=== PATIENT | female | born 1950 | race Caucasian/White ===

== ENCOUNTER → 2016-07-07 | Outpatient (CLI) | payer OTHER ==
[~2016-07-07] MED LIST: CIPR-255 PO; CITA20TA9 PO; CLB/200 PO; LISI-725 PO; METH500T3 PO; MULTTAB58 PO; VITAMIN B12 PO
--- NOTE | 2016-07-07 16:29 | MAMMOGRAPHY REPORT ---
BILATERAL DIGITAL SCREENING MAMMOGRAM WITH CAD: 07/07/2016 CLINICAL HISTORY: Routine screening. Patient has no complaints. TECHNIQUE: Bilateral CC and MLO views were obtained. Current study was also evaluated with a Compu ter Aided Detection (CAD) system. COMPARISON: Comparison is made to exam dated: 07/24/2013 mammogram - [facility]. BREAST COMPOSITION: There are scattered areas of fibroglandular density in both breasts. FINDINGS: There is a benign coarse calcification within the right breast. No suspicious mass, archi tectural distortion or cluster of suspicious microcalcifications is seen. IMPRESSION: ACR BI-RADS CATEGORY 1: NEGATIVE There is no mammographic evidence of malignancy. A 1 year screening mammogram is recommended. The p atient will receive written notification of the results. Approximately 10% of breast cancers are not detected with mammography. A negative mammographic repor t should not delay biopsy if a clinically suggestive mass is present. Joanne Stevenson M.D. ay/:07/07/2016 16:18:48 Auto Dismantler: Ruby PLATA(Leander)(Shaista)(BD), [facility] letter sent: Normal 1/2 BI-RADS Code: ACR BI-RADS Category 1: Negative
== END | disposition home or self-care (01) ==
LOC: C.MAMM 15:58
PROVIDERS: ATTEND Nurse Practitioner
DX: Z12.31 Encounter for screening mammogram for malignant neoplasm of breast (principal)

== ENCOUNTER → 2016-11-10 | Outpatient (CLI) | payer OTHER ==
--- NOTE | 2016-11-10 13:22 | DIAGNOSTIC IMAGING REPORT ---
PA CHEST WITH RIGHT-SIDED RIB SERIES CLINICAL HISTORY: Fall with right chest wall pain. FINDINGS: A PA chest radiograph with 4 additional views may right-sided rib series is compared to study dated 12/26/2015. The patient is status post midline sternotomy. The heart is enlarged and there is atherosclerotic calcification of the thoracic aorta. The pulmonary vasculature is noncongested. Chronic interstitial thickening is similar to previous. Minimal bibasilar atelectasis is observed. No airspace consolidation, pleural effusion, or pneumothorax is seen. The skeletal structures are osteopenic. There is no radiographic evidence of acute/distracted right-sided rib fracture on the rib series as clinically queried. The remainder of the bony thorax is grossly intact. Degenerative changes noted throughout the thoracic spine. IMPRESSION: 1. Cardiomegaly with no active disease in the chest. 2. There is no radiographic evidence of right-sided rib fracture as clinically queried. Electronically signed by: Talha Storey M.D. 11/10/2016 1:21 PM Dictated Date/Time: 11/10/2016 1:19 PM
== END | disposition home or self-care (01) ==
LOC: C.RAD1850 12:59
PROVIDERS: ATTEND Nurse Practitioner
DX: R07.81 Pleurodynia (principal); W19.XXXA Unspecified fall, initial encounter

== ENCOUNTER 2016-12-03 13:19 | Emergency (ER) | payer OTHER ==
[~2016-12-03] VITALS: Ht 165.1 cm; Wt 78.8 kg
[2016-12-03 13:23] VITALS: TEMP 37; Ht 165.1 cm; Wt 78.8 kg
--- NOTE | 2016-12-03 13:56 | DIAGNOSTIC IMAGING REPORT ---
CHEST ONE VIEW PORTABLE CLINICAL HISTORY: dizziness pain. Dyspnea. COMPARISON STUDY: 11/10/2016 FINDINGS: Mild stable cardiomegaly. Prior median sternotomy. Lungs are clear. IMPRESSION: No acute process. Mild stable cardiomegaly. The above report was generated using voice recognition software. It may contain grammatical, syntax or spelling errors. Electronically signed by: Michael Powell M.D. 12/03/2016 1:55 PM Dictated Date/Time: 12/03/2016 1:55 PM
--- NOTE | 2016-12-03 14:02 | EMERGENCY ROOM VISIT NOTE ---
History First contact with patient: 13:28 Chief Complaint: HEAD INJURY (MINOR) Stated Complaint: FELL X 6 DAYS, CURRENTLY HAVING HEADACHES History of Present Illness The patient is a 66 year old female who presents to the Emergency Room with complaints of a fall which occurred 6 days ago. The patient states that she was walking to the grocery store when she became dizzy and fell backward, striking her head. There was no loss of consciousness. There was one episode of vomiting that day. Since the fall, she has had a headache which wraps around from the front to the back of her head. She rates that discomfort a 3/ 10. She states that she has had 3 falls in the past 2 weeks due to "dizziness. " She describes this as feeling lightheaded when she stands up and walks which is resolved when she sits down. The symptoms have been constant for approximately 2 weeks. The patient states that she has seen a neurologist in the past due to a tremor in her right hand and being forgetful. She had imaging done there and was told that she has had "several mini strokes" in the past. The patient does state that occasionally, she also develops palpitations and shortness of breath with the lightheadedness. She denies any chest pain. She had a heart surgery as a child, but denies any other cardiac issues since then. She denies any numbness or weakness of her extremities, blurred vision, slurred speech, or facial drooping. Review of Systems A complete 10 point review of systems was reviewed with the patient with pertinent positives and negatives as per history of present illness. All else were negative. Past Medical/Surgical History Medical Problems: (1) Hypertension Family History Heart disease Social History Smoking Status: Never Smoker Marital Status: Housing Status: lives with family Occupation Status: unemployed Current/Historical Medications Scheduled Celecoxib (CeleBREX), 200 MG PO DAILY Ciprofloxacin Hcl (Cipro), 500 MG PO BID Citalopram Hydrobromide (Celexa), 20 MG PO DAILY Lisinopril (Zestril), 20 MG PO DAILY Methylcellulose (Laxative) (Citrucel), 3 TABS PO DAILY Multiple Vitamin (Multivitamin), 1 TAB PO DAILY [Vitamin B12], 1 TAB PO DAILY Physical Exam Vital Signs Date Time Temp Pulse Resp B/P (MAP) Pulse Ox O2 Delivery O2 Flow Rate FiO2 12/03/16 15:43 53 16 131/96 96 Room Air 12/03/16 14:54 51 18 142/77 96 Room Air 56 124/77 60 111/67 12/03/16 14:09 53 12/03/16 13:23 37.0 49 18 156/81 95 Room Air Physical Exam VITALS: Vitals are noted on the nurse's note and reviewed by myself. Vital signs stable. GENERAL: This is a 66-year-old female, in no acute distress, nondiaphoretic, well-developed well-nourished. SKIN: The skin was without rashes, erythema, edema, or bruising. HEAD: Normocephalic atraumatic. EARS: External auditory canals clear, tympanic membranes pearly copeland without erythema or effusion bilaterally. EYES: Pupils equal round and reactive to light and accommodation. Extraocular movements intact. MOUTH: Mucous membranes moist. NECK: Supple without nuchal rigidity. No lymphadenopathy. No tenderness of the cervical spine. HEART: Regular rate and rhythm without murmurs gallops or rubs. LUNGS: Clear to auscultation bilaterally without wheezes, rales or rhonchi. MUSCULOSKELETAL: Full range of motion throughout. Strength 5/5 throughout. NEURO: Patient was alert and oriented to person place and time. Normal sensation to light and sharp touch. Deep tendon reflexes 2+ throughout. No focal neurological deficits. Normal finger to nose testing. Normal rapid alternating movements. Negative Romberg and pronator drift. Medical Decision & Procedures ER Provider Diagnostic Interpretation: CHEST ONE VIEW PORTABLE FINDINGS: Mild stable cardiomegaly. Prior median sternotomy. Lungs are clear. IMPRESSION: No acute process. Mild stable cardiomegaly. HEAD WITHOUT CONTRAST (CT) Findings: The paranasal sinuses and mastoid air cells are clear. The calvarium and skull base are intact. The ventricles and sulci are within normal limits. There is no mass, hematoma, midline shift, or acute infarct. Mild age-related atrophy and chronic small vessel change Impression: No acute intracranial abnormality. Laboratory Results 12/03/16 14:06 Red Blood Count 4.41, Mean Corpuscular Volume 93.0, Mean Corpuscular Hemoglobin 31.1, Mean Corpuscular Hemoglobin Concent 33.4, Mean Platelet Volume 10.1, Neutrophils (%) (Auto) 54.4, Lymphocytes (%) (Auto) 32.9, Monocytes (%) (Auto) 9.2, Eosinophils (%) (Auto) 2.5, Basophils (%) (Auto) 0.5, Neutrophils # (Auto) 4.48, Lymphocytes # (Auto) 2.71, Monocytes # (Auto) 0.76, Eosinophils # (Auto) 0.21, Basophils # (Auto) 0.04 12/03/16 14:06 Test 12/03/16 14:06 White Blood Count 8.24 K/uL (4.8-10.8) Red Blood Count 4.41 M/uL (4.2-5.4) Hemoglobin 13.7 g/dL (12.0-16.0) Hematocrit 41.0 % (37-47) Mean Corpuscular Volume 93.0 fL (80-100) Mean Corpuscular Hemoglobin 31.1 pg (25-34) Mean Corpuscular Hemoglobin Concent 33.4 g/dl (32-36) Platelet Count 259 K/uL (130-400) Mean Platelet Volume 10.1 fL (7.4-10.4) Neutrophils (%) (Auto) 54.4 % Lymphocytes (%) (Auto) 32.9 % Monocytes (%) (Auto) 9.2 % Eosinophils (%) (Auto) 2.5 % Basophils (%) (Auto) 0.5 % Neutrophils # (Auto) 4.48 K/uL (1.4-6.5) Lymphocytes # (Auto) 2.71 K/uL (1.2-3.4) Monocytes # (Auto) 0.76 K/uL (0.11-0.59) Eosinophils # (Auto) 0.21 K/uL (0-0.5) Basophils # (Auto) 0.04 K/uL (0-0.2) RDW Standard Deviation 44.0 fL (36.4-46.3) RDW Coefficient of Variation 12.9 % (11.5-14.5) Immature Granulocyte % (Auto) 0.5 % Immature Granulocyte # (Auto) 0.04 K/uL (0.00-0.02) Anion Gap 6.0 mmol/L (3-11) Est Creatinine Clear Calc Drug Dose 73.5 ml/min Estimated GFR () 93.4 Estimated GFR (Non- 80.6 BUN/Creatinine Ratio 11.1 (10-20) Calcium Level 9.6 mg/dl (8.5-10.1) Magnesium Level 2.0 mg/dl (1.8-2.4) Total Bilirubin 0.6 mg/dl (0.2-1) Aspartate Amino Transf (AST/SGOT) 21 U/L (15-37) Alanine Aminotransferase (ALT/SGPT) 27 U/L (12-78) Alkaline Phosphatase 107 U/L (45-117) Total Protein 7.6 gm/dl (6.4-8.2) Albumin 3.7 gm/dl (3.4-5.0) Globulin 3.9 gm/dl (2.5-4.0) Albumin/Globulin Ratio 0.9 (0.9-2) Thyroid Stimulating Hormone (TSH) 1.130 uIu/ml (0.300-4.500) ECG Indication: other (presyncope/lightheaded) Rate (beats per minute): 51 Rhythm: sinus bradycardia Findings: nonspecific-ST abn (Anterior), other (incomplete RBBB) Change: no significant change (HR decreased from 60 to 51) ED Course The patient was evaluated as above. Labs were drawn and IV access was obtained. Patient case was discussed with the patient's PCP, BARRY Rios with [facility]. She recommended holding the patient's lisinopril and having the patient follow up in one week. Patient was reevaluated and findings were discussed. Discharge instructions were reviewed with the patient. The patient verbalized understanding of my assessment and treatment plan and was discharged home in good condition. Medical Decision Differential diagnosis includes TIA, CVA, symptomatic bradycardia, Parkinson disorder, intracranial hemorrhage, among others. The patient is a 66-year-old female who presents today complaining of a fall which occurred approximately 6 days ago. More concerning, the patient reports she has had multiple episodes of feeling lightheaded and like she was going to pass out over the past few weeks. For this reason, further workup was obtained. CT of the head was unremarkable. Labs revealed no leukocytosis, anemia or concerning electrolyte abnormalities. Orthostatic vital signs were positive. EKG was performed and did show a slight bradycardia, with heart rates fluctuating between the high 40s and mid 50s. I did speak with the patient's primary care provider to ensure that this was a normal finding for the patient, as the last EKG here shows a heart rate of 60. The PCP did state that this is a normal finding for the patient. She recommended holding the patient's lisinopril and having her follow-up in one week. Patient was informed of all findings. She was also encouraged to drink plenty of fluids and stand up slowly to prevent orthostatic hypotension. The patient was agreeable to this treatment plan and will return for any worsening or new/ concerning symptoms. The patient was independently evaluated by Dr. Lake, ED attending physician , who agreed with my assessment and treatment plan. Based on the patient's presentation and work up, I feel the patient is stable for outpatient treatment. The patient was educated to return to the emergency department for any worsening of their current condition or new/concerning symptoms. She will follow up with her PCP in one week. Medication Reconcilliation Current Medication List: was personally reviewed by me Blood Pressure Screening Patient's blood pressure: Normal blood pressure Impression Primary Impression: Closed head injury Additional Impression: Orthostatic hypotension Departure Information Dispostion Home / Self-Care Condition GOOD Referrals Mary Drake, C.R.N.P. (PCP) Patient Instructions My [facility] Additional Instructions Stop taking the lisinopril (Zestril), as this may be making your blood pressure too low. Follow-up with your primary care provider in one week for a recheck. Call the office for an appointment. Make sure you were staying well-hydrated and drinking plenty of water. Take your time standing up so you do not become lightheaded and fall. Return to the emergency department with any chest pain, numbness, weakness, increased falls or any other new/concerning symptoms. Problem Qualifiers Primary Impression: Closed head injury Encounter type: initial encounter Qualified Codes: S09.90XA - Unspecified injury of head, initial encounter
[2016-12-03 14:22] LABS: BASO % 0.5 %; BASO ABS # 0.04 K/uL (0-0.2); COMPLETE YES; EOS % 2.5 %; IG% 0.5 %; LYMPH % 32.9 %; LYMPH ABS # 2.71 K/uL (1.2-3.4); MEAN CORPUSCULAR HEMOGLOBIN 31.1 pg (25-34); MEAN CORPUSCULAR HGB CONC 33.4 g/dl (32-36); MEAN PLATELET VOLUME 10.1 fL (7.4-10.4); MONO % 9.2 %; NEUT % 54.4 %; PLATELET COUNT 259 K/uL (130-400); RED BLOOD COUNT 4.41 M/uL (4.2-5.4); WHITE BLOOD COUNT 8.24 K/uL (4.8-10.8)
--- NOTE | 2016-12-03 14:24 | DIAGNOSTIC IMAGING REPORT ---
HEAD WITHOUT CONTRAST (CT) CT DOSE: 537.48 mGy.cm HISTORY: Trauma. Mental status change. fall, head injury, dizziness TECHNIQUE: Multiaxial CT images of the head were performed without the use of intravenous contrast. A dose lowering technique was utilized adhering to the principles of ALARA. Comparison: 09/01/2014 Findings: The paranasal sinuses and mastoid air cells are clear. The calvarium and skull base are intact. The ventricles and sulci are within normal limits. There is no mass, hematoma, midline shift, or acute infarct. Mild age-related atrophy and chronic small vessel change Impression: No acute intracranial abnormality. The above report was generated using voice recognition software. It may contain grammatical, syntax or spelling errors. Electronically signed by: Michael Powell M.D. 12/03/2016 2:23 PM Dictated Date/Time: 12/03/2016 2:22 PM
[2016-12-03 14:38] LABS: BUN/CREATININE RATIO 11.1 (10-20); CALCIUM 9.6 mg/dl (8.5-10.1); CREATININE 0.76 mg/dl (0.60-1.20)
[2016-12-03 14:49] LABS: ALB/GLOB RATIO 0.9 (0.9-2); THYROID STIMULATING HORMONE 1.13 uIu/ml (0.300-4.500)
--- NOTE | 2016-12-03 15:42 | EMERGENCY ROOM VISIT NOTE ---
ED Visit Note First contact with patient: 13:28 Pt seen at bedside. Discussed sx. The PA discussed with pt's PCP. All questions answered at bedside. VS stable, labs and imaging reassuring.
[2016-12-03 15:43] VITALS: BP 131/96; PULSE 53; O2SAT 96
== END 2016-12-03 15:47 | disposition home or self-care (01) ==
LOC: C.EDB 13:21 → C.EDC 15:47
DX: S09.90XA Unspecified injury of head, initial encounter (principal); I95.1 Orthostatic hypotension; W19.XXXA Unspecified fall, initial encounter; I10 Essential (primary) hypertension

== ENCOUNTER → 2017-03-11 | Outpatient (CLI) | payer OTHER ==
[2017-03-11 12:21] LABS: URINE APPEARANCE CLEAR (CLEAR); URINE BILIRUBIN NEG (NEG); URINE COLOR YELLOW; URINE NITRITE NEG (NEG); URINE PH 8.5 (4.5-7.5); URINE SPECIFIC GRAVITY 1.011 (1.000-1.030); UROBILINOGEN NEG (NEG); ZZUR CULT IF INDIC CLEAN CATCH NO
[2017-03-11 12:32] LABS: MANUAL MICROSCOPIC REQUIRED? NO; REVIEW REQ? NO
[2017-03-11 12:33] LABS: BLOOD UREA NITROGEN 8 mg/dl (7-18); BUN/CREATININE RATIO 9.9 (10-20); CALCIUM 9.5 mg/dl (8.5-10.1); CARBON DIOXIDE 22 mmol/L (21-32); CHLORIDE 108 mmol/L (98-107); CHOLESTEROL 287 mg/dl (0-200); CREATININE 0.82 mg/dl (0.60-1.20); GLUCOSE 122 mg/dl (70-99); POTASSIUM 3.9 mmol/L (3.5-5.1); SODIUM 139 mmol/L (136-145); TRIGLYCERIDES 53 mg/dl (0-150); VERY LOW DENSITY LIPOPROT CALC 11 mg/dl
[2017-03-11 12:37] LABS: CHOLESTEROL/HDL RATIO 4.4; HDL CHOLESTEROL 65 mg/dl; LDL CHOLESTEROL CALCULATED 211 mg/dl
== END | disposition home or self-care (01) ==
LOC: C.LABBFT 07:55
PROVIDERS: ATTEND Nurse Practitioner
DX: N39.0 Urinary tract infection, site not specified (principal); E78.5 Hyperlipidemia, unspecified; E55.9 Vitamin D deficiency, unspecified

== ENCOUNTER → 2017-07-15 | Outpatient (CLI) | payer OTHER ==
[2017-07-15 17:06] LABS: ALBUMIN 3.5 gm/dl (3.4-5.0); ALT/SGPT 21 U/L (12-78); AST/SGOT 16 U/L (15-37); BLOOD UREA NITROGEN 7 mg/dl (7-18); CALCIUM 9.1 mg/dl (8.5-10.1); CARBON DIOXIDE 28 mmol/L (21-32); CREATININE 0.85 mg/dl (0.60-1.20); GLUCOSE 93 mg/dl (70-99); POTASSIUM 3.8 mmol/L (3.5-5.1); SODIUM 144 mmol/L (136-145)
[2017-07-15 17:08] LABS: ALKALINE PHOSPHATASE 82 U/L (45-117); TOTAL PROTEIN 7.4 gm/dl (6.4-8.2)
[2017-07-16 06:57] LABS: HEMOGLOBIN A1C 5.3 % (4.5-5.6)
== END | disposition home or self-care (01) ==
LOC: C.LABBFT 14:23
PROVIDERS: ATTEND Nurse Practitioner
DX: E55.9 Vitamin D deficiency, unspecified (principal); I10 Essential (primary) hypertension

== ENCOUNTER 2020-10-18 21:17 | Inpatient (IN) ==
[2020-10-18 21:43] LABS: Basophils # (auto) 0.03 K/uL (0-0.2); Basophils % (auto) 0.3 %; Eosinophils # (auto) 0.12 K/uL (0-0.5); Eosinophils % (auto) 1.1 %; Hemoglobin 12.8 g/dL (12.0-16.0); Immature Granulocytes # (auto) 0.13 K/uL (0.00-0.02); Immature Granulocytes % (auto) 1.1 %; Lymphocytes # (auto) 1.72 K/uL (1.2-3.4); Lymphocytes % (auto) 15.2 %; Mean Corpuscular Hemoglobin 30.9 pg (25-34); Mean Corpuscular Hgb Conc 32.8 g/dL (32-36); Mean Corpuscular Volume 94.2 fL (80-100); Mean Platelet Volume 10.6 fL (7.4-10.4); Monocytes # (auto) 0.69 K/uL (0.11-0.59); Monocytes % (auto) 6.1 %; Neutrophils # (auto) 8.63 K/uL (1.4-6.5); Neutrophils % (auto) 76.2 %; Platelet Count 180 K/uL (130-400); RDW Coefficient of Variation 13.3 % (11.5-14.5); Red Blood Count 4.14 M/uL (4.2-5.4); White Blood Count 11.32 K/uL (4.8-10.8)
--- NOTE | 2020-10-18 21:48 | XRay Report ---
XR chest 1V portable HISTORY: 70 years-old Female Chest Pain acute atypical chest pain COMPARISON: Chest radiograph 12/03/2016 TECHNIQUE: Portable AP view of the chest FINDINGS: Cardiac silhouette is enlarged. Prior median sternotomy. Mild left greater than right bibasilar opaci ties. Mild chronic interstitial coarsening. No pneumothorax, large pleural effusion or overt pulmonar y edema. Bones appear grossly intact. IMPRESSION: 1. Cardiomegaly without overt pulmonary edema. 2. Mild left greater than right bibasilar opacities suggestive of atelectasis versus pneumonitis. ACT 112: Negative or not required by law. The above report was generated using voice recognition software. It may contain grammatical, syntax o r spelling errors. Electronically signed by: Patricio Belle M.D. 10/18/2020 9:46 PM
[2020-10-18 21:55] LABS: Partial Thromboplastin Ratio 0.9; Partial Thromboplastin Time 23.4 Seconds (21.0-31.0)
[2020-10-18 22:12] LABS: Albumin Level 3.2 gm/dl (3.4-5.0); BUN Creatinine Ratio 17.2 (10-20); Bilirubin,Total 0.3 mg/dl (0.2-1); Calcium 7.6 mg/dl (8.5-10.1); Creatinine Clr Calc Pharmacy 61.9 ml/min; Est GFR (African American) 81.7 ml/min; Est GFR (Non-African American) 70.4 ml/min; Globulin 3.2 gm/dl (2.5-4.0); Potassium 3.2 mmol/L (3.5-5.1); Total Protein 6.4 gm/dl (6.4-8.2); Troponin I 0.045 ng/ml (0-0.045)
[2020-10-18] MEDS ORDERED: OPTIRAY 320 125ml IV ONE (22:19)
[2020-10-18] MEDS ORDERED: POTASSIUM CHLORIDE CRTAB 20 MEQ TABCR PO STA (22:22)
--- NOTE | 2020-10-18 22:37 | CT Scan Report ---
CT angio chest PE protocol CT DOSE: 436.29 mGy.cm HISTORY: 70 years-old Female with PE. Acute shortness of breath with left-sided chest pain TECHNIQUE: Multiple CTA images of the chest were obtained after the intravenous administration of 120 ml Optiray. Coronal and sagittal MIPS were obtained from the axial data set and were submitted for review. All measurements were obtained according to NASCET criteria. A dose lowering technique was u tilized adhering to the principles of ALARA. COMPARISON: Chest radiograph of same day FINDINGS: CTA: The heart is upper limits of normal in size. Prior median sternotomy. Mild coronary artery calcificat ions. Moderate atherosclerosis of the thoracic aorta without aneurysm. No dissection. 1.5 cm saccular outpouching involves the left ventricular apex. The segmental and subsegmental branches of the pulmo nary arterial tree are suboptimally evaluated secondary to respiratory motion. No pulmonary emboli id entified. CT CHEST: Heterogeneity with mild nodularity of the thyroid. No adenopathy. No pneumothorax, pleural effusion o r overt pulmonary edema. Linear subsegmental dependent bibasilar consolidative opacities. Central air ways are patent. Mild nonspecific wall thickening of the distal esophagus. Unremarkable soft tissues. Angulated fractu res of the anterior left second and third ribs with mild sclerosis of the anterior left fourth and fi fth ribs. IMPRESSION: 1. No pulmonary emboli. 2. Mild bibasilar opacities suggestive of atelectasis. 3. 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 4. Angulated fractures of the anterior left third and fourth ribs with mild sclerosis of the anterior left fourth and fifth ribs. These fractures are favored to be subacute or chronic however should be correlated with point tenderness. 5. No pneumothorax. ACT 112: Negative or not required by law. The above report was generated using voice recognition software. It may contain grammatical, syntax o r spelling errors. Electronically signed by: Patricio Belle M.D. 10/18/2020 10:36 PM
[2020-10-18] MEDS ORDERED: Heparin IV Adult Wt-Based Low-Dose WITH Bolus Protocol STA (22:52)
--- NOTE | 2020-10-18 23:05 | XRay Report ---
XR ankle RT min 3V routine HISTORY: 70 years-old Female r ankle pain acute pain and swelling of the right ankle COMPARISON: None TECHNIQUE: 3 views of the right ankle FINDINGS: Moderate circumferential soft tissue swelling. There is an acute nondisplaced transverse fracture inv olving the lateral malleolus. Small joint effusion. Spurring of the calcaneus. Demineralized appearan ce the bones with mild multifocal osteoarthritis. IMPRESSION: Acute nondisplaced fracture of the lateral malleolus. ACT 112: Negative or not required by law. The above report was generated using voice recognition software. It may contain grammatical, syntax o r spelling errors. Electronically signed by: Patricio Belle M.D. 10/18/2020 11:04 PM
[2020-10-18] MEDS ORDERED: HEPARIN SOD (PORCINE) 1000 UNIT/ML IV ONE (23:07)
[2020-10-18] MEDS ORDERED: HEPARIN SODIUM/DEXTROSE 25,000 UNITS/500 ML BAG IV SCH (23:15)
[2020-10-19] MEDS ORDERED: Heparin IV Adult Wt-Based Low-Dose WITH Bolus Protocol STA (00:26)
--- NOTE | 2020-10-19 00:33 | Emergency Department Note ---
Impression & Plan Cardiac arrest, Abnormal EKG, Acute hypokalemia, Ankle fracture ED Provider Note NAME: CURT HARMON AGE: 70 SEX: F : 1950 ARRIVES VIA: Ambulance INFORMANT: Patient, EMS and ED PROVIDER(S): Andi Rios DO CHIEF COMPLAINT: Cardiac arrest HPI: Patient is a 68-year-old female with a past medical history of vascular dementia, asthma, aortic stenosis's, GERD, hypertension and CABG who presents the ER following a cardiac arrest. She was eating dinner became short of breath. She went into the bathroom where the found her to be unresp onsive pulseless and apneic. He called for EMS. There is some CPR performed at home per EMS. When EMS got there she was awake. There bring her out and she arrested again. She became apneic and pulseless. They performed CPR for about 2 minutes. She was not on the monitor at this time. She not receive any medications. Eventually regained ROSC and she woke back up. She was transported via ALS. There is no further incidents. She is awake alert and oriented. She is complaining of chest wall pain. ROS: See above HPI for pertinent positives & negatives. A total of 10 systems reviewed and were otherwise negative. PAST MEDICAL HISTORY:See Below PAST SURGICAL HISTORY:See Below FAMILY HISTORY:See Below SOCIAL HISTORY:See Below HOME MEDICATIONS:See Below ALLERGIES:See Below VITALS:See Below PHYSICAL EXAMINATION: GENERAL: Sitting up in bed, alert, well appearing, well nourished, no distress, non-toxic EYE EXAM: normal conjunctiva. PERRL and EOM's grossly intact. OROPHARYNX: no exudate, no erythema, lips, buccal mucosa, and tongue normal and mucous membranes are moist NECK: supple, no nuchal rigidity, no adenopathy, non-tender LUNGS: Clear to auscultation. Normal chest wall mechanics HEART: no murmurs, S1 normal and S2 normal ABDOMEN: abdomen soft, non-tender, normo-active bowel sounds, no masses, no rebound or guarding. UPPER EXTREMITIES: upper extremities are grossly normal. LOWER EXTREMITIES: Tenderness and swelling and bruising over the right lateral malleolus NEURO EXAM: Normal sensorium, cranial nerves II-XII intact, normal speech, no weakness of arms, no weakness of legs. No drift. Finger to nose intact. Gross sensation intact. MEDICAL DECISION MAKING: Patient is a 70-year-old female who presents the ER following a cardiac arrest which was witnessed by EMS/BLS. IV was established blood work was obtained. Labs showed a mild leukocytosis 11,000. No significant anemia. BMP with mild hypokalemia at 3.2. This was repleted. CO2 is slightly low which I do favor secondary to the arrest. LFTs bilirubin was unremarkable. Troponin was detectable at 0.045. Lipase was unremarkable. Covid was negative. CT Raina of the chest showed several rib fractures. No PEs. EKG following arrival showed worsening ST wave changes. Following obtaining the EKG and history discussed with cardiology Stevo Shaw who recommended discussed with the interventionalist. Discussed with Mil from interventional cardiology who is the attending physician. Reviewed the history and he recommended a CT angio and await further blood work. Following the results of both of these I called him back and discussed. He recommended placing the patient on heparin and admitting to the hospitalist. If situation changes patient will be cath tonight. If not the patient will be cath in the morning. I did send him a current EKG and previous EKGs. He did recommend placing the patient on heparin drip. This was held as the patient was found to have an abrasion on the head. CT head was negative. Patient had no other bleeding risk factors. Ordered heparin drip and bolus. Case was discussed with Dr. Jarquin admitted to the ICU. Patient did have a fracture of the right lateral malleolus and was placed in a boot. Triage Nursing notes reviewed. Limited review of prior medical records performed Vital Signs: reviewed and remarkable for hypotension Differential diagnosis: Differential diagnoses includes but is not limited to acute coronary syndrome, myocardial infarction, pericarditis, pulmonary embolus, aortic dissection, pneumonia, pneumothorax, musculoskeletal, shingles, esophageal. ER treatment provided: See below Diagnostics interpreted by me: ECG: Sinus rhythm rate of [address] depressions in the inferior leads anterior and lateral leads with T wave inversion slight ST segment elevation in V1 and V2 Prolonged QTC When compared to previous ST depressions are worse in the lateral leads Cardiac Monitoring: An order was placed for continuous cardiac monitoring. The monitor shows a rate of 90 with sinus rhythm. Laboratory studies: As stated above and show below. Imaging studies: CT head was negative CT Raina of the chest was negative X-ray of the right ankle shows distal fracture of the fibula Consultation(s): Discussed with Dr. Jaeger from interventional cardiology recommended heparin drip and monitor closely Discussed with Dr. Stevo Shaw who recommended discussing with interventional cardiology Discussed with Arash Torres for admission Discussed with Harpal from the vice president of procurement service Procedures: none Critical Care: I have personally spent 45 minutes of critical care time in the direct management of this patient. This includes bedside care, interpretation of diagnostic studies, and testing, discussion with consultants, patient, and family members, and other required patient management activities. This 45 minutes is in excess of all separately billable procedures. Past Med/Surg History Medical History Arrhythmia "skips a beat", old, nothing new Asymptomatic menopausal state Bronchitis Cataract Depression with anxiety Distal radius fracture Right Erosive gastropathy Esophageal abnormality tortuous esophagus Forgetfulness Hiatal hernia History of esophageal dilatation History of urinary urgency Hypertension Inflamed acrochordon Lumbar facet joint syndrome Orthostatic hypotension Osteoarthritis Stumbling gait BLE weakness Transient ischemic attack (TIA) >5 years ago, [facility] Urinary incontinence Urinary tract infection hx Surgical History H/O section X 2 History of cataract surgery History of esophagogastroduodenoscopy (EGD) 08/08/20 [place] History of heart surgery at 13 years old, open heart d/t ? 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 Feels Safe at Home: Yes Childhood Exposure to Second-Hand Smoke: Yes caffeine: Yes Dental Care, Regularly: No Physical Activity Frequency: 3-4 Times per Week Seatbelt Use: always Sunscreen Use: No Assistive Devices: Cane and Walker Allergies Allergies Allergy/AdvReac Type Severity Reaction Status Date / Time aspirin Allergy Mild makes her Verified 10/18/20 22:29 sick Sulfa (Sulfonamide Allergy Unknown Unknown rxn Verified 10/18/20 22:29 Antibiotics) metoprolol AdvReac Intermediate makes her Verified 10/18/20 22:29 sick Home Meds Home Medications Medication Instructions Recorded Confirmed celecoxib 200 mg capsule 200 mg PO QAM 08/07/20 10/18/20 cholecalciferol (vitamin D3) 50 50 mcg PO QPM 08/07/20 10/18/20 mcg (2,000 unit) capsule citalopram 40 mg tablet 40 mg PO QPM 08/07/20 10/18/20 cyanocobalamin (vitamin B-12) 1,000 mcg PO QPM 08/07/20 10/18/20 1,000 mcg tablet (Vitamin B-12) fluticasone furoate 100 1 puffs INH QAM PRN 08/07/20 10/18/20 mcg-vilanterol 25 mcg/dose inhalation powder (Breo Ellipta) multivitamin 1 tab PO QPM 08/07/20 10/18/20 topiramate 25 mg tablet 25 mg PO BID 10/18/20 10/18/20 Previous Rx's Medication Instructions Recorded alendronate 70 mg tablet 70 mg PO WEEKLY #12 tab 08/05/20 pantoprazole 40 mg tablet,delayed 40 mg PO DAILY #30 tab 08/21/20 release (Protonix) lisinopril 5 mg tablet 5 mg PO QAM #90 tab 09/04/20 oxybutynin chloride 15 mg 15 mg PO QAM #90 tab 10/15/20 tablet,extended release 24 hr Results & Data (ED) Vital Signs Vital Signs - 24 hr 10/18/20 21:30 10/18/20 21:35 10/18/20 21:41 Temperature 36.6 C Temperature Source Oral Pulse Rate 95 H 99 H Pulse Rate [Right Finger] Pulse Rate from SpO2 Sensor 96 H Pulse Rhythm [Right Finger] Pulse Strength [Right Finger] Respiratory Rate 22 18 Respiratory Effort / Characteristics Respiratory Depth Respiratory Pattern Blood Pressure 105/69 105/69 Blood Pressure [Right Arm] Blood Pressure Mean 81 81 Blood Pressure Mean [Right Arm] Blood Pressure Position Sitting Pulse Oximetry 95 94 96 Oxygen Delivery Method Nasal Cannula Nasal Cannula Oxygen Flow Rate 2 2 Sepsis Recent Fever Within 48 Hours No Sepsis New/Unexplained Change in Mental Status No Sepsis Action Taken by Nursing No Action Required 10/18/20 22:00 10/18/20 22:26 10/18/20 22:50 Temperature Temperature Source Pulse Rate 94 H 95 H 85 Pulse Rate [Right Finger] 96 H Pulse Rate from SpO2 Sensor 94 H 95 H 85 Pulse Rhythm [Right Finger] Regular Pulse Strength [Right Finger] Normal Respiratory Rate 21 21 22 Respiratory Effort / Characteristics Non-Labored Respiratory Depth Normal Respiratory Pattern Regular Blood Pressure 97/64 L Blood Pressure [Right Arm] 97/64 L Blood Pressure Mean 75 Blood Pressure Mean [Right Arm] 75 Blood Pressure Position Pulse Oximetry 96 93 94 Oxygen Delivery Method Nasal Cannula Oxygen Flow Rate 2 Sepsis Recent Fever Within 48 Hours Sepsis New/Unexplained Change in Mental Status Sepsis Action Taken by Nursing 10/18/20 23:00 10/18/20 23:10 10/18/20 23:30 Temperature Temperature Source Pulse Rate 85 82 75 Pulse Rate [Right Finger] Pulse Rate from SpO2 Sensor 85 83 75 Pulse Rhythm [Right Finger] Pulse Strength [Right Finger] Respiratory Rate 29 H 20 24 Respiratory Effort / Characteristics Respiratory Depth Respiratory Pattern Blood Pressure 119/76 Blood Pressure [Right Arm] Blood Pressure Mean 90 Blood Pressure Mean [Right Arm] Blood Pressure Position Pulse Oximetry 96 97 99 Oxygen Delivery Method Nasal Cannula Oxygen Flow Rate 2 Sepsis Recent Fever Within 48 Hours Sepsis New/Unexplained Change in Mental Status Sepsis Action Taken by Nursing Laboratory Data Result diagrams: 10/18/20 21:33 10/18/20 21:33 Lab Results 10/18/20 10/18/20 10/18/20 Range/Units 21:33 21:33 21:33 WBC 11.32 H (4.8-10.8) K/uL RBC 4.14 L (4.2-5.4) M/uL Hgb 12.8 (12.0-16.0) g/dL Hct 39.0 (37-47) % MCV 94.2 (80-100) fL MCH 30.9 (25-34) pg MCHC 32.8 (32-36) g/dL RDW Std Deviation 46.0 (36.4-46.3) fL RDW Coeff of [place] 13.3 (11.5-14.5) % Plt Count 180 (130-400) K/uL MPV 10.6 H (7.4-10.4) fL Immature Gran % (Auto) 1.1 % Neut % (Auto) 76.2 % Lymph % (Auto) 15.2 % [place] % (Auto) 6.1 % Eos % (Auto) 1.1 % Baso % (Auto) 0.3 % Neut # (Auto) 8.63 H (1.4-6.5) K/uL Lymph # (Auto) 1.72 (1.2-3.4) K/uL [place] # (Auto) 0.69 H (0.11-0.59) K/uL Eos # (Auto) 0.12 (0-0.5) K/uL Baso # (Auto) 0.03 (0-0.2) K/uL Immature Gran # (Auto) 0.13 H (0.00-0.02) K/uL APTT 23.4 (21.0-31.0) Seconds PTT Ratio 0.9 Sodium 143 (136-145) mmol/L Potassium 3.2 L (3.5-5.1) mmol/L Chloride 116 H (98-107) mmol/L Carbon Dioxide 20 L (21-32) mmol/L Anion Gap 7.0 (3-11) BUN 14 (7-18) mg/dl Creatinine 0.83 (0.6-1.2) mg/dl Est Cr Clr Drug Dosing 61.9 ml/min Est GFR ( Amer) 81.7 ml/min Est GFR (Non-Af Amer) 70.4 ml/min BUN/Creatinine Ratio 17.2 (10-20) Glucose 238 H (70-99) mg/dl Calcium 7.6 L (8.5-10.1) mg/dl Total Bilirubin 0.3 (0.2-1) mg/dl AST 34 (15-37) U/L ALT 29 (12-78) U/L Alkaline Phosphatase 57 (45-117) U/L Troponin I 0.045 (0-0.045) ng/ml Total Protein 6.4 (6.4-8.2) gm/dl Albumin 3.2 L (3.4-5.0) gm/dl Globulin 3.2 (2.5-4.0) gm/dl Albumin/Globulin Ratio 1.0 (0.9-2) Lipase 110 (73-393) U/L Specimen Hemolysis COVID-19 Eval Order SARS-CoV-2 (PCR) (Negative) 10/18/20 10/18/20 Range/Units 22:39 22:39 WBC (4.8-10.8) K/uL RBC (4.2-5.4) M/uL Hgb (12.0-16.0) g/dL Hct (37-47) % MCV (80-100) fL MCH (25-34) pg MCHC (32-36) g/dL RDW Std Deviation (36.4-46.3) fL RDW Coeff of [place] (11.5-14.5) % Plt Count (130-400) K/uL MPV (7.4-10.4) fL Immature Gran % (Auto) % Neut % (Auto) % Lymph % (Auto) % [place] % (Auto) % Eos % (Auto) % Baso % (Auto) % Neut # (Auto) (1.4-6.5) K/uL Lymph # (Auto) (1.2-3.4) K/uL [place] # (Auto) (0.11-0.59) K/uL Eos # (Auto) (0-0.5) K/uL Baso # (Auto) (0-0.2) K/uL Immature Gran # (Auto) (0.00-0.02) K/uL APTT (21.0-31.0) Seconds PTT Ratio Sodium (136-145) mmol/L Potassium (3.5-5.1) mmol/L Chloride (98-107) mmol/L Carbon Dioxide (21-32) mmol/L Anion Gap (3-11) BUN (7-18) mg/dl Creatinine (0.6-1.2) mg/dl Est Cr Clr Drug Dosing ml/min Est GFR ( Amer) ml/min Est GFR (Non-Af Amer) ml/min BUN/Creatinine Ratio (10-20) Glucose (70-99) mg/dl Calcium (8.5-10.1) mg/dl Total Bilirubin (0.2-1) mg/dl AST (15-37) U/L ALT (12-78) U/L Alkaline Phosphatase (45-117) U/L Troponin I (0-0.045) ng/ml Total Protein (6.4-8.2) gm/dl Albumin (3.4-5.0) gm/dl Globulin (2.5-4.0) gm/dl Albumin/Globulin Ratio (0.9-2) Lipase (73-393) U/L Specimen Hemolysis COVID-19 Eval Order Covid19 at [facility] SARS-CoV-2 (PCR) NEGATIVE (Negative) Administered Medications Discontinued Medications Ioversol (Optiray 320 125ml) 120 ml IV ONCE ONE Stop: 10/18/20 22:20 Last Admin: 10/18/20 22:19 Dose: 120 ml Documented by: [id number] Potassium Chloride (Potassium Chloride Crtab 20 Meq Tabcr) 40 meq PO NOW STA Stop: 10/18/20 22:23 Last Admin: 10/18/20 22:38 Dose: 40 meq Documented by: [id number] Imaging Data Radiologist's Impression: Chest X-Ray 10/18/20 21:17 XR chest 1V portable HISTORY: 70 years-old Female Chest Pain acute atypical chest pain COMPARISON: Chest radiograph 12/03/2016 TECHNIQUE: Portable AP view of the chest FINDINGS: Cardiac silhouette is enlarged. Prior median sternotomy. Mild left greater than right bibasilar opacities. Mild chronic interstitial coarsening. No pneumothorax, large pleural effusion or overt pulmonary edema. Bones appear g rossly intact. IMPRESSION: 1. Cardiomegaly without overt pulmonary edema. 2. Mild left greater than right bibasilar opacities suggestive of atelectasis versus pneumonitis. ACT 112: Negative or not required by law. The above report was generated using voice recognition software. It may contain grammatical, syntax or spelling errors. Electronically signed by: Patricio Belle M.D. 10/18/2020 9:46 PM Chest CTA 10/18/20 21:53 CT angio chest PE protocol CT DOSE: 436.29 mGy.cm HISTORY: 70 years-old Female with PE. Acute shortness of breath with left- sided chest pain TECHNIQUE: Multiple CTA images of the chest were obtained after the intravenous administration of 120 ml Optiray. Coronal and sagittal MIPS were obtained from the axial data set and were submitted for review. All measurements were obtained according to NASCET criteria. A dose lowering technique was utilized a dhering to the principles of ALARA. COMPARISON: Chest radiograph of same day FINDINGS: CTA: The heart is upper limits of normal in size. Prior median sternotomy. Mild coronary artery calcifications. Moderate atherosclerosis of the thoracic aorta without aneurysm. No dissection. 1.5 cm saccular outpouching involves the left ventricular apex. The segmental and subsegmental branches of the pulmonary arterial tree are suboptimally evaluated secondary to respiratory motion. No pulmonary emboli identified. CT CHEST: Heterogeneity with mild nodularity of the thyroid. No adenopathy. No pneumothorax, pleural effusion or overt pulmonary edema. Linear subsegmental dependent bibasilar consolidative opacities. Central airways are patent. Mild nonspecific wall thickening of the distal esophagus. Unremarkable soft tissues. Angulated fractures of the anterior left second and third ribs with mild sclerosis of the anterior left fourth and fifth ribs. IMPRESSION: 1. No pulmonary emboli. 2. Mild bibasilar opacities suggestive of atelectasis. 3. 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 4. Angulated fractures of the anterior left third and fourth ribs with mild sclerosis of the anterior left fourth and fifth ribs. These fractures are favored to be subacute or chronic however should be correlated with point ten derness. 5. No pneumothorax. ACT 112: Negative or not required by law. The above report was generated using voice recognition software. It may contain grammatical, syntax or spelling errors. Electronically signed by: Patricio Belle M.D. 10/18/2020 10:36 PM Ankle X-Ray 10/18/20 22:44 XR ankle RT min 3V routine HISTORY: 70 years-old Female r ankle pain acute pain and swelling of the right ankle COMPARISON: None TECHNIQUE: 3 views of the right ankle FINDINGS: Moderate circumferential soft tissue swelling. There is an acute nondisplaced transverse fracture involving the lateral malleolus. Small joint effusion. Spurring of the calcaneus. Demineralized appearance the bones with mild multifocal osteoarthritis. IMPRESSION: Acute nondisplaced fracture of the lateral malleolus. ACT 112: Negative or not required by law. The above report was generated using voice recognition software. It may contain grammatical, syntax or spelling errors. Electronically signed by: Patricio Belle M.D. 10/18/2020 11:04 PM Discharge Plan Visit Data Chief Complaint: Cardiac Assessment Stated Complaint: POST CARDIAC ARREST ED Provider: Andi Rios Discharge Problem: Cardiac arrest, Abnormal EKG, Acute hypokalemia, Ankle fracture Forms Stand Alone Forms: [facility] Prescriptions Prescriptions: No Action lisinopril 5 mg tablet 5 mg PO QAM Qty: 90 RF: 3 oxybutynin chloride 15 mg tablet extended release 24 hr 15 mg PO QAM Qty: 90 RF: 3 alendronate 70 mg tablet 70 mg PO WEEKLY Qty: 12 RF: 5 pantoprazole [Protonix] 40 mg tablet,delayed release (DR/EC) 40 mg PO DAILY Qty: 30 RF: 2 multivitamin Tablet 1 tab PO QPM RF: 0 cyanocobalamin (vitamin B-12) [Vitamin B-12] 1,000 mcg Tablet 1,000 mcg PO QPM RF: 0 celecoxib 200 mg capsule 200 mg PO QAM RF: 0 citalopram 40 mg tablet 40 mg PO QPM RF: 0 cholecalciferol (vitamin D3) 50 mcg (2,000 unit) capsule 50 mcg PO QPM RF: 0 Breo Ellipta 100-25 mcg/dose blister with device 1 puffs INH QAM PRN (Reason: Shortness Of Breath) RF: 0 topiramate 25 mg tablet 25 mg PO BID RF: 0 Referrals Referrals: Mary Drake CRNP [Primary Care Provider] - Discharge Problem: Ankle fracture Qualifiers: Encounter type: initial encounter Fracture type: closed Laterality: right Qualified Code(s): S82.891A - Other fracture of right lower leg, initial encounter for closed fracture
[2020-10-19 00:36] LABS: Magnesium 1.8 mg/dl (1.8-2.4)
[2020-10-19] MEDS ORDERED: HEPARIN SOD (PORCINE) 1000 UNIT/ML IV ONE (00:41)
--- NOTE | 2020-10-19 00:55 | History & Physical Report ---
Date of Service October 19, 2020 Assessment & Plan (1) Cardiac arrest: Plan: Cardiac arrest/left ventricular aneurysm 1.5 cm/mild aortic stenosis- Status post cardiac arrest x2 in the field Return to ROSC after CPR. Patient is alert and responsive in the emergency department, without memory of the events The patient will be admitted to ICUfor serial cardiac enzymes, serial EKG's, cardiac rhythm monitoring and a 2-D echocardiogram with Dopplers. Her case was written by interventional cardiology by ED physician with the following recommendations: Patient is remitted to the hospital on heparin IV, without amiodarone, and cardiac catheterization will be performed in the a.m. (2) Left ventricular aneurysm: Plan: See above (3) Rib fractures: Plan: Asymptomatic at this time, likely chronic (4) Ankle fracture: Plan: Closed right ankle fracture- Patient will be placed in a walking boot for now, will consult orthopedic surgery after cardiac issues addressed (5) Acute hypokalemia: Plan: Potassium 3.2 upon admission. Patient was given Klor-Con 40 mEq in the ED. Placed on NSS + KCl 20 mEq at 80 mils per hour Reviewed laboratories in a.m. Check a magnesium level (6) Vascular dementia without behavioral disturbance: Plan: Vascular dementia/depression with anxiety No acute issues at this time Continue citalopram and topiramate (7) Dyslipidemia: Plan: Start high-dose statin, atorvastatin 80 mg daily Check a fasting lipid panel and hemoglobin A1c (8) Asthma: Plan: Continue Breo Ellipta (9) Aortic stenosis, mild: Plan: See above (10) Depression with anxiety: Plan: See above (11) GERD (gastroesophageal reflux disease): Plan: Continue pantoprazole History of Present Illness Chief Complaint: The patient is brought to the emergency department by EMS following cardiac arrest x2 in the outpatient setting Primary Care Provider: BARRY Bahena The patient is a 70-year-old female with a past medical history including vascular dementia, vitamin D deficiency, urinary incontinence, osteoporosis, osteoarthritis, impaired fasting glucose, gait disturbance, dyslipidemia, chronic diarrhea, chronic cerebral ischemia, cerebral amyloid angiopathy, asthma, mild aortic stenosis, essential tremor, thoracic facet syndrome, myofascial pain, GERD, depression with anxiety, hypertension, lumbar facet joint syndrome and stumbling gait. Patient was D eating dinner this evening when she became acutely short of breath she then went into the bathroom, and her found her unresponsive, pulseless and apneic. He called for EMS, and while waiting did have some CPR performed by family. When EMS arrived, she was awake, but when she was being brought into the ambulance she arrested again. EMS performed CPR for about 2 minutes, did have ROSC, and did wake up again. In the emergency department patient was alert awake and responsive, and did not have any abnormal rhythms during her emergency department stay. Work-up included chest x-ray which showed bibasilar changes left greater than right. CT angiography of chest showed left ventricular 1.5 cm saccular aneurysm. Left third and fourth ribs fracture that were considered subacute/chronic. Right foot and ankle x-ray showed a right lateral malleolus fracture Laboratories: Potassium was 3.2 Allergies Allergy/AdvReac Type Severity Reaction Status Date / Time aspirin Allergy Mild makes her Verified 10/18/20 22:29 sick Sulfa (Sulfonamide Allergy Unknown Unknown rxn Verified 10/18/20 22:29 Antibiotics) metoprolol AdvReac Intermediate makes her Verified 10/18/20 22:29 sick Home Medications Medication Instructions Recorded Confirmed Type alendronate 70 mg tablet 70 mg PO WEEKLY #12 tab 08/05/20 10/18/20 Rx celecoxib 200 mg capsule 200 mg PO QAM 08/07/20 10/18/20 History cholecalciferol (vitamin D3) 50 50 mcg PO QPM 08/07/20 10/18/20 History mcg (2,000 unit) capsule citalopram 40 mg tablet 40 mg PO QPM 08/07/20 10/18/20 History cyanocobalamin (vitamin B-12) 1,000 mcg PO QPM 08/07/20 10/18/20 History 1,000 mcg tablet (Vitamin B-12) fluticasone furoate 100 1 puffs INH QAM PRN 08/07/20 10/18/20 History mcg-vilanterol 25 mcg/dose inhalation powder (Breo Ellipta) multivitamin 1 tab PO QPM 08/07/20 10/18/20 History pantoprazole 40 mg tablet,delayed 40 mg PO DAILY #30 tab 08/21/20 10/18/20 Rx release (Protonix) lisinopril 5 mg tablet 5 mg PO QAM #90 tab 09/04/20 10/18/20 Rx oxybutynin chloride 15 mg 15 mg PO QAM #90 tab 10/15/20 10/18/20 Rx tablet,extended release 24 hr topiramate 25 mg tablet 25 mg PO BID 10/18/20 10/18/20 History Past Med/Surg History Medical History Arrhythmia "skips a beat", old, nothing new Asymptomatic menopausal state Bronchitis Cataract Depression with anxiety Distal radius fracture Right Erosive gastropathy Esophageal abnormality tortuous esophagus Forgetfulness Hiatal hernia History of esophageal dilatation History of urinary urgency Hypertension Inflamed acrochordon Lumbar facet joint syndrome Orthostatic hypotension Osteoarthritis Stumbling gait BLE weakness Transient ischemic attack (TIA) >5 years ago, [facility] Urinary incontinence Urinary tract infection hx Surgical History H/O section X 2 History of cataract surgery History of esophagogastroduodenoscopy (EGD) 08/08/20 [place] History of heart surgery at 13 years old, open heart d/t ? 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 The patient denies chest pain, palpitations, shortness of breath, dyspnea on exertion, cough, lower extremity swelling, sore throat, fevers, chills, sweats, nausea, vomiting, diarrhea , constipation, abdominal pain, pelvic pain, blood in urine or stool, dysuria, urinary frequency or urgency, lightheadedness, dizziness, headache, rash, abnormal bruising or bleeding, imbalance, focal or generalized weakness, numbness or tingling in arms or legs, generalized arthralgias or myalgias, back or neck pain, or night sweats. The review of systems is otherwise negative other than for that already noted above, and at least 10 systems have been reviewed. Physical Exam Physical Exam: The patient is awake, alert and oriented 3, well developed and well nourished, normocephalic and atraumatic, lying in bed and in no acute distress. HEENT--PERRL, EOMI, mucous membranes and oropharynx normal. Neck--supple. No JVD. No bruits. Thyroid normal, trachea midline, no adenopathy. Heart--normal S1 and S2. No murmurs, rubs or gallops. Lungs--clear bilaterally, no respiratory distress, no accessory muscle use. Abdomen--normal bowel sounds and soft. Nontender. Nondistended, no hernias or masses, no organomegaly. Extremities--no cyanosis or clubbing. No edema. There are good distal pulses b/l. Dermatologic--normal skin turgor, normal color, no abnormal lymph nodes, no rash. Neurologic--cranial nerves II through XII grossly intact. Rheumatologic--normal range of motion. Psychiatric--normal affect. Results & Data Results & Data ([facility]) Vital Signs (Past 12 Hours) Vital Signs Temp Pulse Pulse Resp BP BP Pulse Ox 10/19/20 00:01 77 23 131/96 99 10/18/20 23:30 75 24 119/76 99 10/18/20 23:10 82 20 97 10/18/20 23:00 85 29 H 96 10/18/20 22:50 85 22 94 10/18/20 22:26 95 H 21 93 10/18/20 22:00 94 H 96 H 21 97/64 L 97/64 L 96 10/18/20 21:41 96 10/18/20 21:35 97.9 F 99 H 18 105/69 94 10/18/20 21:30 95 H 22 105/69 95 Laboratory Results Laboratory Results WBC 11.32 K/uL (4.8-10.8) H 10/18/20 21: RBC 4.14 M/uL (4.2-5.4) L 10/18/20 21:33 Hgb 12.8 g/dL (12.0-16.0) 10/18/20 21:33 Hct 39.0 % (37-47) 10/18/20 21: MCV 94.2 fL (80-100) 10/18/20 21: MCH 30.9 pg (25-34) 10/18/20 21: MCHC 32.8 g/dL (32-36) 10/18/20 21: RDW Std Deviation 46.0 fL (36.4-46.3) 10/18/20 21: RDW Coeff of [place] 13.3 % (11.5-14.5) 10/18/20 21: Plt Count 180 K/uL (130-400) 10/18/20 21: MPV 10.6 fL (7.4-10.4) H 10/18/20 21: Immature Gran % (Auto) 1.1 % 10/18/20 21: Neut % (Auto) 76.2 % 10/18/20 21: Lymph % (Auto) 15.2 % 10/18/20 21: Bennett % (Auto) 6.1 % 10/18/20 21: Eos % (Auto) 1.1 % 10/18/20 21: Baso % (Auto) 0.3 % 10/18/20 21: Neut # (Auto) 8.63 K/uL (1.4-6.5) H 10/18/20 21: Lymph # (Auto) 1.72 K/uL (1.2-3.4) 10/18/20 21: Bennett # (Auto) 0.69 K/uL (0.11-0.59) H 10/18/20 21: Eos # (Auto) 0.12 K/uL (0-0.5) 10/18/20 21:33 Baso # (Auto) 0.03 K/uL (0-0.2) 10/18/20 21: Immature Gran # (Auto) 0.13 K/uL (0.00-0.02) H 10/18/20 21:33 APTT 23.4 Seconds (21.0-31.0) 10/18/20 21:33 PTT Ratio 0.9 10/18/20 21:33 Sodium 143 mmol/L (136-145) 10/18/20 21:33 Potassium 3.2 mmol/L (3.5-5.1) L 10/18/20 21:33 Chloride 116 mmol/L (98-107) H 10/18/20 21:33 Carbon Dioxide 20 mmol/L (21-32) L 10/18/20 21:33 Anion Gap 7.0 (3-11) 10/18/20 21:33 BUN 14 mg/dl (7-18) 10/18/20 21: Creatinine 0.83 mg/dl (0.6-1.2) 10/18/20 21:33 Est Cr Clr Drug Dosing 61.9 ml/min 10/18/20 21:33 Est GFR ( Amer) 81.7 ml/min 10/18/20 21:33 Est GFR (Non-Af Amer) 70.4 ml/min 10/18/20 21:33 BUN/Creatinine Ratio 17.2 (10-20) 10/18/20 21: Glucose 238 mg/dl (70-99) H 10/18/20 21: Calcium 7.6 mg/dl (8.5-10.1) L 10/18/20 21: Magnesium 1.8 mg/dl (1.8-2.4) 10/18/20 21:33 Total Bilirubin 0.3 mg/dl (0.2-1) 10/18/20 21:33 AST 34 U/L (15-37) 10/18/20 21:33 ALT 29 U/L (12-78) 10/18/20 21:33 Alkaline Phosphatase 57 U/L (45-117) 10/18/20 21:33 Troponin I 0.045 ng/ml (0-0.045) 10/18/20 21:33 Total Protein 6.4 gm/dl (6.4-8.2) 10/18/20 21:33 Albumin 3.2 gm/dl (3.4-5.0) L 10/18/20 21:33 Globulin 3.2 gm/dl (2.5-4.0) 10/18/20 21:33 Albumin/Globulin Ratio 1.0 (0.9-2) 10/18/20 21:33 Lipase 110 U/L (73-393) 10/18/20 21:33 Specimen Hemolysis 10/18/20 21:33 COVID-19 Eval Order Covid19 at [facility] 10/18/20 22:39 SARS-CoV-2 (PCR) NEGATIVE (Negative) 10/18/20 22:39 Impressions Chest X-Ray 10/18/20 21:17 XR chest 1V portable HISTORY: 70 years-old Female Chest Pain acute atypical chest pain COMPARISON: Chest radiograph 12/03/2016 TECHNIQUE: Portable AP view of the chest FINDINGS: Cardiac silhouette is enlarged. Prior median sternotomy. Mild left greater than right bibasilar opacities. Mild chronic interstitial coarsening. No pneumothorax, large pleural effusion or overt pulmonary edema. Bones appear grossly intact. IMPRESSION: 1. Cardiomegaly without overt pulmonary edema. 2. Mild left greater than right bibasilar opacities suggestive of atelectasis versus pneumonitis. ACT 112: Negative or not required by law. The above report was generated using voice recognition software. It may contain grammatical, syntax or spelling errors. Electronically signed by: Patricio Belle M.D. 10/18/2020 9:46 PM Chest CTA 10/18/20 21:53 CT angio chest PE protocol CT DOSE: 436.29 mGy.cm HISTORY: 70 years-old Female with PE. Acute shortness of breath with left- sided chest pain TECHNIQUE: Multiple CTA images of the chest were obtained after the intravenous administration of 120 ml Optiray. Coronal and sagittal MIPS were obtained from the axial data set and were submitted for review. All measurements were obtained according to NASCET criteria. A dose lowering technique was utilized adhering to the principles of ALARA. COMPARISON: Chest radiograph of same day FINDINGS: CTA: The heart is upper limits of normal in size. Prior median sternotomy. Mild coronary artery calcifications. Moderate atherosclerosis of the thoracic aorta without aneurysm. No dissection. 1.5 cm saccular outpouching involves the left ventricular apex. The segmental and subsegmental branches of the pulmonary arterial tree are suboptimally evaluated secondary to respiratory motion. No pulmonary emboli identified. CT CHEST: Heterogeneity with mild nodularity of the thyroid. No adenopathy. No pneumothorax, pleural effusion or overt pulmonary edema. Linear subsegmental dependent bibasilar consolidative opacities. Central airways are patent. Mild nonspecific wall thickening of the distal esophagus. Unremarkable soft tissues. Angulated fractures of the anterior left second and third ribs with mild sclerosis of the anterior left fourth and fifth ribs. IMPRESSION: 1. No pulmonary emboli. 2. Mild bibasilar opacities suggestive of atelectasis. 3. 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 4. Angulated fractures of the anterior left third and fourth ribs with mild sclerosis of the anterior left fourth and fifth ribs. These fractures are favored to be subacute or chronic however should be correlated with point tenderness. 5. No pneumothorax. ACT 112: Negative or not required by law. The above report was generated using voice recognition software. It may contain grammatical, syntax or spelling errors. Electronically signed by: Patricio Belle M.D. 10/18/2020 10:36 PM Ankle X-Ray 10/18/20 22:44 XR ankle RT min 3V routine HISTORY: 70 years-old Female r ankle pain acute pain and swelling of the right ankle COMPARISON: None TECHNIQUE: 3 views of the right ankle FINDINGS: Moderate circumferential soft tissue swelling. There is an acute nondisplaced transverse fracture involving the lateral malleolus. Small joint effusion. Spurring of the calcaneus. Demineralized appearance the bones with mild multifo ara osteoarthritis. IMPRESSION: Acute nondisplaced fracture of the lateral malleolus. ACT 112: Negative or not required by law. The above report was generated using voice recognition software. It may contain grammatical, syntax or spelling errors. Electronically signed by: Patricio Belle M.D. 10/18/2020 11:04 PM ECG Additional Comments: CURT HARMON ID:[id number] 18-OCT-2020 21:20:21 [facility]- EDSTAT ROUTINE RETRIEVAL Sinus rhythm with occasional Premature ventricular complexes RSR' or QR pattern in V1 suggests right ventricular conduction delay Septal infarct , age undetermined ST & T wave abnormality, consider inferior ischemia ST & T wave abnormality, consider anterolateral ischemia Prolonged QT Abnormal ECG When compared with ECG of 03-DEC-2016 13:55, Significant changes have occurred 25mm/s 10mm/mV 150Hz 9.0.9 12SL 241 ANGLE: 13 Unconfirmed Vent. rate 97 BPM NE interval 182 ms QRS duration 114 ms QT/QTc 408/518 ms P-R-T axes 73 29 211 1950 (70 yr) Female 1in 1lb Room: Code Status & VTE Plan Code Status Full code VTE Prophylaxis Plan VTE Prophylaxis will be ordered: Yes PG Care Time/CCT Total # of Minutes Spent Total Time Spent with Patient: Total time spent is greater than 50% in coordination of care (as documented) at patient's floor/unit and/or counseling patient: Coding Level of Care Code 69002 Initial Inpt Care Lvl 3 Diagnoses Left ventricular aneurysm I25.3 Cardiac arrest I46.9 Rib fractures S22.49XA Ankle fracture S82.891A Encounter type: initial encounter Fracture type: closed Laterality: right Acute hypokalemia E87.6 Vascular dementia without behavioral disturbance F01.50 Dyslipidemia E78.5 Asthma J45.909 Aortic stenosis, mild I35.0 Depression with anxiety F41.8 GERD (gastroesophageal reflux disease) K21.9 (1) Ankle fracture Encounter type: initial encounter Fracture type: closed Laterality: right Qualified Code(s): S82.891A - Other fracture of right lower leg, initial encounter for closed fracture
[2020-10-19] MEDS: HEPARIN SODIUM/DEXTROSE 25,000 UNITS/500 ML BAG IV SCH (01:03)
--- NOTE | 2020-10-19 01:18 | Critical Care Consultation ---
Date of Consultation October 19, 2020 Assessment & Plan (1) Cardiac arrest: Impression: 70-year-old female presents to the ICU following in field cardiac arrest x2 which ROSC was achieved with CPR only. 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 slitter scorer consulted and plan for patient to undergo medical management with heparin drip overnight with plans for cardiac catheterization in the morning. If patient were to decompensate will go for emergent catheterization. Patient admitted to ICU for close monitoring and management. Neuro - [facility] ICU: Negative Vascular dementia without behavioral disturbancespatient appears to be at baseline mental status. No evidence of anoxic injury following cardiac arrest -CT head without acute intracranial finding -Migrainescontinue Topamax -Anxiety and depressioncontinue citalopram Cardiac - Cardiac arrestas described in HPI, patient underwent CPR for 2 cardiac arrest in which ROSC was achieved at approximately 2 minutes each time. Unknown underlying dysrhythmia. Patient did not receive epi or shock -CTA chest revealed 1.5 cm saccular aneurysms of the left ventricular apex -Interventional cardiology stat consulted. Recommended heparin drip with plan for cardiac cath this a.m. if patient remains hemodynamically stable. If patient were to decompensate will undergo emergent cardiac cath -Troponin 0 0.45. EKG with sinus rhythm, PVCs, ST depressions in inferior leads and lateral lead with T wave inversion. Slight ST segment elevation in V1 and V2. Prolonged QTC -ST depressions worse in the lateral leads compared to previous study. No active chest pain -Trend troponin -Continue heparin drip -Continuous monitor on telemetry -Follow-up cardiology recommendations HTNhold lisinopril following contrast HLDcontinue Lipitor Respiratory - Currently maintaining oxygen saturations on room air without respiratory distress. Lungs clear to auscultation and symmetrical chest wall movement -CTA chest without PE, mild bibasilar opacities. No pneumothorax. Angulated fractures anterior left third and fourth ribs with mild sclerosis of the anterior left fourth and fifth ribs -Continuous monitoring pulse ox -History of asthmacontinue Brio Ellipta, DuoNeb as needed GI - N.p.o. GERDfamotidine RENAL/LYTES - Creatinine within normal limits -Patient with hypokalemia and hypomagnesemia. Repleting -Monitor BMPs and replete electrolytes as indicated - Strict I's and O's ENDO - No history of diabetes or thyroid disease HEME - H&H stable, monitor routine CBCs ID - No indication for infectious process at this time LINES/IV ACCESS - Peripheral IVs DVT PROPHYLAXIS - SCDs, heparin drip Thank you for allowing us to participate in the care of this patient. Please refer to my attending physician's documentation for any further recommendations. (2) Left ventricular aneurysm: (3) Ankle fracture: (4) Abnormal EKG: (5) Acute hypokalemia: (6) Vascular dementia without behavioral disturbance: (7) Osteoporosis: (8) Gait disturbance: (9) Dyslipidemia: (10) Chronic cerebral ischemia: (11) Cerebral amyloid angiopathy: (12) Asthma: (13) GERD (gastroesophageal reflux disease): (14) Depression with anxiety: (15) Stumbling gait: (16) Lumbar facet joint syndrome: (17) Hypertension: (18) Dysphagia: (19) Essential tremor: (20) Aortic stenosis, mild: (21) Rib fractures: Supervising Physician Co-Signing Physician Notes I have personally evaluated and examined this patient. I agree with assessment and plan of Cathy REDDY. Plan to undergo cardiac catheterization Wednesday History of Present Illness History of Present Illness Ms. Jacobson is a 70-year-old female with past medical history including dyslipidemia, GERD, depression with anxiety, HTN, lumbar facet joint syndrome, gait disturbances and cerebral amyloid angiopathy who presented to the emergency department following cardiac arrest x2. Patient was eating dinner with her in her usual state of health earlier this evening and went to the bathroom. The patient's reportedly found her down and she was unresponsive and did not appear to be breathing. He called 911 and started CPR and the patient was resuscitated. Patient again became unresponsive and pulseless when EMS arrived and CPR was given for 2 minutes. Patient did not receive epinephrine or shocks during this event and she was resuscitated again with CPR. Patient was not on a monitor and storage bin tender at this time and underlying rhythm is unknown. On arrival to the ER the patient was oriented with mild confusion. She was otherwise hemodynamically stable and appropriate. She complained of pain in her right ankle and x-ray revealed acute nondisplaced transverse fracture involving the lateral malleolus. 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 slitter scorer was contacted and recommended starting the patient on heparin drip and plan for patient to undergo cardiac cath in the a.m. CT the head negative for acute intracranial findings she is started on heparin drip. On evaluation, the patient is alert and oriented and is able to recall events from earlier the night and discussions with providers. She is hemodynamically stable without vasopressors and appears comfortable on nasal cannula and is maintaining oxygen saturation without respiratory distress. She reports some sternal chest pain associated with deep breathing. She denies any other symptoms of chest pain or palpitations. She denies headache, dizziness, fevers or recent illness, cough, shortness of breath, abdominal pain, nausea vomiting or diarrhea. She does report pain and swelling to the right ankle which is new tonight, for which x-ray revealed transverse fracture. She otherwise reports feeling mostly in her normal state of health. Patient to be admitted to the ICU for further monitoring and medical management at this time with plans to undergo cardiac catheterization this morning. Allergies Allergy/AdvReac Type Severity Reaction Status Date / Time aspirin Allergy Mild makes her Verified 10/18/20 22:29 sick Sulfa (Sulfonamide Allergy Unknown Unknown rxn Verified 10/18/20 22:29 Antibiotics) metoprolol AdvReac Intermediate makes her Verified 10/18/20 22:29 sick Home Medications Medication Instructions Recorded Confirmed Type alendronate 70 mg tablet 70 mg PO WEEKLY #12 tab 08/05/20 10/18/20 Rx celecoxib 200 mg capsule 200 mg PO QAM 08/07/20 10/18/20 History cholecalciferol (vitamin D3) 50 50 mcg PO QPM 08/07/20 10/18/20 History mcg (2,000 unit) capsule citalopram 40 mg tablet 40 mg PO QPM 08/07/20 10/18/20 History cyanocobalamin (vitamin B-12) 1,000 mcg PO QPM 08/07/20 10/18/20 History 1,000 mcg tablet (Vitamin B-12) fluticasone furoate 100 1 puffs INH QAM PRN 08/07/20 10/18/20 History mcg-vilanterol 25 mcg/dose inhalation powder (Breo Ellipta) multivitamin 1 tab PO QPM 08/07/20 10/18/20 History pantoprazole 40 mg tablet,delayed 40 mg PO DAILY #30 tab 08/21/20 10/18/20 Rx release (Protonix) lisinopril 5 mg tablet 5 mg PO QAM #90 tab 09/04/20 10/18/20 Rx oxybutynin chloride 15 mg 15 mg PO QAM #90 tab 10/15/20 10/18/20 Rx tablet,extended release 24 hr topiramate 25 mg tablet 25 mg PO BID 10/18/20 10/18/20 History Patient History Medical History Arrhythmia "skips a beat", old, nothing new Asymptomatic menopausal state Bronchitis Cataract Depression with anxiety Distal radius fracture Right Erosive gastropathy Esophageal abnormality tortuous esophagus Forgetfulness Hiatal hernia History of esophageal dilatation History of urinary urgency Hypertension Inflamed acrochordon Lumbar facet joint syndrome Orthostatic hypotension Osteoarthritis Stumbling gait BLE weakness Transient ischemic attack (TIA) >5 years ago, [facility] Urinary incontinence Urinary tract infection hx Surgical History H/O section X 2 History of cataract surgery History of esophagogastroduodenoscopy (EGD) 08/08/20 [place] History of heart surgery at 13 years old, open heart d/t ? 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 Feels Safe at Home: Yes Safety Concerns: Feels Safe At This Time Childhood Exposure to Second-Hand Smoke: Yes caffeine: Yes Dental Care, Regularly: No Physical Activity Frequency: 3-4 Times per Week Seatbelt Use: always Sunscreen Use: No Assistive Devices: Brace/Splint/Immobilizer Review of Systems Review of Systems: All systems reviewed & are unremarkable except as noted in HPI & below Physical Exam Constitutional: WD/WN, vitals as above cooperative and comfortable Eyes: PERRL, conjunctivae normal, anicteric sclerae ENMT: external ear and nose normal, oropharynx normal Neck: trachea midline, no thyromegaly Respiratory: normal respiratory effort, lungs clear to auscultation Metrical chest wall movement Cardiovascular: RRR, no murmur, no edema Heart Sounds: normal S1 and normal S2 Extremities: normal capillary refill; no edema Gastrointestinal (Abdomen): normal bowel sounds, soft, nontender, no hepatosplenomegaly Musculoskeletal: Tenderness and swelling noted over the right lateral malleolus. Anterior chest wall is also tender to palpation. Neurologic: PERRL, EOMI, accommodation nl, no face palsy, no dysarthria Psychiatric: A+Ox3, euthymic affect Results & Data Results & Data ([facility]) Vital Signs (Past 12 Hours) Vital Signs Temp Pulse Pulse Resp BP BP Pulse Ox 10/19/20 01:00 72 21 133/82 96 10/19/20 00:30 72 15 135/76 97 10/19/20 00:01 77 23 131/96 99 10/18/20 23:30 75 24 119/76 99 10/18/20 23:10 82 20 97 10/18/20 23:00 85 29 H 96 10/18/20 22:50 85 22 94 10/18/20 22:26 95 H 21 93 10/18/20 22:00 94 H 96 H 21 97/64 L 97/64 L 96 10/18/20 21:41 96 10/18/20 21:35 36.6 C 99 H 18 105/69 94 10/18/20 21:30 95 H 22 105/69 95 Coding Level of Care Code 29103 Inpt Consult Level 3 Diagnoses Ankle fracture S82.891A Encounter type: initial encounter Fracture type: closed Laterality: right Cardiac arrest I46.9 Abnormal EKG R94.31 Acute hypokalemia E87.6 Vascular dementia without behavioral disturbance F01.50 Osteoporosis M81.0 Gait disturbance R26.9 Dyslipidemia E78.5 Chronic cerebral ischemia I67.82 Cerebral amyloid angiopathy E85.4; I68.0 Asthma J45.909 GERD (gastroesophageal reflux disease) K21.9 Depression with anxiety F41.8 Stumbling gait R26.0 Lumbar facet joint syndrome M47.816 Hypertension I10 Dysphagia R13.10 Essential tremor G25.0 Aortic stenosis, mild I35.0 Rib fractures S22.49XA Left ventricular aneurysm I25.3 (1) Ankle fracture Encounter type: initial encounter Fracture type: closed Laterality: right Qualified Code(s): S82.891A - Other fracture of right lower leg, initial encounter for closed fracture
[2020-10-19] MEDS ORDERED: ALBUT/IPRATROP 3MG/0.5MG NEB 3 ML VIAL INH PRN (02:22)
[2020-10-19] MEDS ORDERED: ICU PROTOCOL FOR HYPERGLYCEMIA PRN (02:22)
[2020-10-19] MEDS ORDERED: FLUTICASONE/VILANTEROL 100/25MCG 14 PUFFS/INHALER INH PRN (02:22)
[2020-10-19 03:02] LABS: Basophils # (auto) 0.01 K/uL (0-0.2); Basophils % (auto) 0.1 %; Eosinophils # (auto) 0.03 K/uL (0-0.5); Eosinophils % (auto) 0.3 %; Hematocrit (blood only) 37.5 % (37-47); Hemoglobin 12.4 g/dL (12.0-16.0); Immature Granulocytes # (auto) 0.05 K/uL (0.00-0.02); Immature Granulocytes % (auto) 0.4 %; Lymphocytes # (auto) 1.53 K/uL (1.2-3.4); Lymphocytes % (auto) 13.2 %; Mean Corpuscular Hemoglobin 31.2 pg (25-34); Mean Corpuscular Hgb Conc 33.1 g/dL (32-36); Mean Corpuscular Volume 94.5 fL (80-100); Mean Platelet Volume 10.2 fL (7.4-10.4); Monocytes # (auto) 0.63 K/uL (0.11-0.59); Monocytes % (auto) 5.4 %; Neutrophils # (auto) 9.37 K/uL (1.4-6.5); Neutrophils % (auto) 80.6 %; Platelet Count 208 K/uL (130-400); RDW Coefficient of Variation 13.3 % (11.5-14.5); Red Blood Count 3.97 M/uL (4.2-5.4); White Blood Count 11.62 K/uL (4.8-10.8)
[2020-10-19] MEDS: POTASSIUM CHLORIDE / WTR 10 MEQ/100 ML PLCT IV SCH ×2 (03:12→04:14)
[2020-10-19] MEDS: MAGNESIUM SULFATE / D5W 1 GM/100 ML BAG IV SCH ×2 (03:13→05:12)
[2020-10-19] MEDS: NSS + 20MEQ KCL 20 MEQ/1,000 ML BAG IV SCH ×2 (03:18→17:09)
[2020-10-19] MEDS: TOPIRAMATE 25 MG TAB PO SCH ×3 (03:18→20:02)
[2020-10-19 03:23] LABS: Prothrombin Time 10.3 Seconds (9.0-12.0)
[2020-10-19 03:25] LABS: Albumin Level 3.1 gm/dl (3.4-5.0); BUN Creatinine Ratio 17.7 (10-20); Calcium 8.1 mg/dl (8.5-10.1); Est GFR (African American) 80.5 ml/min; Est GFR (Non-African American) 69.4 ml/min; Potassium 4.4 mmol/L (3.5-5.1)
[2020-10-19 03:33] LABS: Albumin Globulin Ratio 0.9 (0.9-2); Bilirubin,Total 0.3 mg/dl (0.2-1); Globulin 3.4 gm/dl (2.5-4.0); Total Protein 6.5 gm/dl (6.4-8.2); Troponin I 0.6 ng/ml (0-0.045)
[2020-10-19] MEDS ORDERED: CALCIUM CHLORIDE 10% 1,000 MG in SODIUM CHLORIDE 0.9% 50 ML IV STA (05:59)
[2020-10-19 06:00] LABS: Magnesium 2.6 mg/dl (1.8-2.4); Phosphorus 1.9 mg/dl (2.5-4.9)
--- NOTE | 2020-10-19 07:04 | Hospitalist Progress Note ---
Date of Service October 19, 2020 Assessment & Plan (1) Cardiac arrest: Plan: This is a 70-year-old female with a notable past medical history of hypertension, hyperlipidemia, vascular dementia, anxiety, depression, asthma, migraines who presented to [facility] following cardiac arrest in the field with subsequent ROSC x2. Upon her arrival here, chest imaging demonstrated a large, left ventricular saccular aneurysm. She currently remains in the ICU for intensive hemodynamic monitoring. Cardiac Arrest, s/p ROSC | Left Ventricular Aneurysm (1.5cm) * s/p CPR x 2 in the field with achievement of ROSC (did not receive shock or epi, amio) -- Unknown underlying rhythm that prompted this. ?Malignant arrhythmia vs. profound bradycardia from vagal, HoTN --> PEA? * Has not required pressure or respiratory support * ECG demonstrating ST-depressions in the inferior leads with mildly elevated troponins - will trend * Interventional cardiology consulted upon arrival: anticipate catheterization Wednesday * Continue heparin gtt for now; patient will likely require chronic anticoagulation given risk for thrombus formation * Consider loop recorder prior to discharge * Already initiated on Toprol XL 25 daily * Hold on ACEI until s/p catheterization * Continue atorvastatin (new) * F/U Echocardiogram * Lipids, A1c as below. RIGHT Ankle Fracture * Closed right ankle fracture involving the RIGHT lateral malleolus * Ortho consulted, following: recommend WBAT with boot; elevate and ice - F/U in 7-10 days after discharge * Will check vitamin D level in morning * Consider DEXA as outpatient if not already done Rib Fractures * Appreciated on admission imaging * Suspect acute component s/p CPR, possibly chronic as well * No acute needs. Analgesia prn. Hypokalemia * Appreciated on admission, s/p repletion * Demonstrating normalcy this AM - continue ICU repletion protocol Vascular Dementia, Anxiety, Depression * No acute needs at this time * Continue home Celexa and TopoMax HLD * Continue atorvastatin 80 (new to this admission) * Lipid profile: TG 153, TC 178, LDL 112, HDL 35 HTN * Hold ACEI for now until catheterization Asthma * No acute needs. Stable respiratory status, no O2 requirement * Continue home Breo Mild * Noted. F/U echocardiogram results. GERD * Continue Protonix Code: FULL CODE Dispo: ICU Diet: HH, mIVF PPX: Hep gtt, Famotidine (2) Left ventricular aneurysm: (3) Ankle fracture: (4) Abnormal EKG: (5) Acute hypokalemia: (6) Vascular dementia without behavioral disturbance: (7) Osteoporosis: (8) Gait disturbance: (9) Dyslipidemia: (10) Chronic cerebral ischemia: (11) Cerebral amyloid angiopathy: (12) Asthma: (13) GERD (gastroesophageal reflux disease): (14) Depression with anxiety: (15) Stumbling gait: (16) Lumbar facet joint syndrome: (17) Hypertension: (18) Dysphagia: (19) Essential tremor: (20) Aortic stenosis, mild: (21) Rib fractures: Admission and Anticipated Discharge Date Admission Date: October 19, 2020 Supervising Physician Co-Signing Physician Notes Attending Attestation & progress note: Pt seen/examined, chart reviewed, care plan d/w resident Dr Andi Estes. I agree w/ the carcamo components of his documentation. since admission tele has remained stable. c/o left-sided rib pain worse with deep breaths. no substernal pain. she recalls that just prior to the cardiac arrest she had been trying to eat a hamburger and it "got stuck." (she points to the left anterior neck) she apparently was coughing and made her way to the bathroom. she thought she was going to vomit. once in the bathroom she had the syncope. swallowing difficulty present for several months. no recent chest pains or dyspnea. VSS although BPs are elevated, afebrile gen - NAD heart - RRR, s1 s2, 2/6 systolic murmur RUSB lungs - CTA b/l neck - nodular goiter b/l, nontender, no enlarged lymph nodes mouth - MMM, no lesions abd - soft NT ND BS+ chest - reproducible chest wall tenderness on left ext - no edema labs reviewed echo reviewed A/P: 1. cardiac arrest s/p CPR with ROSC -- etiology?? when AED was applied at her home no shockable rhythm identified [id number] will have left heart cath. if normal - dia recorder implantation to r/o dysrhythmia? could she have had an hypoxic event with vasovagal physiology in the setting of choking on a hamburger?? cont heparin in the event this was an ischemic event. 2. dysphagia for solids - soft tissue neck CT, r/o substernal goiter, r/o mass lesions, etc speech eval. 3. elevated troponin - mild ACS? or, was troponin leak simply from the cardiac arrest itself? appreciate cardiology consult. 4. LV aneurysm - oral anticoagulation at discharge?? 5. right ankle fracture - conservative Rx for now. Carroll Ocampo MD Subjective NAEO. Feels pretty good overall this morning. She does endorse significant chest pain along the left anterior rib cage - extremely TTP. Any touch prompts pain. When not moving, under control. Breathing feels fine. No SOB. No cough. No n/v/d. Eager for cath. On review of the events yesterday, she does remember much, but does say that she had chest pain all day. She said that it was primarily lateral to the sternum in the leftward direction; this was very unusual for her. She denied any shortness of breath. Interestingly, she did say that it was exquisitely tender to palpation at that time too. Review of Systems Review of Systems: As per HPI Physical Exam Physical Exam: General: Well appearing 70yoF is lying back in hospital bed, relaxed upon my arrival. She converses freely and is in no acute distress. HEENT: NCAT. Eyes - Sclera are white, anicteric, and without injection. Mouth - MMM with no tonsillar edema or exudates. Cardiac: Normal rate and regular rhythm; S1 and S2 present with 1 out of 6 systolic ejection murmur best heard over the right upper sternal border, otherwise no rubs or gallops. No significant JVD, no peripheral edema. Pulmonary: Good respiratory effort with symmetric expansion of the chest. No use of accessory muscles. Lungs were clear to auscultation bilaterally with no crackles or wheezes. Abdominal: Abdomen was soft, nondistended, and non-tender to palpation. Extremities: Upper and lower extremities are warm and well perfused. Right foot in boot. Tenderness to palpation observed along the lateral malleolus. Strength is 4-5 on right, 5 out of 5 on the left at the ankle. Sensation intact. Psych: Well-developed, well-nourished, appropriately dressed for occasion. Behavior is cooperative and appropriate. Affect is WNL. Insight is appropriate. Results & Data Results & Data ([facility]) Vital Signs (Past 12 Hours) Vital Signs Temp Pulse Pulse Resp BP BP Pulse Ox 10/19/20 06:00 67 17 161/95 H 96 10/19/20 05:00 67 17 151/90 H 95 10/19/20 04:00 69 17 166/90 H 95 10/19/20 03:54 166/98 H 10/19/20 03:39 69 18 154/102 H 96 10/19/20 02:25 69 10/19/20 01:56 37.3 C 72 18 144/79 H 96 10/19/20 01:30 76 17 151/87 H 94 10/19/20 01:29 37.2 C 20 95 10/19/20 01:00 72 21 133/82 96 10/19/20 00:30 72 15 135/76 97 10/19/20 00:01 77 23 131/96 99 10/18/20 23:30 75 24 119/76 99 10/18/20 23:10 82 20 97 10/18/20 23:00 85 29 H 96 10/18/20 22:50 85 22 94 10/18/20 22:26 95 H 21 93 10/18/20 22:00 94 H 96 H 21 97/64 L 97/64 L 96 10/18/20 21:41 96 10/18/20 21:35 36.6 C 99 H 18 105/69 94 10/18/20 21:30 95 H 22 105/69 95 Laboratory Results Laboratory Results - last 24 hr 10/18/20 10/18/20 10/18/20 21:33 21:33 21:33 WBC 11.32 H RBC 4.14 L Hgb 12.8 Hct 39.0 MCV 94.2 MCH 30.9 MCHC 32.8 RDW Std Deviation 46.0 RDW Coeff of [place] 13.3 Plt Count 180 MPV 10.6 H Immature Gran % (Auto) 1.1 Neut % (Auto) 76.2 Lymph % (Auto) 15.2 Centre % (Auto) 6.1 Eos % (Auto) 1.1 Baso % (Auto) 0.3 Neut # (Auto) 8.63 H Lymph # (Auto) 1.72 Centre # (Auto) 0.69 H Eos # (Auto) 0.12 Baso # (Auto) 0.03 Immature Gran # (Auto) 0.13 H PT INR APTT 23.4 PTT Ratio 0.9 Sodium 143 Potassium 3.2 L Chloride 116 H Carbon Dioxide 20 L Anion Gap 7.0 BUN 14 Creatinine 0.83 Est Cr Clr Drug Dosing 61.9 Est GFR ( Amer) 81.7 Est GFR (Non-Af Amer) 70.4 BUN/Creatinine Ratio 17.2 Glucose 238 H POC Glucose Estimat Average Glucose Hemoglobin A1c Calcium 7.6 L Ionized Calcium Phosphorus Magnesium 1.8 Total Bilirubin 0.3 AST 34 ALT 29 Alkaline Phosphatase 57 Troponin I 0.045 Total Protein 6.4 Albumin 3.2 L Globulin 3.2 Albumin/Globulin Ratio 1.0 Triglycerides Cholesterol LDL Cholesterol, Calc VLDL Cholesterol, Calc HDL Cholesterol Cholesterol/HDL Ratio Lipase 110 Specimen Hemolysis Nasal Screen MRSA (PCR) COVID-19 Eval Order SARS-CoV-2 (PCR) 10/18/20 10/18/20 10/19/20 22:39 22:39 02:22 WBC RBC Hgb Hct MCV MCH MCHC RDW Std Deviation RDW Coeff of [place] Plt Count MPV Immature Gran % (Auto) Neut % (Auto) Lymph % (Auto) Centre % (Auto) Eos % (Auto) Baso % (Auto) Neut # (Auto) Lymph # (Auto) Centre # (Auto) Eos # (Auto) Baso # (Auto) Immature Gran # (Auto) PT INR APTT PTT Ratio Sodium Potassium Chloride Carbon Dioxide Anion Gap BUN Creatinine Est Cr Clr Drug Dosing Est GFR ( Amer) Est GFR (Non-Af Amer) BUN/Creatinine Ratio Glucose POC Glucose Estimat Average Glucose Hemoglobin A1c Calcium Ionized Calcium Phosphorus Magnesium Total Bilirubin AST ALT Alkaline Phosphatase Troponin I Total Protein Albumin Globulin Albumin/Globulin Ratio Triglycerides Cholesterol LDL Cholesterol, Calc VLDL Cholesterol, Calc HDL Cholesterol Cholesterol/HDL Ratio Lipase Specimen Hemolysis Nasal Screen MRSA (PCR) Negative COVID-19 Eval Order Covid19 at [facility] SARS-CoV-2 (PCR) NEGATIVE 10/19/20 10/19/20 10/19/20 02:52 02:52 02:52 WBC 11.62 H RBC 3.97 L Hgb 12.4 Hct 37.5 MCV 94.5 MCH 31.2 MCHC 33.1 RDW Std Deviation 46.0 RDW Coeff of [place] 13.3 Plt Count 208 MPV 10.2 Immature Gran % (Auto) 0.4 Neut % (Auto) 80.6 Lymph % (Auto) 13.2 Centre % (Auto) 5.4 Eos % (Auto) 0.3 Baso % (Auto) 0.1 Neut # (Auto) 9.37 H Lymph # (Auto) 1.53 Centre # (Auto) 0.63 H Eos # (Auto) 0.03 Baso # (Auto) 0.01 Immature Gran # (Auto) 0.05 H PT 10.3 INR 1.0 APTT PTT Ratio Sodium 141 Potassium 4.4 D Chloride 114 H Carbon Dioxide 25 Anion Gap 2.0 L BUN 15 Creatinine 0.84 Est Cr Clr Drug Dosing 61.0 Est GFR ( Amer) 80.5 Est GFR (Non-Af Amer) 69.4 BUN/Creatinine Ratio 17.7 Glucose 153 H POC Glucose Estimat Average Glucose Hemoglobin A1c Calcium 8.1 L Ionized Calcium Phosphorus Magnesium Total Bilirubin 0.3 AST 29 ALT 28 Alkaline Phosphatase 54 Troponin I 0.600 H* Total Protein 6.5 Albumin 3.1 L Globulin 3.4 Albumin/Globulin Ratio 0.9 Triglycerides 153 H Cholesterol 178 LDL Cholesterol, Calc 112 VLDL Cholesterol, Calc 31 HDL Cholesterol 35 Cholesterol/HDL Ratio 5 Lipase Specimen Hemolysis Nasal Screen MRSA (PCR) COVID-19 Eval Order SARS-CoV-2 (PCR) 10/19/20 10/19/20 10/19/20 02:52 05:10 05:18 WBC RBC Hgb Hct MCV MCH MCHC RDW Std Deviation RDW Coeff of [place] Plt Count MPV Immature Gran % (Auto) Neut % (Auto) Lymph % (Auto) Centre % (Auto) Eos % (Auto) Baso % (Auto) Neut # (Auto) Lymph # (Auto) Centre # (Auto) Eos # (Auto) Baso # (Auto) Immature Gran # (Auto) PT INR APTT PTT Ratio Sodium Potassium Chloride Carbon Dioxide Anion Gap BUN Creatinine Est Cr Clr Drug Dosing Est GFR ( Amer) Est GFR (Non-Af Amer) BUN/Creatinine Ratio Glucose POC Glucose 136 H Estimat Average Glucose 114 Hemoglobin A1c 5.6 Calcium Ionized Calcium Phosphorus 1.9 L Magnesium 2.6 H Total Bilirubin AST ALT Alkaline Phosphatase Troponin I Total Protein Albumin Globulin Albumin/Globulin Ratio Triglycerides Cholesterol LDL Cholesterol, Calc VLDL Cholesterol, Calc HDL Cholesterol Cholesterol/HDL Ratio Lipase Specimen Hemolysis Nasal Screen MRSA (PCR) COVID-19 Eval Order SARS-CoV-2 (PCR) 07/10/19/20 10/19/20 05:25 05:25 06:59 WBC RBC Hgb Hct MCV MCH MCHC RDW Std Deviation RDW Coeff of [place] Plt Count MPV Immature Gran % (Auto) Neut % (Auto) Lymph % (Auto) Centre % (Auto) Eos % (Auto) Baso % (Auto) Neut # (Auto) Lymph # (Auto) Centre # (Auto) Eos # (Auto) Baso # (Auto) Immature Gran # (Auto) PT INR APTT 47.4 H* PTT Ratio 1.8 Sodium Potassium Chloride Carbon Dioxide Anion Gap BUN Creatinine Est Cr Clr Drug Dosing Est GFR ( Amer) Est GFR (Non-Af Amer) BUN/Creatinine Ratio Glucose POC Glucose Estimat Average Glucose Hemoglobin A1c Calcium Ionized Calcium 1.11 L Phosphorus Magnesium Cancelled Total Bilirubin AST ALT Alkaline Phosphatase Troponin I Total Protein Albumin Globulin Albumin/Globulin Ratio Triglycerides Cholesterol LDL Cholesterol, Calc VLDL Cholesterol, Calc HDL Cholesterol Cholesterol/HDL Ratio Lipase Specimen Hemolysis Nasal Screen MRSA (PCR) COVID-19 Eval Order SARS-CoV-2 (PCR) 10/19/20 10/19/20 10:17 18:41 WBC RBC Hgb Hct MCV MCH MCHC RDW Std Deviation RDW Coeff of [place] Plt Count MPV Immature Gran % (Auto) Neut % (Auto) Lymph % (Auto) Centre % (Auto) Eos % (Auto) Baso % (Auto) Neut # (Auto) Lymph # (Auto) Centre # (Auto) Eos # (Auto) Baso # (Auto) Immature Gran # (Auto) PT INR APTT PTT Ratio Sodium Potassium Chloride Carbon Dioxide Anion Gap BUN Creatinine Est Cr Clr Drug Dosing Est GFR ( Amer) Est GFR (Non-Af Amer) BUN/Creatinine Ratio Glucose POC Glucose Estimat Average Glucose Hemoglobin A1c Calcium Ionized Calcium Phosphorus Magnesium Total Bilirubin AST ALT Alkaline Phosphatase Troponin I 0.421 H* 0.251 H* Total Protein Albumin Globulin Albumin/Globulin Ratio Triglycerides Cholesterol LDL Cholesterol, Calc VLDL Cholesterol, Calc HDL Cholesterol Cholesterol/HDL Ratio Lipase Specimen Hemolysis Nasal Screen MRSA (PCR) COVID-19 Eval Order SARS-CoV-2 (PCR) Resident Activity Tracking Resident Involvement: Resident Care Provided Care Provided: Adult Hospital Medicine (1) Ankle fracture Encounter type: initial encounter Fracture type: closed Laterality: right Qualified Code(s): S82.891A - Other fracture of right lower leg, initial encounter for closed fracture
[2020-10-19 07:07] LABS: Estimated Average Glucose 114 mg/dl; Hemoglobin A1C 5.6 % (4.5-5.6)
[2020-10-19] MEDS: PANTOprazole 40 MG TAB PO SCH (07:29)
[2020-10-19] MEDS: ATORVASTATIN 40 MG TAB PO SCH (07:29)
[2020-10-19 07:30] LABS: Partial Thromboplastin Ratio 1.8
[2020-10-19] MEDS: lisinopril 5 MG TAB PO SCH (07:30)
[2020-10-19] MEDS: OXYBUTYNIN CHLORIDE XL 5 MG TABCR PO SCH (07:30)
[2020-10-19 07:31] LABS: Partial Thromboplastin Time 47.4 Seconds (21.0-31.0)
--- NOTE | 2020-10-19 07:45 | Electrocardiogram Report ---
Test Reason : Blood Pressure : / mmHG Vent. Rate : 097 BPM Atrial Rate : 097 BPM P-R Int : 182 ms QRS Dur : 114 ms QT Int : 408 ms P-R-T Axes : 073 029 211 degrees QTc Int : 518 ms Sinus rhythm with occasional Premature ventricular complexes Incomplete right bundle branch block Prolonged QT Abnormal ECG When compared with ECG of 03-DEC-2016 13:55, HR has increased by [address] depression in Anterior leads more pronounced Confirmed by Paco Shaw ([id number]) on 10/19/2020 7:44:59 AM Referred By: REFERRED SELF Confirmed By:Paco Shaw
--- NOTE | 2020-10-19 07:53 | Electrocardiogram Report ---
Test Reason : Blood Pressure : / mmHG Vent. Rate : 070 BPM Atrial Rate : 070 BPM P-R Int : 176 ms QRS Dur : 118 ms QT Int : 508 ms P-R-T Axes : 065 034 012 degrees QTc Int : 548 ms Poor data quality, interpretation may be adversely affected Normal sinus rhythm Incomplete right bundle branch block Prolonged QT Abnormal ECG When compared with ECG of 18-OCT-2020 21:20, HR has decreased by 27 bpm Premature ventricular complexes are no longer Present Confirmed by Paco Shaw ([id number]) on 10/19/2020 7:53:04 AM Referred By: REFERRED SELF Confirmed By:Paco Shaw
--- NOTE | 2020-10-19 08:53 | CT Scan Report ---
CT head/brain wo con CLINICAL HISTORY: 70 years-old Female with fall. Acute head trauma TECHNIQUE: Multiple axial CT images of the head were obtained without contrast. A dose lowering tech nique was utilized adhering to the principles of ALARA. CT DOSE: 537.48 mGy.cm COMPARISON: 12/03/2016 FINDINGS: No acute intracranial hemorrhage, midline shift, intracranial mass, hydrocephalus, territorial ischem ia or abnormal extra-axial collection. Age-related involutional changes. White matter hypodensities s uggestive of chronic microvascular ischemic disease. Evaluation for subtle hemorrhage is limited seco ndary to contrast from recent CTA of the chest obtained 1 hour earlier. The calvarium is intact. The paranasal sinuses, mastoid air cells, and middle ear cavities are clear . IMPRESSION: No acute intracranial abnormality. ACT 112: Negative or not required by law. The above report was generated using voice recognition software. It may contain grammatical, syntax o r spelling errors. Electronically signed by: Patricio Belle M.D. 10/19/2020 8:52 AM
--- NOTE | 2020-10-19 10:04 | Cardiology Consultation ---
Date of Consultation October 19, 2020 Assessment & Plan (1) Cardiac arrest: Etiology and exact nature of her cardiac arrest remains unclear, however Dr. Horn's note after interview with the patient's strongly suggests that she could've had a hypoxic arrest after a choking episode. See his full consultation, no need for ICD at this time. Continue low-dose metoprolol to reduce tendency to ventricular ectopy. No evidence for substantial CAD, making ischemic arrest unlikely. Would increase activity as tolerated, work-up of various anomalies listed below could continue as outpatient, if she does well she could potentially be discharged tomorrow (from my standpoint). 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 Would be reasonable for prognostic purposes to further characterize, recommend obtaining CT angiogram at [facility] to evaluate course of vessel. If this is high risk variant, would then have discussion as to risks/benefits of repair given the patient's age and comorbidities. (3) Left ventricular aneurysm: Left ventriculogram unable to be performed. In the absence of occlusive coronary disease or evidence of transmural myocardial infarction, still suspect that this is actually a defect remaining after her ventricular septal repair. This could also be better characterized at the time of her CT angiogram at [facility]. Would not anticoagulate given absence of evidence for diminished/disturbed flow in the left ventricle. Would continue aspirin. (4) Nonocclusive coronary atherosclerosis of [place] coronary artery: Aspirin and statin. Reasonable to continue low-dose beta-henrietta as noted. (5) Long QT interval: This may be a postarrest phenomenon exacerbated by fairly high-dose citalopram. QTc is improving off citalopram, if this normalizes over time no further work-up necessary. History of Present Illness Attending Physician: Carroll Ocampo Allergies Allergy/AdvReac Type Severity Reaction Status Date / Time aspirin Allergy Mild makes her Verified 10/18/20 22:29 sick Sulfa (Sulfonamide Allergy Unknown Unknown rxn Verified 10/18/20 22:29 Antibiotics) metoprolol AdvReac Intermediate makes her Verified 10/18/20 22:29 sick Home Medications Medication Instructions Recorded Confirmed Type alendronate 70 mg tablet 70 mg PO WEEKLY #12 tab 08/05/20 10/18/20 Rx celecoxib 200 mg capsule 200 mg PO QAM 08/07/20 10/18/20 History cholecalciferol (vitamin D3) 50 50 mcg PO QPM 08/07/20 10/18/20 History mcg (2,000 unit) capsule cyanocobalamin (vitamin B-12) 1,000 mcg PO QPM 08/07/20 10/18/20 History 1,000 mcg tablet (Vitamin B-12) fluticasone furoate 100 1 puffs INH QAM PRN 08/07/20 10/18/20 History mcg-vilanterol 25 mcg/dose inhalation powder (Breo Ellipta) multivitamin 1 tab PO QPM 08/07/20 10/18/20 History pantoprazole 40 mg tablet,delayed 40 mg PO DAILY #30 tab 08/21/20 10/18/20 Rx release (Protonix) lisinopril 5 mg tablet 5 mg PO QAM #90 tab 09/04/20 10/18/20 Rx oxybutynin chloride 15 mg 15 mg PO QAM #90 tab 10/15/20 10/18/20 Rx tablet,extended release 24 hr topiramate 25 mg tablet 25 mg PO BID 10/18/20 10/18/20 History aspirin 81 mg tablet,delayed 81 mg PO DAILY #30 tab 10/24/20 Rx release atorvastatin 80 mg tablet 80 mg PO DAILY #30 tab 10/24/20 Rx metoprolol succinate 25 mg 25 mg PO DAILY #30 tab 10/24/20 Rx tablet,extended release 24 hr Patient History Medical History Arrhythmia "skips a beat", old, nothing new Asymptomatic menopausal state Bronchitis Cataract Depression with anxiety Distal radius fracture Right Erosive gastropathy Esophageal abnormality tortuous esophagus Forgetfulness Hiatal hernia History of esophageal dilatation History of urinary urgency Hypertension Inflamed acrochordon Lumbar facet joint syndrome Orthostatic hypotension Osteoarthritis Stumbling gait BLE weakness Transient ischemic attack (TIA) >5 years ago, [facility] Urinary incontinence Urinary tract infection hx Surgical History H/O section X 2 History of cataract surgery History of esophagogastroduodenoscopy (EGD) 08/08/20 [place] History of heart surgery at 13 years old, open heart d/t ? 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 Feels Safe at Home: Yes Childhood Exposure to Second-Hand Smoke: Yes caffeine: Yes Dental Care, Regularly: No Physical Activity Frequency: 3-4 Times per Week Seatbelt Use: always Sunscreen Use: No Assistive Devices: Brace/Splint/Immobilizer, Denture - Upper and Walker Results & Data ([facility]) Vital Signs (Past 12 Hours) Vital Signs Temp Pulse Pulse Resp BP BP Pulse Ox 10/19/20 06:00 67 17 161/95 H 96 10/19/20 05:00 67 17 151/90 H 95 10/19/20 04:00 69 17 166/90 H 95 10/19/20 03:54 166/98 H 10/19/20 03:39 69 18 154/102 H 96 10/19/20 02:25 69 10/19/20 01:56 37.3 C 72 18 144/79 H 96 10/19/20 01:30 76 17 151/87 H 94 10/19/20 01:29 37.2 C 20 95 10/19/20 01:00 72 21 133/82 96 10/19/20 00:30 72 15 135/76 97 10/19/20 00:01 77 23 131/96 99 10/18/20 23:30 75 24 119/76 99 10/18/20 23:10 82 20 97 10/18/20 23:00 85 29 H 96 10/18/20 22:50 85 22 94 10/18/20 22:26 95 H 21 93
--- NOTE | 2020-10-19 10:06 | History & Physical Bridge Note ---
Date of Service October 19, 2020 History & Physical Bridge Note Patient is a pleasant 70-year-old female On the evening of October 18, 2020, it was reported that she tripped over some food felt nauseous headed to the bathroom with the intent to urinate but passed out It is reported that patient spouse performed a minute of CPR prior to EMS arrival When EMS arrived she went pulseless was being transferred to the ambulance 1 cycle of CPR was performed with religion of spontaneous circulation. There was no monitor attached at that time No shock was given On arrival in the ER, she is awake alert and oriented There is reported rib fractures from the CPR The ED doc got in touch with me and after reviewing EKG and satisfying myself that there was no role for an acute coronary intervention, patient was admitted to the ICU with heparin drip No overnight events Troponins remain indeterminate Physical examclear lung burrell, regular rate and rhythm, no pedal edema The plan will be for patient to undergo cardiac catheterization on Wednesday, October 21, 2020 In the interim continue heparin drip, aspirin 81 mg daily has been initiated Metoprolol XL 25 mg daily has been initiated Hold JANE inhibitor until post-cath Echocardiogram has been ordered for review
--- NOTE | 2020-10-19 10:08 | Progress Notes ---
DATE OF SERVICE: 10/19/2020 Gill is 70. She had cardiac arrest yesterday. She fell down and injured her right ankle. She of fers no other complaint. Her past medical history is noted and reviewed. She is afebrile. Her vital signs are stable. There is mild swelling and tenderness of the lateral m alleolus. She can wiggle her toes and flex and extend her ankle. Strength intact. Sensation intact. Dorsalis pedis is 1+. No ischemia. Hindfoot nontender. Questionable tenderness of the lateral mid foot area. Skin closed. She has a fracture boot. Three-view x-ray of right ankle demonstrates a nondisplaced Riley A type ankle fracture. Ankle morti se and syndesmosis intact. Report reviewed. Check x-rays of the foot. She has a fracture boot. She may weightbear as tolerated with assistive d evice when medically able. She can follow up in the office to see us upon her discharge within the n ext 7-10 days. Elevate and ice. Job ID: [id number]
--- NOTE | 2020-10-19 10:50 | XRay Report ---
RIGHT FOOT 3 VIEWS CLINICAL HISTORY: Right foot pain and swelling. FINDINGS: 3 views of the right foot are obtained. No prior studies are available for comparison at th e time of dictation. The skeletal structures are osteopenic. No fracture is identified. Moderate oste oarthritic change is seen at the first metatarsophalangeal joint. Mild degenerative change is noted i n the midfoot. There is a plantar calcaneal enthesophyte. Soft tissue edema is seen around the ankle. IMPRESSION: Osteopenia and degenerative change as above with no acute bony abnormality identified. Electronically signed by: Talha Storey M.D. 10/19/2020 10:49 AM
--- NOTE | 2020-10-19 11:22 | XCELERA ---
[id number]
[2020-10-19] MEDS: FAMOTIDINE 20 MG in SYRINGE 3 ML IV SCH ×2 (11:55→20:04)
[2020-10-19] MEDS: ASPIRIN 81 MG CHEW PO SCH (11:55)
[2020-10-19] MEDS: METOPROLOL SUCC 25MG EXT REL TAB PO SCH (11:55)
--- NOTE | 2020-10-19 13:35 | Cardiology Consultation ---
Date of Consultation October 19, 2020 Assessment & Plan (1) Cardiac arrest: Etiology and exact nature of her cardiac arrest remains unclear. The fact that she had prior surgery, possibly ventricular (? VSD repair) suggests that she would have the substrate for dysrhythmia. She did have hypokalemia and borderline low magnesium, which could have contributed to myocardial electrical instability. Although her ECG shows extensive ST-T wave abnormalities, these could well be as a result of arrest related myocardial damage rather than ongoing myocardial ischemia. Her ECG does appear to be improving and she has no anginal type chest pain currently. Echocardiogram shows no apparent wall motion abnormalities, LV systolic function is low normal (50-55%, quite favorable given her postarrest status). CT of the chest suggests a small saccular left ventricular apical aneurysm, this could not be readily confirmed on echocardiogram and given normal-appearing endocardial motion this may be an artifact rather than true aneurysm. If in fact there is a small defect this would create the unstable electrical substrate, which in the context of hypokalemia/borderline hypomagnesemia could have led to a dysrhythmic arrest. Unclear if this finding is related to her apparent history of VSD repair. I did re-review her echocardiogram after the history of VSD became apparent, there is mildly increased echogenicity in the membranous ventricular septum but no definitive evidence of VSD repair. Given the possibility of underlying CAD/myocardial ischemia, agree with Dr. Brownlee's recommendations for heparin infusion, aspirin, metoprolol followed by cardiac catheterization on Wednesday. Depending upon the findings, she may be a candidate for ICD placement post episode of sudden cardiac . Will follow along over the weekend. (2) Aortic stenosis, mild: Not felt to be hemodynamically significant. (3) Left ventricular aneurysm: As noted above, unable to confirm on echo. Could be evaluated on left ventriculogram at the time of cath. (4) Vascular dementia without behavioral disturbance: Her interactions with me were appropriate, she seems to have fairly good insight. (5) Rib fractures: Status post CPR. History of Present Illness Reason for Consultation: Cardiac arrest Requesting Physician: Carroll Ocampo Attending Physician: Carroll Ocampo History of Present Illness 70-year-old woman with multiple medical problems including remote cardiac surgery (at age 13, possibly for a VSD) who was admitted after cardiac arrest yesterday. She has no recollection of the events. She apparently had left the dinner table, possibly after becoming dyspneic, her found her slumped over the commode in the bathroom and with assistance brought her to another room where CPR was initiated. She was awake when EMS arrived, but upon transfer into the ambulance she became unresponsive again. After 2 minutes of CPR she awakened. No documentation of dysrhythmia since she was not on a monitor during the arrest episodes. She has chest wall pain at the site of her left third and fourth rib fractures (presumably from CPR, however CT suggest that they could be subacute). She does not have a deeper or visceral pain to suggest ongoing angina. She denies any dyspnea, palpitations, nausea or lightheadedness. Aside from her chest wall pain, she had no significant somatic complaints. Allergies Allergy/AdvReac Type Severity Reaction Status Date / Time aspirin Allergy Mild makes her Verified 10/18/20 22:29 sick Sulfa (Sulfonamide Allergy Unknown Unknown rxn Verified 10/18/20 22:29 Antibiotics) metoprolol AdvReac Intermediate makes her Verified 10/18/20 22:29 sick Home Medications Medication Instructions Recorded Confirmed Type alendronate 70 mg tablet 70 mg PO WEEKLY #12 tab 08/05/20 10/18/20 Rx celecoxib 200 mg capsule 200 mg PO QAM 08/07/20 10/18/20 History cholecalciferol (vitamin D3) 50 50 mcg PO QPM 08/07/20 10/18/20 History mcg (2,000 unit) capsule citalopram 40 mg tablet 40 mg PO QPM 08/07/20 10/18/20 History cyanocobalamin (vitamin B-12) 1,000 mcg PO QPM 08/07/20 10/18/20 History 1,000 mcg tablet (Vitamin B-12) fluticasone furoate 100 1 puffs INH QAM PRN 08/07/20 10/18/20 History mcg-vilanterol 25 mcg/dose inhalation powder (Breo Ellipta) multivitamin 1 tab PO QPM 08/07/20 10/18/20 History pantoprazole 40 mg tablet,delayed 40 mg PO DAILY #30 tab 08/21/20 10/18/20 Rx release (Protonix) lisinopril 5 mg tablet 5 mg PO QAM #90 tab 06/16/21 07/30/21 Rx oxybutynin chloride 15 mg 15 mg PO QAM #90 tab 10/15/20 10/18/20 Rx tablet,extended release 24 hr topiramate 25 mg tablet 25 mg PO BID 10/18/20 10/18/20 History Patient History Medical History Arrhythmia "skips a beat", old, nothing new Asymptomatic menopausal state Bronchitis Cataract Depression with anxiety Distal radius fracture Right Erosive gastropathy Esophageal abnormality tortuous esophagus Forgetfulness Hiatal hernia History of esophageal dilatation History of urinary urgency Hypertension Inflamed acrochordon Lumbar facet joint syndrome Orthostatic hypotension Osteoarthritis Stumbling gait BLE weakness Transient ischemic attack (TIA) >5 years ago, [facility] Urinary incontinence Urinary tract infection hx Surgical History H/O section X 2 History of cataract surgery History of esophagogastroduodenoscopy (EGD) 08/08/20 [place] History of heart surgery at 13 years old, open heart d/t ? 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 Afebrile. Mildly hypertensive. Pulse 60 bpm and regular with occasional ectopy. Skin: no ecchymoses or generalized lesions. HEENT: unremarkable. Neck: no JVD or carotid bruits. Chest wall: Marked tenderness left sternal border (rib fractures on CT) lungs: clear bilaterally. Cardiac: regular rhythm with readily audible aortic closure sound, 2/6 basal stock ejection murmur rating to the carotids, no diastolic murmur. Abdomen: benign. Extremities: Right foot in orthopedic boot (ankle fracture) mild right ankle edema, good capillary refill both feet. Neurologic: normal affect, answers questions appropriately, grossly nonfocal. Results & Data ([facility]) Laboratory Results WBC 11.62, normal hemoglobin and platelet count. Initial potassium 3.2, 4.4 today. BUN 15, creatinine 0.84. Troponin with peak and decay curve (0.045, 0.600, 0.421). Statistically and clinically insignificant Diagnostic Findings -ECG on admission showed sinus rhythm with occasional PVCs, incomplete right bundle branch block, diffuse significant ST depression across the precordium and to a lesser degree inferior leads, global T wave inversions. QTC was prolonged. -ECG today showed sinus rhythm, incomplete right bundle branch block, mild to moderate ST depression across the precordium with T wave inversions, ST-T wave abnormalities were less pronounced than yesterday. QTC was prolonged. -Echocardiogram today showed low normal LV systolic function (EF 50 to 55%) with normal left ventricular wall motion, mild aortic stenosis, normal right ventricular systolic pressure. All visualized areas of the apical endocardium appear to contract normally. There was a small like a lucency in the epicardial region of the apex which could not be well characterized. Thus, small left ventricular aneurysm suggested on CT could neither be confirmed or excluded. -Chest x-ray showed cardiomegaly without pulmonary edema. Bibasilar opacities noted. -Chest CT with no pulmonary emboli, bibasilar atelectasis, "1.5 cm saccular aneurysm of the left -ventricular apex", fractured left third and fourth ribs without pneumothorax. PG Care Time/CCT Total # of Minutes Spent Total Time Spent with Patient: Total time spent is greater than 50% in coordination of care (as documented) at patient's floor/unit and/or counseling patient: Coding Level of Care Code 56708 Initial Inpt Care Lvl 3 Diagnoses Cardiac arrest I46.9 Aortic stenosis, mild I35.0 Vascular dementia without behavioral disturbance F01.50 Rib fractures S22.49XA Left ventricular aneurysm I25.3
--- NOTE | 2020-10-19 14:34 | Communication Note ---
Date of Service: October 19, 2020 Addendum from progress note before: On repeat visit this afternoon, patient did report that around the time she had syncopated yesterday, she did report choking on a hamburger. She says this has happened multiple times and has gotten worse over the last few months. A&P: Solid food dysphagia, progressive. Unclear how this may have related to event, or prompted arrhythmia vs. transient respiratory difficulty/failure, or if just incidental. * Discussed with Dr. Anthony, curriculum and assessment coordinator, overseeing care in ICU * Consulted COFFEE ROASTER * CT-Soft Tissue Neck w/ contrast ordered
[2020-10-19] MEDS ORDERED: OPTIRAY 320 100ml IV ONE (16:20)
--- NOTE | 2020-10-19 16:34 | CT Scan Report ---
CT SCAN OF THE NECK WITH IV CONTRAST CLINICAL HISTORY: Dysphagia COMPARISON STUDY: Chest CT dated 10/18/2020. TECHNIQUE: Following the IV administration of 94 cc of Optiray 320, CT scan of the soft tissues of th e neck was performed from the skull base to the upper chest. Images are reviewed in the axial, sagitt al, and coronal planes. IV contrast was administered without complication. A dose lowering techniqu e was utilized adhering to the principles of ALARA. The examination is degraded by motion artifact. CT DOSE: 451.22 mGy.cm FINDINGS: Pharynx: The pharyngeal soft tissues are normal as visualized. The pharyngeal airway is widely patent . There is no evidence of mass lesion. The vocal cords are symmetric. The parapharyngeal fat is well maintained. The epiglottis is normal. The prevertebral/retropharyngeal soft tissues are within normal limits. The patient is edentulous. Imaged portions of the esophagus appears circumferentially thick walled. Lymphadenopathy: No cervical lymphadenopathy is seen Thyroid: Normal in size and heterogeneous in attenuation. Salivary glands: The parotid and submandibular glands are within normal limits. Brain parenchyma: The visualized brain parenchyma at the skull base is normal in appearance. Vascular structures: There is atherosclerotic calcification of the thoracic aorta. There is mild aneu rysmal dilatation of the ascending thoracic aorta. Imaged portions measure up to 4 cm diameter. The a ortic arch demonstrates bovine variant anatomy. The carotid arteries and jugular veins are patent. At herosclerotic calcification is noted in the carotid bulbs. Skeletal structures: The skeletal structures are osteopenic. Imaged portions of the calvarium at the skull base are within normal limits. The cervical spine appears maintained noting mild multilevel spo ndylosis. No lytic or blastic lesion is seen. Sinuses and mastoids: There is trace mucosal thickening within the maxillary antra. The remaining vis ualized paranasal sinuses are clear. The mastoid air cells are well pneumatized. Orbits: The bony orbits are intact. Orbital contents are normal as visualized noting bilateral ocular lens implants. Upper chest: Visualized upper lobe lung parenchyma is clear. IMPRESSION: 1. The pharyngeal soft tissues are normal as visualized. 2. Imaged portions of the esophagus appears circumferentially thick walled. Correlate clinically for evidence of esophagitis. 3. Mild aneurysmal dilatation of the ascending thoracic aorta measures up to 4.0 cm. This was better assessed on yesterday's chest CT. 4. Additional findings as above. ACT 112: Negative or not required by law. Electronically signed by: Talha Storey M.D. 10/19/2020 4:33 PM
[2020-10-19] MEDS: CYANOCOBALAMIN 500 MCG TABLET (VITAMIN B-12) PO SCH (20:01)
[2020-10-19] MEDS: CHOLECALCIFEROL 1,000 UNITS 25 MCG TAB PO SCH (20:01)
[2020-10-19] MEDS: MULTIVITAMIN TAB PO SCH (20:02)
[2020-10-19] MEDS ORDERED: CITALOPRAM 40 MG TAB PO SCH (21:00)
--- NOTE | 2020-10-19 21:40 | Billing Data ---
Date of Service October 19, 2020 Coding Level of Care Code 38696 Subseq Hosp Care Lvl 3
[2020-10-20] MEDS ORDERED: ACETAMINOPHEN 1,000 MG/100 ML VIAL IV STA (02:30)
[2020-10-20] MEDS: HEPARIN SODIUM/DEXTROSE 25,000 UNITS/500 ML BAG IV SCH (02:48)
[2020-10-20] MEDS ORDERED: MoRPHine SULFATE 2 MG/ML CARP IV STA (03:36)
[2020-10-20 04:50] LABS: Basophils # (auto) 0.06 K/uL (0-0.2); Basophils % (auto) 0.7 %; Eosinophils # (auto) 0.09 K/uL (0-0.5); Hematocrit (blood only) 36.3 % (37-47); Immature Granulocytes # (auto) 0.02 K/uL (0.00-0.02); Immature Granulocytes % (auto) 0.2 %; Lymphocytes % (auto) 22.5 %; Mean Corpuscular Hemoglobin 31.2 pg (25-34); Mean Corpuscular Hgb Conc 33.1 g/dL (32-36); Mean Corpuscular Volume 94.3 fL (80-100); Mean Platelet Volume 10.4 fL (7.4-10.4); Monocytes # (auto) 0.79 K/uL (0.11-0.59); Monocytes % (auto) 8.9 %; Neutrophils # (auto) 5.93 K/uL (1.4-6.5); Neutrophils % (auto) 66.7 %; Platelet Count 212 K/uL (130-400); RDW Coefficient of Variation 13.6 % (11.5-14.5); Red Blood Count 3.85 M/uL (4.2-5.4); White Blood Count 8.89 K/uL (4.8-10.8)
[2020-10-20 05:00] LABS: Partial Thromboplastin Ratio 1.5; Partial Thromboplastin Time 39.6 Seconds (21.0-31.0); Prothrombin Time 10.3 Seconds (9.0-12.0)
[2020-10-20 05:35] LABS: Albumin Level 3.2 gm/dl (3.4-5.0); BUN Creatinine Ratio 11.6 (10-20); Calcium 8.2 mg/dl (8.5-10.1); Creatinine Clr Calc Pharmacy 86.8 ml/min; Est GFR (African American) 106.1 ml/min; Est GFR (Non-African American) 91.6 ml/min; Globulin 3.3 gm/dl (2.5-4.0); Magnesium 1.9 mg/dl (1.8-2.4); Phosphorus 2.5 mg/dl (2.5-4.9); Potassium 3.7 mmol/L (3.5-5.1); Total Protein 6.5 gm/dl (6.4-8.2)
[2020-10-20] MEDS ORDERED: MAGNESIUM SULFATE / D5W 1 GM/100 ML BAG IV ONE (05:51)
[2020-10-20] MEDS: NSS + 20MEQ KCL 20 MEQ/1,000 ML BAG IV SCH ×2 (05:56→21:04)
[2020-10-20] MEDS: POTASSIUM CHLORIDE / WTR 10 MEQ/100 ML PLCT IV SCH ×3 (06:03→08:22)
[2020-10-20] MEDS: ASPIRIN 81 MG CHEW PO SCH (07:29)
[2020-10-20] MEDS: OXYBUTYNIN CHLORIDE XL 5 MG TABCR PO SCH (07:29)
[2020-10-20] MEDS: METOPROLOL SUCC 25MG EXT REL TAB PO SCH (07:30)
[2020-10-20] MEDS: TOPIRAMATE 25 MG TAB PO SCH ×2 (07:30→21:06)
[2020-10-20] MEDS: ATORVASTATIN 40 MG TAB PO SCH (07:30)
[2020-10-20] MEDS: FAMOTIDINE 20 MG in SYRINGE 3 ML IV SCH ×2 (07:32→21:08)
--- NOTE | 2020-10-20 08:09 | Electrocardiogram Report ---
Test Reason : Blood Pressure : / mmHG Vent. Rate : 055 BPM Atrial Rate : 055 BPM P-R Int : 142 ms QRS Dur : 104 ms QT Int : 568 ms P-R-T Axes : 045 026 029 degrees QTc Int : 543 ms Poor data quality, interpretation may be adversely affected Sinus bradycardia Prolonged QT Abnormal ECG When compared with ECG of 19-OCT-2020 05:02, No significant change Confirmed by Paco Shaw ([id number]) on 10/20/2020 8:09:42 AM Referred By: REFERRED SELF Confirmed By:Paco Shaw
--- NOTE | 2020-10-20 08:14 | Electrocardiogram Report ---
Test Reason : Blood Pressure : / mmHG Vent. Rate : 067 BPM Atrial Rate : 067 BPM P-R Int : 166 ms QRS Dur : 108 ms QT Int : 528 ms P-R-T Axes : 067 029 029 degrees QTc Int : 557 ms Normal sinus rhythm Incomplete right bundle branch block Prolonged QT Abnormal ECG When compared with ECG of 19-OCT-2020 22:04, No significant change Confirmed by Paco Shaw ([id number]) on 10/20/2020 8:13:50 AM Referred By: REFERRED SELF Confirmed By:Paco Shaw
--- NOTE | 2020-10-20 08:33 | Critical Care Progress Note ---
Date of Service October 20, 2020 Assessment & Plan (1) Cardiac arrest: Plan: Impression: 70-year-old female presents to the ICU following in field cardiac arrest x2 which ROSC was achieved with CPR only. 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 operating room registered nurse consulted and plan for patient to undergo medical management with heparin drip overnight with plans for cardiac catheterization in the morning. If patient were to decompensate will go for emergent catheterization. Patient admitted to ICU for close monitoring and management. Neuro - [facility] ICU: Negative Vascular dementia without behavioral disturbancespatient appears to be at baseline mental status. No evidence of anoxic injury following cardiac arrest -CT head without acute intracranial finding -Migrainescontinue Topamax -Anxiety and depressioncontinue citalopram Cardiac - Cardiac arrestas described in HPI, patient underwent CPR for 2 cardiac arrest in which ROSC was achieved at approximately 2 minutes each time. Unknown underlying dysrhythmia. Patient did not receive epi or shock -CTA chest revealed 1.5 cm saccular aneurysms of the left ventricular apex -Interventional cardiology stat consulted. Recommended heparin drip with plan for cardiac cath this a.m. if patient remains hemodynamically stable. If patient were to decompensate will undergo emergent cardiac cath -Continue heparin drip HTN -Restart lisinopril HLDcontinue Lipitor Respiratory - Currently maintaining oxygen saturations on room air without respiratory distress. Lungs clear to auscultation and symmetrical chest wall movement -CTA chest without PE, mild bibasilar opacities. No pneumothorax. Angulated fractures anterior left third and fourth ribs with mild sclerosis of the anterior left fourth and fifth ribs -Continuous monitoring pulse ox -History of asthmacontinue Brio Ellipta, DuoNeb as needed GI - N.p.o. after midnight GERDfamotidine RENAL/LYTES - Creatinine within normal limits -Patient with hypokalemia and hypomagnesemia. Repleting -Monitor BMPs and replete electrolytes as indicated - Strict I's and O's ENDO - No history of diabetes or thyroid disease HEME - H&H stable, monitor routine CBCs ID - No indication for infectious process at this time LINES/IV ACCESS - Peripheral IVs DVT PROPHYLAXIS - SCDs, heparin drip Disposition: -Remains ICU until [facility] tomorrow (2) Left ventricular aneurysm: (3) Ankle fracture: (4) Abnormal EKG: (5) Acute hypokalemia: (6) Vascular dementia without behavioral disturbance: (7) Osteoporosis: (8) Gait disturbance: (9) Dyslipidemia: (10) Chronic cerebral ischemia: (11) Cerebral amyloid angiopathy: (12) Asthma: (13) GERD (gastroesophageal reflux disease): (14) Depression with anxiety: (15) Stumbling gait: (16) Lumbar facet joint syndrome: (17) Hypertension: (18) Dysphagia: (19) Essential tremor: (20) Aortic stenosis, mild: (21) Rib fractures: Admission and Anticipated Discharge Date Admission Date: October 19, 2020 Subjective Overnight became somewhat disoriented, near baseline today agreeable, no chest p ain no shortness of breath understands she will be going to the [facility] tomorrow Physical Exam Physical Exam: General: Alert. nontoxic. Skin: Warm, dry, Head: Atraumatic Ears, nose, mouth and throat: airway patent Cardiovascular: Normal peripheral perfusion Respiratory: no respiratory distress Gastrointestinal: Non distended Musculoskeletal: No deformity Results & Data Results & Data ([facility]) Vital Signs (Past 12 Hours) Vital Signs Temp Pulse Resp BP Pulse Ox 10/20/20 07:00 37 C 56 L 19 149/84 H 95 10/20/20 05:29 53 L 16 151/74 H 94 10/20/20 04:29 36.7 C 56 L 22 131/79 92 10/20/20 03:30 71 22 156/90 H 94 10/20/20 02:29 36.7 C 69 22 154/120 H 96 10/20/20 02:22 77 10/20/20 01:30 56 L 22 136/103 H 96 10/20/20 00:30 66 19 155/85 H 96 10/19/20 23:29 65 22 168/95 H 95 10/19/20 22:30 65 14 160/84 H 99 10/19/20 22:10 66 21 159/79 H 97 10/19/20 22:04 63 19 183/80 H 97 10/19/20 21:30 36.7 C 57 L 18 168/100 H 97 Laboratory Results 10/20/20 10/20/20 10/20/20 Range/Units 04:05 04:05 04:05 WBC 8.89 (4.8-10.8) K/uL RBC 3.85 L (4.2-5.4) M/uL Hgb 12.0 (12.0-16.0) g/dL Hct 36.3 L (37-47) % MCV 94.3 (80-100) fL MCH 31.2 (25-34) pg MCHC 33.1 (32-36) g/dL RDW Std Deviation 47.0 H (36.4-46.3) fL RDW Coeff of [place] 13.6 (11.5-14.5) % Plt Count 212 (130-400) K/uL MPV 10.4 (7.4-10.4) fL Immature Gran % (Auto) 0.2 % Neut % (Auto) 66.7 % Lymph % (Auto) 22.5 % [place] % (Auto) 8.9 % Eos % (Auto) 1.0 % Baso % (Auto) 0.7 % Neut # (Auto) 5.93 (1.4-6.5) K/uL Lymph # (Auto) 2.00 (1.2-3.4) K/uL [place] # (Auto) 0.79 H (0.11-0.59) K/uL Eos # (Auto) 0.09 (0-0.5) K/uL Baso # (Auto) 0.06 (0-0.2) K/uL Immature Gran # (Auto) 0.02 (0.00-0.02) K/uL PT 10.3 (9.0-12.0) Seconds INR 1.0 (0.9-1.1) APTT 39.6 H (21.0-31.0) Seconds PTT Ratio 1.5 Sodium 140 (136-145) mmol/L Potassium 3.7 D (3.5-5.1) mmol/L Chloride 112 H (98-107) mmol/L Carbon Dioxide 23 (21-32) mmol/L Anion Gap 5.0 (3-11) BUN 7 D (7-18) mg/dl Creatinine 0.59 L (0.6-1.2) mg/dl Est Cr Clr Drug Dosing 86.8 ml/min Est GFR ( Amer) 106.1 ml/min Est GFR (Non-Af Amer) 91.6 ml/min BUN/Creatinine Ratio 11.6 (10-20) Glucose 119 H (70-99) mg/dl Calcium 8.2 L (8.5-10.1) mg/dl Phosphorus 2.5 (2.5-4.9) mg/dl Magnesium 1.9 (1.8-2.4) mg/dl Total Bilirubin 1.0 D (0.2-1) mg/dl AST 29 (15-37) U/L ALT 25 (12-78) U/L Alkaline Phosphatase 55 (45-117) U/L Troponin I (0-0.045) ng/ml Total Protein 6.5 (6.4-8.2) gm/dl Albumin 3.2 L (3.4-5.0) gm/dl Globulin 3.3 (2.5-4.0) gm/dl Albumin/Globulin Ratio 1.0 (0.9-2) 25-OH Vitamin D Total 10/20/20 10/19/20 10/19/20 Range/Units 04:05 18:41 10:17 WBC (4.8-10.8) K/uL RBC (4.2-5.4) M/uL Hgb (12.0-16.0) g/dL Hct (37-47) % MCV (80-100) fL MCH (25-34) pg MCHC (32-36) g/dL RDW Std Deviation (36.4-46.3) fL RDW Coeff of [place] (11.5-14.5) % Plt Count (130-400) K/uL MPV (7.4-10.4) fL Immature Gran % (Auto) % Neut % (Auto) % Lymph % (Auto) % [place] % (Auto) % Eos % (Auto) % Baso % (Auto) % Neut # (Auto) (1.4-6.5) K/uL Lymph # (Auto) (1.2-3.4) K/uL [place] # (Auto) (0.11-0.59) K/uL Eos # (Auto) (0-0.5) K/uL Baso # (Auto) (0-0.2) K/uL Immature Gran # (Auto) (0.00-0.02) K/uL PT (9.0-12.0) Seconds INR (0.9-1.1) APTT (21.0-31.0) Seconds PTT Ratio Sodium (136-145) mmol/L Potassium (3.5-5.1) mmol/L Chloride (98-107) mmol/L Carbon Dioxide (21-32) mmol/L Anion Gap (3-11) BUN (7-18) mg/dl Creatinine (0.6-1.2) mg/dl Est Cr Clr Drug Dosing ml/min Est GFR ( Amer) ml/min Est GFR (Non-Af Amer) ml/min BUN/Creatinine Ratio (10-20) Glucose (70-99) mg/dl Calcium (8.5-10.1) mg/dl Phosphorus (2.5-4.9) mg/dl Magnesium (1.8-2.4) mg/dl Total Bilirubin (0.2-1) mg/dl AST (15-37) U/L ALT (12-78) U/L Alkaline Phosphatase (45-117) U/L Troponin I 0.251 H* 0.421 H* (0-0.045) ng/ml Total Protein (6.4-8.2) gm/dl Albumin (3.4-5.0) gm/dl Globulin (2.5-4.0) gm/dl Albumin/Globulin Ratio (0.9-2) 25-OH Vitamin D Total Pending Coding Level of Care Code 16505 Subseq Hosp Care Lvl 3 Diagnoses Cardiac arrest I46.9 Left ventricular aneurysm I25.3 Ankle fracture S82.891A Encounter type: initial encounter Fracture type: closed Laterality: right Abnormal EKG R94.31 Acute hypokalemia E87.6 Vascular dementia without behavioral disturbance F01.50 Osteoporosis M81.0 Gait disturbance R26.9 Dyslipidemia E78.5 Chronic cerebral ischemia I67.82 Cerebral amyloid angiopathy E85.4; I68.0 Asthma J45.909 GERD (gastroesophageal reflux disease) K21.9 Depression with anxiety F41.8 Stumbling gait R26.0 Lumbar facet joint syndrome M47.816 Hypertension I10 Dysphagia R13.10 Essential tremor G25.0 Aortic stenosis, mild I35.0 Rib fractures S22.49XA (1) Ankle fracture Encounter type: initial encounter Fracture type: closed Laterality: right Qualified Code(s): S82.891A - Other fracture of right lower leg, initial encounter for closed fracture
--- NOTE | 2020-10-20 09:06 | Hospitalist Progress Note ---
Date of Service October 20, 2020 Assessment & Plan (1) Cardiac arrest: Plan: Gill Hall is a 70yo female with PMHx significant for hypertension, hyperlipidemia, vascular dementia, anxiety, depression, asthma, migraines who presented to [facility] following cardiac arrest in the field with subsequent ROSC x2. Upon her arrival here, chest imaging demonstrated a large, left ventricular saccular aneurysm. She currently remains in the ICU for intensive hemodynamic monitoring, pending cardiac cath tomorrow. Cardiac Arrest, s/p ROSC | Left Ventricular Aneurysm (1.5cm) S/p CPR x 2 in the field with achievement of ROSC (did not receive shock or epi, amio) -- Unknown underlying rhythm that prompted this. ?Malignant arrhythmia vs. profound bradycardia from vaso-vagal response, may have been triggered by choking episode * Has not required pressure or respiratory support * ECG demonstrating ST-depressions in the inferior leads with mildly elevated Troponin that peaked at 0.6 * TTE with low-normal LVSF (EF 50-55%), small LV aneurysm cannot be excluded * Interventional cardiology consulted upon arrival: anticipate catheterization Wednesday * Continue heparin gtt for now; patient may require chronic anticoagulation given risk for thrombus formation * Consider loop recorder prior to discharge * Already initiated on Toprol XL 25 daily * Hold on ACEI until s/p catheterization * Continue atorvastatin (new) Dysphagia Symptoms occurred following choking episode on hamburger, patient symptoms has dysphagia with solid foods. * CT neck with signs of esophagitis but no significant pathology * MOTION STUDY ENGINEER consult pending Elevated Troponin As stated above peaked at 0.6, with ST-depressions in inferior leads. Suspect NSTEMI vs Type II MD. * Cardiac cath tomorrow as stated above RIGHT Ankle Fracture * Closed right ankle fracture involving the RIGHT lateral malleolus * Ortho consulted, following: recommend WBAT with boot; elevate and ice - F/U in 7-10 days after discharge * Will check vitamin D level in morning * Consider DEXA as outpatient if not already done Rib Fractures * Appreciated on admission imaging * Suspect acute component s/p CPR, possibly chronic as well * No acute needs. Analgesia PRN Hypokalemia * Appreciated on admission, s/p repletion * Demonstrating normalcy this AM - continue ICU repletion protocol Vascular Dementia, Anxiety, Depression * No acute needs at this time * held Citalopram due to concern for prolonged QTc * Continue Topamax HLD * Continue atorvastatin 80 (new to this admission) * Lipid profile: TG 153, TC 178, LDL 112, HDL 35 HTN * Hold JANE-I for now until catheterization Asthma * No acute needs. Stable respiratory status, no O2 requirement * Continue home Breo Mild * Noted. F/U echocardiogram results. GERD * Continue Protonix Code: FULL CODE Dispo: ICU Diet: heart-healthy/qgml-wx-wyxo, NSS +20mEq K @80cc/hr PPX: Hep gtt, Famotidine (2) Left ventricular aneurysm: (3) Ankle fracture: (4) Abnormal EKG: (5) Acute hypokalemia: (6) Vascular dementia without behavioral disturbance: (7) Osteoporosis: (8) Gait disturbance: (9) Dyslipidemia: (10) Chronic cerebral ischemia: (11) Cerebral amyloid angiopathy: (12) Asthma: (13) GERD (gastroesophageal reflux disease): (14) Depression with anxiety: (15) Stumbling gait: (16) Lumbar facet joint syndrome: (17) Hypertension: (18) Dysphagia: (19) Essential tremor: (20) Aortic stenosis, mild: (21) Rib fractures: Admission and Anticipated Discharge Date Admission Date: October 19, 2020 Supervising Physician Co-Signing Physician Notes Attending Attestation & progress note: Pt seen/examined, chart reviewed, care plan d/w resident Dr Gilmer Delgado. I agree w/ the carcamo components of his documentation. at bedside during my visit. Tele wnl overnight. No complaints during my visit. states that the cardiac arrest event occurred shortly after the patient had finished eating. She was apparently clutching her left upper chest and was having dyspnea. He said "she was as blue in the face as can be" when this event occurred. He does state she has difficulty with swallowing solids. VSS although BPs cont to be elevated, afebrile gen - NAD heart - RRR, s1 s2, 2/6 systolic murmur RUSB lungs - CTA b/l mouth - MMM, no lesions abd - soft NT ND BS+ chest - no reproducible chest wall tenderness today ext - no edema on left, mild edema right foot/ankle 2nd fracture; pulses 2+ b/l labs reviewed A/P: 1. cardiac arrest s/p CPR with ROSC -- etiology?? when AED was applied at her home no shockable rhythm identified. No dysrhythmia since admission. [id number] will have left heart cath tomorrow AM. if normal - dia recorder implantation to r/o dysrhythmia, especially in light of prolonged QTc? could she have had an hypoxic event with vasovagal physiology in the setting of choking on food? cont heparin in the event this was an ischemic event. 2. dysphagia for solids - soft tissue neck CT wnl. H/o tortuous esophagus s/p dilatation 07/[address] Bolden this admission - need for repeat EGD? 3. elevated troponin - mild ACS? or, was troponin leak simply from the cardiac arrest itself? favor latter. appreciate cardiology consult. 4. LV aneurysm - discussed with Dr Shaw - oral anticoagulation will likely not be needed given lack of wall motion abnormalities. LV aneurysm 2nd to prior VSD repair at age 13?? 5. right ankle fracture - conservative Rx for now. 25-OH vit D pending. 6. prolonged QTc - agree with holding SSRI. 7. HTN - increase lisinopril to 5mg BID. Carroll Ocampo MD Subjective No acute events overnight. HR remains in NSR per telemetry monitoring. Patient feels well overall. Denies chest pain, palpitations, syncope/near-syncope, diaphoresis, SOB, N/V. Review of Systems Review of Systems: All systems reviewed & are unremarkable except as noted in Subjective Physical Exam Physical Exam: General: A&Ox3. NAD. Cooperative. HEENT: Atraumatic, normocephalic. Pulm: CTAB A&P. -wheezes, -rales, -rhonchi. Symmetrical chest rise. No increase work of breathing. No respiratory distress. Cardiac: RRR, -mrg. Radial pulses intact and symmetrical. No LE edema. Abdominal: soft, non-tender, non-distended, BS x 4 Skin: warm, dry, no rash Results & Data Results & Data ([facility]) Vital Signs (Past 12 Hours) Vital Signs Temp Pulse Resp BP Pulse Ox 10/20/20 07:00 37 C 56 L 19 149/84 H 95 10/20/20 05:29 53 L 16 151/74 H 94 10/20/20 04:29 36.7 C 56 L 22 131/79 92 10/20/20 03:30 71 22 156/90 H 94 10/20/20 02:29 36.7 C 69 22 154/120 H 96 10/20/20 02:22 77 10/20/20 01:30 56 L 22 136/103 H 96 10/20/20 00:30 66 19 155/85 H 96 10/19/20 23:29 65 22 168/95 H 95 10/19/20 22:30 65 14 160/84 H 99 10/19/20 22:10 66 21 159/79 H 97 10/19/20 22:04 63 19 183/80 H 97 10/19/20 21:30 36.7 C 57 L 18 168/100 H 97 Resident Activity Tracking Resident Involvement: Resident Care Provided Care Provided: Adult Hospital Medicine (1) Ankle fracture Encounter type: initial encounter Fracture type: closed Laterality: right Qualified Code(s): S82.891A - Other fracture of right lower leg, initial encounter for closed fracture
[2020-10-20] MEDS: lisinopril 5 MG TAB PO SCH ×2 (11:16→21:04)
--- NOTE | 2020-10-20 13:21 | Cardiology Progress Note ---
Date of Service October 20, 2020 Assessment & Plan (1) Cardiac arrest: Plan: Etiology and exact nature of her cardiac arrest remains unclear. Additional history suggest a choking episode and the possibility of vasovagal or hypoxic induced etiology for unresponsiveness. The fact that she had prior cardiac (apparent VSD repair as a teenager) would also suggest a substrate for dysrhythmia. She has had PVCs/bigeminy on monitor but no dysrhythmias. She does have persistent prolongation of her QT interval (QTc=0.56), this could be result of subendocardial ischemia (from cardiac arrest) or secondary to citalopram (oxybutynin and topiramate are not associated with long QT). In the absence of a prior ECG confirming that her QT is not prolonged by citalopram, would discontinue this medication. She did have hypokalemia and borderline low magnesium, which could have further contributed to myocardial electrical instability. She has a history of chronic diarrhea, so potassium and magnesium supplements may be appropriate upon discharge. Agree with proceeding to cardiac catheterization to evaluate coronary anatomy. Suspect that her troponin elevation was demand ischemia secondary to dysrhythmic or hypoxic cardiac arrest, but it will be useful to exclude occlusive coronary disease and evaluate her LV "saccular aneurysm". (2) Left ventricular aneurysm: Plan: Her history of apparent VSD repair as a teenager may explain the chest CT findings of a "saccular aneurysm" near the apex of the left ventricle, since there are no associated wall motion abnormalities to suggest associated myocardial damage (which would be the usual reason for a left ventricular aneurysm). This can be further evaluated with a left ventriculogram at the time of cardiac catheterization. (3) Aortic stenosis, mild: Plan: Not felt to be hemodynamically significant. (4) Vascular dementia without behavioral disturbance: Plan: She seems to lack insight today, but apparently this is not new. (5) Rib fractures: Plan: Status post CPR. Admission and Anticipated Discharge Date Admission Date: October 19, 2020 Subjective Patient denies complaint, does admit to chest wall pain when asked but denies any other chest discomfort. No dyspnea, lightheadedness, or subjective palpitations. Telemetry showed sinus rhythm with sporadic PVCs (including periods of bigeminy), no ventricular tachycardia or other dysrhythmias. Physical Exam Physical Exam: Appears comfortable. BP mildly hypertensive. Pulse 60 bpm and regular. Skin: no ecchymoses or generalized lesions. HEENT: unremarkable. Neck: no JVD or carotid bruits. Chest wall: Marked tenderness left sternal border (rib fractures on CT) lungs: clear bilaterally. Cardiac: regular rhythm with readily audible aortic closure sound, 2/6 basal stock ejection murmur rating to the carotids, no diastolic murmur. Abdomen: benign. Extremities: Right foot in orthopedic boot (ankle fracture) mild right ankle edema, good capillary refill both feet. Neurologic: Answers simple questions appropriately but poor insight, grossly nonfocal. Results & Data ([facility]) Vital Signs (Past 12 Hours) Vital Signs Temp Pulse Resp BP Pulse Ox 10/20/20 07:00 98.6 F 56 L 19 149/84 H 95 10/20/20 05:29 53 L 16 151/74 H 94 10/20/20 04:29 98.1 F 56 L 22 131/79 92 10/20/20 03:30 71 22 156/90 H 94 10/20/20 02:29 98.1 F 69 22 154/120 H 96 10/20/20 02:22 77 10/20/20 01:30 56 L 22 136/103 H 96 Laboratory Results Declining troponin curve (0.6, 0.4, 0.2). Normal electrolytes, creatinine 0.59. Diagnostic Findings ECG today shows sinus rhythm with incomplete right bundle branch block and persistent anterior T wave inversions with prolonged QT. PG Care Time/CCT Total # of Minutes Spent Total Time Spent with Patient: Total time spent is greater than 50% in coordination of care (as documented) at patient's floor/unit and/or counseling patient: Coding Level of Care Code 72965 Subseq Hosp Care Lvl 3 Diagnoses Cardiac arrest I46.9 Aortic stenosis, mild I35.0 Left ventricular aneurysm I25.3 Vascular dementia without behavioral disturbance F01.50 Rib fractures S22.49XA
[2020-10-20 13:27] LABS: Partial Thromboplastin Ratio 1.5; Partial Thromboplastin Time 40.7 Seconds (21.0-31.0)
--- NOTE | 2020-10-20 20:36 | Billing Data ---
Date of Service October 20, 2020 Coding Level of Care Code 62638 Subseq Hosp Care Lvl 3
[2020-10-20 20:39] LABS: Partial Thromboplastin Ratio 1.6
[2020-10-20] MEDS: CYANOCOBALAMIN 500 MCG TABLET (VITAMIN B-12) PO SCH (21:05)
[2020-10-20] MEDS: CHOLECALCIFEROL 1,000 UNITS 25 MCG TAB PO SCH (21:05)
[2020-10-20] MEDS: MULTIVITAMIN TAB PO SCH (21:06)
[2020-10-21] MEDS: HEPARIN SODIUM/DEXTROSE 25,000 UNITS/500 ML BAG IV SCH (01:33)
[2020-10-21 03:59] LABS: BUN Creatinine Ratio 7.3 (10-20); Calcium 8.5 mg/dl (8.5-10.1); Creatinine Clr Calc Pharmacy 71.2 ml/min; Est GFR (Non-African American) 83.7 ml/min
[2020-10-21 04:35] LABS: Basophils # (auto) 0.04 K/uL (0-0.2); Basophils % (auto) 0.4 %; Eosinophils # (auto) 0.16 K/uL (0-0.5); Eosinophils % (auto) 1.6 %; Hematocrit (blood only) 38.8 % (37-47); Hemoglobin 12.8 g/dL (12.0-16.0); Immature Granulocytes # (auto) 0.02 K/uL (0.00-0.02); Immature Granulocytes % (auto) 0.2 %; Lymphocytes # (auto) 2.17 K/uL (1.2-3.4); Mean Corpuscular Hemoglobin 31.5 pg (25-34); Mean Corpuscular Volume 95.6 fL (80-100); Mean Platelet Volume 11.1 fL (7.4-10.4); Monocytes # (auto) 0.91 K/uL (0.11-0.59); Monocytes % (auto) 9.2 %; Neutrophils # (auto) 6.57 K/uL (1.4-6.5); Neutrophils % (auto) 66.6 %; Platelet Count 248 K/uL (130-400); RDW Coefficient of Variation 13.5 % (11.5-14.5); RDW Standard Deviation 47.2 fL (36.4-46.3); Red Blood Count 4.06 M/uL (4.2-5.4); White Blood Count 9.87 K/uL (4.8-10.8)
[2020-10-21 04:36] LABS: Potassium 3.9 mmol/L (3.5-5.1)
[2020-10-21 04:44] LABS: Partial Thromboplastin Ratio 1.8; Prothrombin Time 10.3 Seconds (9.0-12.0)
[2020-10-21 04:47] LABS: Partial Thromboplastin Time 47.6 Seconds (21.0-31.0)
[2020-10-21] MEDS ORDERED: POTASSIUM CHLORIDE / WTR 10 MEQ/100 ML PLCT IV ONE (06:03)
--- NOTE | 2020-10-21 06:53 | Hospitalist Progress Note ---
"Date of Service October 21, 2020 Assessment & Plan (1) Cardiac arrest: Plan: Gill Hall is a 70yo female with PMHx significant for hypertension, hyperlipidemia, vascular dementia, anxiety, depression, asthma, migraines who presented to [facility] following cardiac arrest in the field with subsequent ROSC x2. Upon her arrival here, chest imaging demonstrated a left ventricular saccular aneurysm. She currently remains in the ICU for intensive hemodynamic monitoring pending cardiac cath. Cardiac Arrest, s/p ROSC | Left Ventricular Aneurysm (1.5cm) S/p CPR x 2 in the field with achievement of ROSC (did not receive shock or epi, amio) -- Unknown underlying rhythm that prompted this. ?Malignant arrhythmia vs. profound bradycardia from vaso-vagal response, may have been triggered by choking episode * Has not required pressure or respiratory support * ECG demonstrating ST-depressions in the inferior leads with mildly elevated Troponin that peaked at 0.6 * TTE with low-normal LVSF (EF 50-55%), small LV aneurysm cannot be excluded * Interventional cardiology consulted upon arrival: cardiac cath today * Continue heparin gtt for now; patient may require chronic anticoagulation given risk for thrombus formation * Consider loop recorder prior to discharge * Already initiated on Toprol XL 25 daily * Hold on ACEI until s/p catheterization * Continue atorvastatin (new) Dysphagia/Odynophagia Symptoms occurred following choking episode on hamburger, patient symptoms has dysphagia with solid foods and was seen by Dr. Bolden - underwent EGD with dilation in 07/2020 and was started on Protonix, with improvement in symptoms at that time. * CT neck with signs of esophagitis but no significant pathology * COSMETIC SURGEON consult - recommended moist diet * GI consulted for further w/u - appreciate recs * recommend Protonix 40mg BID * will likely need motility evaluation after cath with esophageal manometry, but can consider barium swallow in the interim Elevated Troponin As stated above peaked at 0.6, with ST-depressions in inferior leads. Suspect NSTEMI vs Type II AR. * Cardiac cath today as stated above RIGHT Ankle Fracture * Closed right ankle fracture involving the RIGHT lateral malleolus * Ortho consulted, following: recommend WBAT with boot; elevate and ice - F/U in 7-10 days after discharge * Will check vitamin D level in morning * Consider DEXA as outpatient if not already done Rib Fractures * Appreciated on admission imaging * Suspect acute component s/p CPR, possibly chronic as well * No acute needs. Analgesia PRN Hypokalemia * Appreciated on admission, s/p repletion * Demonstrating normalcy this AM - continue ICU repletion protocol Vascular Dementia, Anxiety, Depression * No acute needs at this time * held Citalopram due to concern for prolonged QTc * Continue Topamax HLD * Continue atorvastatin 80 (new to this admission) * Lipid profile: TG 153, TC 178, LDL 112, HDL 35 HTN * Hold JANE-I for now until catheterization Asthma * No acute needs. Stable respiratory status, no O2 requirement * Continue home Breo Mild * Noted on physical exam and per TTE GERD * Continue Pepcid Code: FULL CODE Dispo: ICU Diet: heart-healthy/bjtw-ib-lwcw, NSS +20mEq K @80cc/hr DVT ppx: Heparin gtt (2) Left ventricular aneurysm: (3) Ankle fracture: (4) Abnormal EKG: (5) Acute hypokalemia: (6) Vascular dementia without behavioral disturbance: (7) Osteoporosis: (8) Gait disturbance: (9) Dyslipidemia: (10) Chronic cerebral ischemia: (11) Cerebral amyloid angiopathy: (12) Asthma: (13) GERD (gastroesophageal reflux disease): (14) Depression with anxiety: (15) Stumbling gait: (16) Lumbar facet joint syndrome: (17) Hypertension: (18) Dysphagia: (19) Essential tremor: (20) Aortic stenosis, mild: (21) Rib fractures: Admission and Anticipated Discharge Date Admission Date: October 19, 2020 Supervising Physician Co-Signing Physician Notes I personally examined the patient and verified all carcamo points of history and exam, discussed case, and agree with decision making with Dr Delgado upset about guero, otherwise no complaints noted. vitrals noted nad heent nc at mmm breathing unlabored no accessory muscles good effort skin no rashes no pallor or icterus cardiac arrest - likely choking --> hypoxia --> arrest. doing better now. GI for manometry in the near future. otherwise as above, stable for transfer out of ICU Subjective No acute events overnight. Does report several seconds of palpitations yesterday but tele monitoring only shows occasional PACs/PVCs. Denies fever/chills, chest pain, palpitations, SOB, cough, N/V, abdominal pain, rash. Review of Systems Review of Systems: All systems reviewed & are unremarkable except as noted in Subjective Physical Exam Physical Exam: General: A&Ox3. NAD. Cooperative. HEENT: Atraumatic, normocephalic. Pulm: CTAB A&P. -wheezes, -rales, -rhonchi. Symmetrical chest rise. No increase work of breathing. No respiratory distress. Cardiac: RRR, -mrg. Radial pulses intact and symmetrical. No LE edema. Abdominal: soft, non-tender, non-distended, BS x 4 Skin: warm, dry, no rash Results & Data Results & Data ([facility]) Vital Signs (Past 12 Hours) Vital Signs Temp Pulse Resp BP Pulse Ox 10/21/20 06:03 37.1 C 71 23 173/107 H 96 10/21/20 05:07 37.1 C 69 20 164/99 H 93 10/21/20 03:54 73 18 174/134 H 96 10/21/20 02:55 37.1 C 65 16 159/94 H 94 10/21/20 02:00 60 10/21/20 01:56 58 L 17 146/82 H 95 10/21/20 00:53 62 21 184/96 H 96 10/21/20 00:40 37.4 C 69 23 185/94 H 97 10/20/20 22:40 56 L 25 H 165/87 H 96 10/20/20 21:40 37.4 C 64 19 153/101 H 97 10/20/20 20:14 67 17 159/104 H 97 10/20/20 19:18 37.4 C 55 L 20 165/95 H 97 Resident Activity Tracking Resident Involvement: Resident Care Provided Care Provided: Adult [place] [facility] (1) Ankle fracture Encounter type: initial encounter Fracture type: closed Laterality: right Qualified Code(s): S82.891A - Other fracture of right lower leg, initial encounter for closed fracture"
--- NOTE | 2020-10-21 08:03 | Critical Care Progress Note ---
Date of Service October 21, 2020 Assessment & Plan (1) Cardiac arrest: Plan: Reason critically ill: 70-year-old female presents to the ICU following in field cardiac arrest x2 which ROSC was achieved with CPR only. Etiology unknown, but history of event suggestive of choking. Patient admitted to ICU for close monitoring and management. Neuro - [facility] ICU: Negative at time of assessment (positive inattention, negative for disorganized thinking). Possibly some delirium overnight per nursing. Vascular dementia without behavioral disturbancesappears to be at baseline fall -CT head without acute intracranial finding -rib fracture. no acute intervention -R ankle fracture. wear boot -orthopedics following, follow up as outpatient 7-10 days after hosp discharge migrainescontinue Topamax anxiety and depressionhold citalopram for prolonged qtc Cardiac - cardiac arrestas described in HPI, patient underwent CPR for 2 cardiac arrest in which ROSC was achieved at approximately 2 minutes each time. Unknown underlying dysrhythmia. Patient did not receive epi or shock -HPI suggestive of cardiac arrest 2/2 choking, either vasovagal vs respiratory arrest -cardiology and interventional cardiology consulted at admission. heparin drip. nonemergent cardiac cath left ventricular aneurysm -CTA chest revealed 1.5 cm saccular aneurysms of the left ventricular apex - cardiology consulted and will evaluate, possible ventriculogram HTN - elevated BPs ~170s/100 - continue lisinopril, defer short acting IV antihypertensives in absence of symptoms HLDcontinue Lipitor Respiratory - - satting well on room air and normal respiratory effort - follow clinically -CTA chest without PE, mild bibasilar opacities. No pneumothorax. Angulated fractures anterior left third and fourth ribs with mild sclerosis of the anterior left fourth and fifth ribs -Continuous monitoring pulse ox -Asthmacontinue Brio Ellipta, DuoNeb as needed GI - NPO since midnight while awaiting cardiac cath dysphagia - followed by [facility] GI as outpatient. consulted while inpatient for continued symptoms GERDfamotidine RENAL/LYTES - -Continue NSS w/ 20meq KCl at 80 ml/hr -Monitor BMPs and replete electrolytes as indicated - Strict I's and O's ENDO - No history of diabetes or thyroid disease HEME - H&H stable, monitor routine CBCs ID - No indication for infectious process at this time LINES/IV ACCESS - Peripheral IVs DVT PROPHYLAXIS - SCDs, heparin drip Disposition: -ICU awaiting cardiac cath, pending cath, may be possible downgrade today (2) Left ventricular aneurysm: (3) Rib fractures: (4) Abnormal EKG: (5) Acute hypokalemia: (6) Ankle fracture: (7) Vascular dementia without behavioral disturbance: (8) Dyslipidemia: (9) Asthma: (10) Dysphagia: (11) GERD (gastroesophageal reflux disease): (12) Depression with anxiety: (13) Hypertension: (14) Stumbling gait: Admission and Anticipated Discharge Date Admission Date: October 19, 2020 Supervising Physician Co-Signing Physician Notes Dr Juan was the resident-physician during care of patient. I separately evaluated patient for carcamo portions of the history and the exam. I was present during the critical portion of medical decision making, and I discussed the case with the resident. I generally agree with the findings and plan except for any additio ns/exceptions noted. Patient seen and examined at bedside. No acute distress, no adverse events ov ernight. Patient has bouts of confusion and that is why she has sitter at bedside. At the time of examination denied any chest pain, no shortness of breath, no headache, no nausea, no vomiting. She is n.p.o. as she is poor cardiac cath today. Constitutional: No acute distress HEENT: EOMI, PERRLA, arcus senilis bilaterally Respiratory system: Decreased air entry bilaterally, no wheeze, rhonchi, p ositive crackles bilateral lower lobes CVS: S1-S2 positive Abdomen: Soft, nontender, nondistended, positive bowel sounds x4 Extremities: +2 pulses bilaterally radialis/ dorsalis pedis, no cyanosis, +2 pitting edema right ankle, positive bruising at the right malleolus Neuro: Awake alert oriented to self Psych: Normal mood and affect G/U: No Sarabia --Prophylaxis VTE: Heparin drip GI: Pepcid Lines: Peripheral Diet: N.p.o. Plan: In/out: -662 urine output 2550 Patient is +774 since admission For cardiac cath today. Based on the cardiac cath finding will decide whether the patient can be downgraded to a telemetry floor Continue one-to-one for underlying delirium likely ICU/hospitalization Patient does have prolonged QTC Avoid QTC prolonging medications Keep mentation greater than 2, phosphorus greater than 3, potassium greater than 4 I have personally spent 35 minutes of critical care time in the direct management of this patient. This is a life/limb threatening event. This includes time spent evaluating patient, direct bedside care, chart review, placing orders, interpretation of diagnostic studies, discussion with consultants, patient, and/or family members regarding treatment decisions, as well as other required patient management activities. This time is exclusive of all separately billable procedures, and teaching time and separate from and in addition to any other critical care service time. Subjective Per nursing, some confusion overnight. Patient denies acute complaints. No chest pain, SOB, or pain. Review of Systems Review of Systems: Constitutional: Denies fever, chills Cardiovascular: Denies Chest pain, chest pressure Respiratory: Denies shortness of breath, cough, sputum production, difficulty breathing Gastrointestinal: Denies abdominal pain, nausea, vomiting, constipation, diarrhea Genitourinary: Denies urinary symptoms including dysuria Musculoskeletal: + R foot/ankle pain Neurological: Denies headache, focal weakness Physical Exam Physical Exam: General: A&Ox1 to person only. NAD. Cooperative. HEENT: Atraumatic, normocephalic. Neck auscultation is noisy. Pulm: Good air movement on auscultation anteriorly. Transmitted upper airway sounds. -wheezes, -rales, -rhonchi. Symmetrical chest rise. No respiratory distress. Cardiac: RRR, -mrg. No pitting LE edema, mild puffy appearance of ankles. Abdominal: Nontender, nondistended, soft. Msk: R foot/ankle swelling. TTP at L anterior ribs. Integumentary: L PIV site nonerythematous. Ecchymosis of R ankle. No rib ecchymosis noted. Results & Data Results & Data ([facility]) Vital Signs (Past 12 Hours) Vital Signs Temp Pulse Resp BP Pulse Ox 10/21/20 06:03 37.1 C 71 23 173/107 H 96 10/21/20 05:07 37.1 C 69 20 164/99 H 93 10/21/20 03:54 73 18 174/134 H 96 10/21/20 02:55 37.1 C 65 16 159/94 H 94 10/21/20 02:00 60 10/21/20 01:56 58 L 17 146/82 H 95 10/21/20 00:53 62 21 184/96 H 96 10/21/20 00:40 37.4 C 69 23 185/94 H 97 10/20/20 22:40 56 L 25 H 165/87 H 96 10/20/20 21:40 37.4 C 64 19 153/101 H 97 10/20/20 20:14 67 17 159/104 H 97 10/20/20 19:18 37.4 C 55 L 20 165/95 H 97 10/21/20 03:31 10/21/20 04:10 Resident Activity Tracking Resident Involvement: Resident Care Provided Care Provided: Adult Hospital Medicine (1) Ankle fracture Encounter type: initial encounter Fracture type: closed Laterality: right Qualified Code(s): S82.891A - Other fracture of right lower leg, initial encounter for closed fracture
[2020-10-21] MEDS: ASPIRIN 81 MG CHEW PO SCH (08:04)
[2020-10-21] MEDS: NSS + 20MEQ KCL 20 MEQ/1,000 ML BAG IV SCH (08:04)
[2020-10-21] MEDS: ATORVASTATIN 40 MG TAB PO SCH (08:05)
[2020-10-21] MEDS: TOPIRAMATE 25 MG TAB PO SCH ×2 (08:05→21:26)
[2020-10-21] MEDS: lisinopril 5 MG TAB PO SCH ×2 (08:05→21:26)
[2020-10-21] MEDS: OXYBUTYNIN CHLORIDE XL 5 MG TABCR PO SCH (08:05)
[2020-10-21] MEDS: METOPROLOL SUCC 25MG EXT REL TAB PO SCH (08:05)
[2020-10-21] MEDS: FAMOTIDINE 20 MG in SYRINGE 3 ML IV SCH ×2 (08:06→21:21)
--- NOTE | 2020-10-21 08:27 | Electrocardiogram Report ---
Test Reason : Blood Pressure : / mmHG Vent. Rate : 079 BPM Atrial Rate : 079 BPM P-R Int : 162 ms QRS Dur : 108 ms QT Int : 462 ms P-R-T Axes : 066 033 013 degrees QTc Int : 529 ms Sinus rhythm with occasional Premature ventricular complexes Incomplete right bundle branch block Prolonged QT Abnormal ECG When compared with ECG of 20-OCT-2020 06:45, Premature ventricular complexes are now Present Otherwise no significant change Confirmed by Paco Shaw ([id number]) on 10/21/2020 8:27:03 AM Referred By: REFERRED SELF Confirmed By:Paco Shaw
--- NOTE | 2020-10-21 09:50 | Cardiology Progress Note ---
Date of Service October 21, 2020 Assessment & Plan (1) Cardiac arrest: Plan: Etiology and exact nature of her cardiac arrest remains unclear. Cardiac catheterization today to exclude occlusive CAD and evaluate her LV "saccular aneurysm". Will consult electrophysiology to assess persistent long QT and potential role of ICD (if she in fact is felt to have had a cardiac arrest, which remains uncertain) Remain off citalopram while she has prolonged QT. Borderline bradycardic heart rate, continue beta-henrietta but titrate lisinopril upward for BP management. Could add amlodipine if elevated BPs persist. (2) Left ventricular aneurysm: Plan: Her history of apparent VSD repair as a teenager may explain the chest CT findings of a "saccular aneurysm" near the apex of the left ventricle, since there are no associated wall motion abnormalities to suggest associated myocardial damage (which would be the usual reason for a left ventricular aneurysm). This can be further evaluated with a left ventriculogram at the time of cardiac catheterization. (3) Hypertension: Plan: As above, titrate medications. (4) Aortic stenosis, mild: Plan: Not felt to be hemodynamically significant. (5) Vascular dementia without behavioral disturbance: Plan: (6) Rib fractures: Plan: Makes chest pain assessment difficult. Admission and Anticipated Discharge Date Admission Date: October 19, 2020 Subjective No new complaints, notes chest wall pain worse with deep inspiration (status post rib fractures). No other chest pain. No dyspnea or lightheadedness. Apparently had brief palpitations yesterday, none reported today. Telemetry showed sinus rhythm in the 80 bpm range, PVCs noted the past few days are less frequent. No dysrhythmias. Physical Exam Physical Exam: Appears comfortable. BP moderately hypertensive. Pulse 60 bpm and regular. Skin: no ecchymoses or generalized lesions. HEENT: unremarkable. Neck: no JVD or carotid bruits. Chest wall: Marked tenderness left sternal border (rib fractures on CT) lungs: clear bilaterally. Cardiac: regular rhythm with readily audible aortic closure sound, 2/6 basal stock ejection murmur rating to the carotids, no diastolic murmur. Abdomen: benign. Extremities: Mild right ankle edema, good capillary refill both feet. Neurologic: Answers simple questions appropriately but poor insight, grossly nonfocal. Results & Data ([facility]) Laboratory Results Normal electrolytes, creatinine 0.72. Diagnostic Findings ECG today showed sinus rhythm with occasional PVC, incomplete right bundle branch block, persistent anterior T wave inversions with prolonged QT interval. Compared with yesterday, PVCs are new, otherwise no change. PG Care Time/CCT Total # of Minutes Spent Total Time Spent with Patient: Total time spent is greater than 50% in coordination of care (as documented) at patient's floor/unit and/or counseling patient: Coding Level of Care Code 84098 Subseq Hosp Care Lvl 3 Diagnoses Cardiac arrest I46.9 Left ventricular aneurysm I25.3 Aortic stenosis, mild I35.0 Vascular dementia without behavioral disturbance F01.50 Rib fractures S22.49XA Hypertension I10
--- NOTE | 2020-10-21 11:37 | Gastrointestinal Consultation ---
Date of Consultation October 21, 2020 Assessment & Plan (1) Abnormal CT scan, esophagus: (2) Dysphagia: -Defer acute GI work-up at this time as patient is currently undergoing cardiac work-up and just had an EGD on 08/08/20. -Would treat with Protonix 40 mg BID. -Patient likely will require a motility evaluation with an esophageal manometry, however in the interim can obtain a barium swallow once all cardiac testing is complete. Supervising Physician Co-Signing Physician Notes I personally evaluated the patient and agree with the findings as documented by Kalyn Flynn, PAC Exam: abd: soft, nt, nd History of Present Illness Attending Physician: Andi Paniagua DO History of Present Illness Patient is a 70 yo female who initially presented to [facility] after experiencing cardiac arrest with ROSC x 2 at home. She has a PMH of vascular dementia, vitamin D deficiency, urinary incontinence, osteoporosis, impaired fasting glucose, HLD, chronic cerebral ischemia, cerebral amyloid angiopathy, asthma, aortic stenosis, essential thermor, thoracic facet syndrome, myofascial pain, GERD, depression with anxiety, HTN, & lumbar facet syndrome. Patient reportedly had been eating a hamburger and became acutely short of breath. She excused herself to the bathroom where her found her unresponsive. A CTA of the chest showed a left ventricular 1.5 cm saccular aneurysm. GI has been asked to see the patient given possible choking episode that could have prompted the cardiac arrest. She had an EGD on 08/08/2020 that indicated at tortuous esophagus. This was dilated. Patient followed up with Dr. Bolden in the office and her dysphagia had resolved. She continued Protonix. A CT scan in the hospital shows a thick-walled esophagus. Patient is off the floor presently as she is having a cardiac catheterization for further evaluation. Electrophysiology has also been asked to evaluate patient. Allergies Allergy/AdvReac Type Severity Reaction Status Date / Time aspirin Allergy Mild makes her Verified 10/18/20 22:29 sick Sulfa (Sulfonamide Allergy Unknown Unknown rxn Verified 10/18/20 22:29 Antibiotics) metoprolol AdvReac Intermediate makes her Verified 10/18/20 22:29 sick Home Medications Medication Instructions Recorded Confirmed Type alendronate 70 mg tablet 70 mg PO WEEKLY #12 tab 08/05/20 10/18/20 Rx celecoxib 200 mg capsule 200 mg PO QAM 08/07/20 10/18/20 History cholecalciferol (vitamin D3) 50 50 mcg PO QPM 08/07/20 10/18/20 History mcg (2,000 unit) capsule citalopram 40 mg tablet 40 mg PO QPM 08/07/20 10/18/20 History cyanocobalamin (vitamin B-12) 1,000 mcg PO QPM 08/07/20 10/18/20 History 1,000 mcg tablet (Vitamin B-12) fluticasone furoate 100 1 puffs INH QAM PRN 08/07/20 10/18/20 History mcg-vilanterol 25 mcg/dose inhalation powder (Breo Ellipta) multivitamin 1 tab PO QPM 08/07/20 10/18/20 History pantoprazole 40 mg tablet,delayed 40 mg PO DAILY #30 tab 08/21/20 10/18/20 Rx release (Protonix) lisinopril 5 mg tablet 5 mg PO QAM #90 tab 09/04/20 10/18/20 Rx oxybutynin chloride 15 mg 15 mg PO QAM #90 tab 10/15/20 10/18/20 Rx tablet,extended release 24 hr topiramate 25 mg tablet 25 mg PO BID 10/18/20 10/18/20 History Patient History Medical History Arrhythmia "skips a beat", old, nothing new Asymptomatic menopausal state Bronchitis Cataract Depression with anxiety Distal radius fracture Right Erosive gastropathy Esophageal abnormality tortuous esophagus Forgetfulness Hiatal hernia History of esophageal dilatation History of urinary urgency Hypertension Inflamed acrochordon Lumbar facet joint syndrome Orthostatic hypotension Osteoarthritis Stumbling gait BLE weakness Transient ischemic attack (TIA) >5 years ago, [facility] neuro Urinary incontinence Urinary tract infection hx Surgical History H/O section X 2 History of cataract surgery History of esophagogastroduodenoscopy (EGD) 08/08/20 [place] History of heart surgery at 13 years old, open heart d/t ? 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 Feels Safe at Home: Yes Safety Concerns: Feels Safe At This Time Childhood Exposure to Second-Hand Smoke: Yes caffeine: Yes Dental Care, Regularly: No Physical Activity Frequency: 3-4 Times per Week Seatbelt Use: always Sunscreen Use: No Assistive Devices: Special Shoe Review of Systems Review of Systems: Unable to evaluate at the time of Kalyn Flynn PA-C's visit as patient is having a cardiac catheterization Physical Exam Physical Exam: Unable to evaluate at the time of Kalyn Flynn PA-C's visit as patient is having a cardiac catheterization Results & Data ([facility]) Vital Signs (Past 12 Hours) Vital Signs Temp Pulse Resp BP Pulse Ox 10/21/20 08:00 60 20 97 10/21/20 07:30 59 L 19 94 10/21/20 07:00 60 20 94 10/21/20 06:03 37.1 C 71 23 173/107 H 96 10/21/20 05:07 37.1 C 69 20 164/99 H 93 10/21/20 03:54 73 18 174/134 H 96 10/21/20 02:55 37.1 C 65 16 159/94 H 94 10/21/20 02:00 60 10/21/20 01:56 58 L 17 146/82 H 95 10/21/20 00:53 62 21 184/96 H 96 10/21/20 00:40 37.4 C 69 23 185/94 H 97 PG Care Time/CCT Total # of Minutes Spent Total Time Spent with Patient: Total time spent is greater than 50% in coordination of care (as documented) at patient's floor/unit and/or counseling patient: Coding Level of Care Code 05635 Initial Inpt Care Lvl [address] scan, esophagus R93.3 Dysphagia R13.10
[2020-10-21] MEDS ORDERED: MIDAZOLAM HCL 1 MG/ML 2ML VIAL ONE (11:59)
[2020-10-21] MEDS ORDERED: fentaNYL citrate 100 MCG/2 ML VIAL ONE (11:59)
[2020-10-21] MEDS ORDERED: HEPARIN (PORCINE) 1000 UNIT/ML 10 ML (CATH LAB USE ONLY) ONE (11:59)
[2020-10-21] MEDS ORDERED: NITROGLYCERIN/D5W 100MCG/ML 20ML SYR ONE (12:00)
--- NOTE | 2020-10-21 13:20 | Cardiac Catheterization ---
[facility] Data: Filler Machine Operator Cardiac Status Clinical evaluation leading to the procedure CAD Presenation: Non STEMI Diagnostic Physicians Name: Mil Brownlee MD Closure Device Recommendations: Medical Therapy and/or Counseling Cardiac Cath Procedure Full Procedure Date October 21, 2020 Pre-Procedure Diagnosis Pre-Procedure Diagnosis: Non STEMI AUC Score AUC Score: 7 Post-Procedure Diagnosis Post-Procedure Diagnosis: Mild CAD Procedure(s) Performed Procedure(s) Performed: Coronary Angiography Stitch Cleaner Mil Brownlee MD Estimated Blood Loss Estimated Blood Loss: 5cc Summary of Findings Cardiac catheterization Indication: PEA arrest; elevated troponin Principal thread grinder tool: Mil Brownlee MD, [facility], [facility] Referring physician: Dr. Shaw Patient was brought to the cardiac Filler Machine Operator in the fasting state and connected to real-time hemodynamic electrical and respiratory monitoring 6 Salvadorean sheath was secured into the right common femoral artery after unsuccessful attempt at cannulating the right radial artery 6 Salvadorean JR4 was used for right coronary angiography An AL-1 catheter was used for left coronary angiography Hemodynamics Aortic pressure 157/84 Multiple attempts at prolapsing a pigtail catheter across aortic valve was unsuccessful and for that reason left ventricle pressures were not obtained Coronary angiography Right coronary angiography The right coronary artery and the left circumflex, of the same ostium and the right coronary sinus The right coronary artery is a small nondominant vessel with mild luminal irregularities The left circumflex is a large-caliber vessel The proximal to mid the distal circumflex have mild luminal irregularities There are 3 obtuse marginal branches and the PDA have mild luminal irregularities Left Coronary angiography The left main is of normal caliber without stenosis it gives off a large LAD and the ramus intermedius artery The proximal LAD is free of disease It gives off a large diagonal branch that is without disease The mid and distal LAD are free of disease The ramus intermedius is a moderate-sized vessel without stenosis. 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 Respectfully Mil Brownlee MD, [facility], [facility] Hemodynamics Rest Ao:: 157/84 Final Ao: 157/84 LV: N/A Recommendations Recommendations: Medical Therapy and/or Counseling Radiation Exposure (mGy) 98.58 Contrast (mls) 100 Procedural Complication(s) None I attest to the content of the Intraoperative Record and any orders documented therein. Any exceptions are noted below. PG Care Time/CCT Total # of Minutes Spent Total Time Spent with Patient: Total time spent is greater than 50% in coordination of care (as documented) at patient's floor/unit and/or counseling patient:
[2020-10-21] MEDS ORDERED: HALOPERIDOL LACTATE 5 MG/ML 1 ML VIAL ONE (14:22)
[2020-10-21] MEDS ORDERED: HALOPERIDOL LACTATE 5 MG/ML 1 ML VIAL IV STA (14:34)
[2020-10-21] MEDS: SODIUM CHLORIDE 0.9% 1000ML 1,000 ML IV SCH (14:36)
[2020-10-21] MEDS ORDERED: MAGNESIUM SULFATE / D5W 1 GM/100 ML BAG IV ONE (15:00)
[2020-10-21] MEDS: POTASSIUM CHLORIDE / WTR 10 MEQ/100 ML PLCT IV SCH ×2 (15:38→17:00)
[2020-10-21] MEDS ORDERED: ACETAMINOPHEN 325 MG TAB ONE (16:17)
--- NOTE | 2020-10-21 17:06 | Billing Data ---
Date of Service October 21, 2020 Coding Level of Care Code 30317 Subseq Hosp Care Lvl 3 Time Spent (min) 35
--- NOTE | 2020-10-21 17:17 | Cardiology Consultation ---
Date of Consultation October 21, 2020 Assessment & Plan (1) Cardiac arrest: 1. Cardiac arrest: I suspect that the mechanism of the patient's cardiac arrest was not an arrhythmia. It seems likely that she became progressively more hypoxic due to airway obstruction and suffered a PEA arrest. A malignant ventricular arrhythmias likely would have produced syncope prior to cyanosis as described by her . Additionally, there was no evidence of arrhythmia and despite the application of an AED, no shock was advised. She does appear to have some substrate for malignant ventricular arrhythmias however. She does have a prolonged QT interval. There do not appear to be old EKGs upon which to compare. Citalopram was discontinued ( and she was on a relatively high dose). she is also known to have had cardiac surgery and a prior VSD repair could be focus for reentrant or focal arrhythmias. However, she did not have symptoms of malignant ventricular arrhythmias leading up to this event. And, as noted above, the event itself seems almost certainly precipitated by progressive hypoxia due to airway obstruction. At this point I would not recommend an ICD. With discontinuation of citalopram I am hopeful that her QT will improve. If she continues to have QT prolongation at the time of discharge ambulatory outpatient monitoring can be considered. I would recommend a 30 day event monitor with follow-up in our clinic. If her QT interval normalized is no additional follow-up is necessary. History of Present Illness Reason for Consultation: Cardiac arrest Requesting Physician: Paco Shaw Attending Physician: Andi Paniagua DO History of Present Illness the patient is a 70-year-old woman with a remote history of a ventricular septal defect and repair at age 13. two days ago the patient was witnessed to have a choking episode while eating a hamburger. It seems that she does have a history of dysphagia and recently underwent an esophageal dilation. Her was present for the event and notice that she was speaking while eating a hamburger and again have some difficulty breathing. She attempted to use his COPD inhaler, but could not inhale enough to use the device. She continued to have some difficulty with breathing and reportedly wanted to go to the bathroom to urinate. Her accompanied her and noticed that she was becoming progressively cyanotic. He attempted to contact EMS, but his phone malfunction. He left the bathroom briefly in order to get help in when he returned the patient was unconscious. he was able to perform CPR and rescue breathing briefly before the battery container tester arrived. Condition improved at that point but according to the patient her level of consciousness was not normal. When she was placed into the ambulance to seem that she again lost consciousness and CPR was resumed EN route to the hospital. Patient did not receive epinephrine or any defibrillation. The patient provided some history, but does not have full recollection of these events. Her main complaint this morning with simply chest pain at the site of chest compressions. According to her she is generally active and does not complain of significant dizziness or lightheadedness. He cannot recall any other episodes of syncope. Allergies Allergy/AdvReac Type Severity Reaction Status Date / Time aspirin Allergy Mild makes her Verified 10/18/20 22:29 sick Sulfa (Sulfonamide Allergy Unknown Unknown rxn Verified 10/18/20 22:29 Antibiotics) metoprolol AdvReac Intermediate makes her Verified 10/18/20 22:29 sick Home Medications Medication Instructions Recorded Confirmed Type alendronate 70 mg tablet 70 mg PO WEEKLY #12 tab 08/05/20 10/18/20 Rx celecoxib 200 mg capsule 200 mg PO QAM 08/07/20 10/18/20 History cholecalciferol (vitamin D3) 50 50 mcg PO QPM 08/07/20 10/18/20 History mcg (2,000 unit) capsule citalopram 40 mg tablet 40 mg PO QPM 08/07/20 10/18/20 History cyanocobalamin (vitamin B-12) 1,000 mcg PO QPM 08/07/20 10/18/20 History 1,000 mcg tablet (Vitamin B-12) fluticasone furoate 100 1 puffs INH QAM PRN 08/07/20 10/18/20 History mcg-vilanterol 25 mcg/dose inhalation powder (Breo Ellipta) multivitamin 1 tab PO QPM 08/07/20 10/18/20 History pantoprazole 40 mg tablet,delayed 40 mg PO DAILY #30 tab 08/21/20 10/18/20 Rx release (Protonix) lisinopril 5 mg tablet 5 mg PO QAM #90 tab 09/04/20 10/18/20 Rx oxybutynin chloride 15 mg 15 mg PO QAM #90 tab 10/15/20 10/18/20 Rx tablet,extended release 24 hr topiramate 25 mg tablet 25 mg PO BID 10/18/20 10/18/20 History Patient History Medical History Arrhythmia "skips a beat", old, nothing new Asymptomatic menopausal state Bronchitis Cataract Depression with anxiety Distal radius fracture Right Erosive gastropathy Esophageal abnormality tortuous esophagus Forgetfulness Hiatal hernia History of esophageal dilatation History of urinary urgency Hypertension Inflamed acrochordon Lumbar facet joint syndrome Orthostatic hypotension Osteoarthritis Stumbling gait BLE weakness Transient ischemic attack (TIA) >5 years ago, [facility] Urinary incontinence Urinary tract infection hx Surgical History H/O section X 2 History of cataract surgery History of esophagogastroduodenoscopy (EGD) 08/08/20 [place] History of heart surgery at 13 years old, open heart d/t ? 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 Mood affect appear normal. She answered all questions , But was confused at times. HEENT: Sclerae are anicteric. Pupils are equal and reactive to light and accommodation. Extraocular movements were intact. Neuro: Cranial nerves intact Lungs: Respiratory effort was normal. Cardiac: The rhythm was regular. S1 and S2 were normal. There are no murmurs on examination. The PMI was not markedly displaced on palpation. Extremities: Patient has bilateral radial pulses that are equal in intensity. There is no evidence cyanosis or clubbing. Small ecchymosis at the right radial access site without significant hematoma. Good right hand perfusion. No hematoma, ecchymosis or bleeding at the right femoral access site.There was no evidence of significant peripheral edema bilaterally. Skin: There are no rashes noted on examination today. Results & Data ([facility]) Vital Signs (Past 12 Hours) Vital Signs Temp Pulse Pulse Resp BP BP Pulse Ox 10/21/20 15:30 62 14 97 10/21/20 15:00 68 19 173/99 H 97 10/21/20 14:45 70 16 97 10/21/20 14:32 71 17 97 10/21/20 14:15 88 27 H 152/110 H 97 10/21/20 14:00 52 L 14 146/115 H 96 10/21/20 13:45 54 L 13 146/87 H 96 10/21/20 13:30 59 L 18 149/81 H 97 10/21/20 13:15 56 L 16 157/80 H 96 10/21/20 13:00 54 L 16 151/79 H 95 10/21/20 12:54 37.2 C 58 L 16 167/117 H 96 10/21/20 12:45 61 20 167/117 H 100 10/21/20 12:42 64 23 10/21/20 12:03 37.2 C 10/21/20 09:54 59 L 16 156/83 H 95 10/21/20 08:54 56 L 14 151/84 H 97 10/21/20 08:00 60 20 97 10/21/20 07:30 59 L 19 94 10/21/20 07:00 60 20 94 10/21/20 06:03 37.1 C 71 23 173/107 H 96 10/21/20 05:07 37.1 C 69 20 164/99 H 93 Laboratory Results Abnormal Lab Results 10/20/20 10/20/20 10/21/20 04:05 20:04 03:26 WBC RBC Hgb Hct MCV MCH MCHC RDW Std Deviation RDW Coeff of [place] Plt Count MPV Immature Gran % (Auto) Neut % (Auto) Lymph % (Auto) [place] % (Auto) Eos % (Auto) Baso % (Auto) Neut # (Auto) Lymph # (Auto) [place] # (Auto) Eos # (Auto) Baso # (Auto) Immature Gran # (Auto) PT INR APTT 43.0 H PTT Ratio 1.6 Sodium 142 Potassium Chloride 112 H Carbon Dioxide 26 Anion Gap 4.0 BUN 5 L Creatinine 0.72 Est Cr Clr Drug Dosing 71.2 Est GFR ( Amer) 97.0 Est GFR (Non-Af Amer) 83.7 BUN/Creatinine Ratio 7.3 L Glucose 118 H Calcium 8.5 Phosphorus 3.0 Magnesium 25-OH Vitamin D Total 46.0 10/21/20 10/21/20 10/21/20 03:26 03:31 04:10 WBC 9.87 RBC 4.06 L Hgb 12.8 Hct 38.8 MCV 95.6 MCH 31.5 MCHC 33.0 RDW Std Deviation 47.2 H RDW Coeff of [place] 13.5 Plt Count 248 MPV 11.1 H Immature Gran % (Auto) 0.2 Neut % (Auto) 66.6 Lymph % (Auto) 22.0 [place] % (Auto) 9.2 Eos % (Auto) 1.6 Baso % (Auto) 0.4 Neut # (Auto) 6.57 H Lymph # (Auto) 2.17 [place] # (Auto) 0.91 H Eos # (Auto) 0.16 Baso # (Auto) 0.04 Immature Gran # (Auto) 0.02 PT Cancelled INR Cancelled APTT Cancelled PTT Ratio Cancelled Sodium Potassium 3.9 Chloride Carbon Dioxide Anion Gap BUN Creatinine Est Cr Clr Drug Dosing Est GFR ( Amer) Est GFR (Non-Af Amer) BUN/Creatinine Ratio Glucose Calcium Phosphorus Magnesium 2.0 25-OH Vitamin D Total 10/21/20 04:10 WBC RBC Hgb Hct MCV MCH MCHC RDW Std Deviation RDW Coeff of [place] Plt Count MPV Immature Gran % (Auto) Neut % (Auto) Lymph % (Auto) [place] % (Auto) Eos % (Auto) Baso % (Auto) Neut # (Auto) Lymph # (Auto) [place] # (Auto) Eos # (Auto) Baso # (Auto) Immature Gran # (Auto) PT 10.3 INR 1.0 APTT 47.6 H* PTT Ratio 1.8 Sodium Potassium Chloride Carbon Dioxide Anion Gap BUN Creatinine Est Cr Clr Drug Dosing Est GFR ( Amer) Est GFR (Non-Af Amer) BUN/Creatinine Ratio Glucose Calcium Phosphorus Magnesium 25-OH Vitamin D Total Diagnostic Findings Echocardiogram performed on 10/19/2020 revealed preserved LV systolic function wall motion. No evidence of aneurysm. Mild aortic stenosis. Cardiac catheterization performed today did not reveal any obstructive coronary disease or evidence of acute coronary syndrome. Left ventriculography could not be performed. PG Care Time/CCT Total # of Minutes Spent Total Time Spent with Patient: Total time spent is greater than 50% in coordination of care (as documented) at patient's floor/unit and/or counseling patient: Coding Level of Care Code 16035 Initial Inpt Care Lvl 3 Diagnoses Cardiac arrest I46.9
--- NOTE | 2020-10-21 17:52 | Billing Data ---
Date of Service October 21, 2020 Coding Level of Care Code 54848 Subseq Hosp Care Lvl 2
[2020-10-21] MEDS ORDERED: MoRPHine SULFATE 2 MG/ML CARP IV STA (18:04)
[2020-10-21] MEDS ORDERED: MoRPHine SULFATE 2 MG/ML CARP ONE (18:06)
[2020-10-21] MEDS: ENOXAPARIN INJ 40 MG/0.4 ML SYR SQ SCH (18:13)
[2020-10-21] MEDS ORDERED: LORazepam 2 MG/4 ML VIAL IV STA (18:52)
[2020-10-21] MEDS ORDERED: LORazepam 2 MG/4 ML VIAL ONE (18:53)
[2020-10-21] MEDS ORDERED: STAT IV Infusion **Titration per Protocol STA (18:59)
[2020-10-21] MEDS: CHOLECALCIFEROL 1,000 UNITS 25 MCG TAB PO SCH (21:16)
[2020-10-21] MEDS: MULTIVITAMIN TAB PO SCH (21:17)
[2020-10-21] MEDS: CYANOCOBALAMIN 500 MCG TABLET (VITAMIN B-12) PO SCH (21:17)
[2020-10-22] MEDS ORDERED: LORazepam 2 MG/4 ML VIAL IV STA (03:41)
[2020-10-22] MEDS: SODIUM CHLORIDE 0.9% 1000ML 1,000 ML IV SCH (03:44)
[2020-10-22 05:06] LABS: Partial Thromboplastin Ratio 0.9; Partial Thromboplastin Time 22.5 Seconds (21.0-31.0)
[2020-10-22 05:40] LABS: Basophils # (auto) 0.02 K/uL (0-0.2); Basophils % (auto) 0.2 %; Eosinophils # (auto) 0.06 K/uL (0-0.5); Eosinophils % (auto) 0.6 %; Hematocrit (blood only) 37.1 % (37-47); Hemoglobin 12.2 g/dL (12.0-16.0); Immature Granulocytes # (auto) 0.03 K/uL (0.00-0.02); Immature Granulocytes % (auto) 0.3 %; Lymphocytes # (auto) 1.25 K/uL (1.2-3.4); Lymphocytes % (auto) 12.8 %; Mean Corpuscular Hgb Conc 32.9 g/dL (32-36); Mean Corpuscular Volume 94.4 fL (80-100); Mean Platelet Volume 11.1 fL (7.4-10.4); Monocytes # (auto) 0.97 K/uL (0.11-0.59); Monocytes % (auto) 9.9 %; Neutrophils # (auto) 7.42 K/uL (1.4-6.5); Neutrophils % (auto) 76.2 %; Platelet Count 214 K/uL (130-400); Platelet Estimate Normal (Normal); RDW Coefficient of Variation 13.3 % (11.5-14.5); RDW Standard Deviation 46.6 fL (36.4-46.3); Red Blood Count 3.93 M/uL (4.2-5.4); White Blood Count 9.75 K/uL (4.8-10.8)
[2020-10-22 05:42] LABS: BUN Creatinine Ratio 11.7 (10-20); Calcium 8.2 mg/dl (8.5-10.1); Creatinine Clr Calc Pharmacy 83.6 ml/min; Est GFR (Non-African American) 90.6 ml/min; Magnesium 2.2 mg/dl (1.8-2.4); Potassium 3.6 mmol/L (3.5-5.1)
[2020-10-22 05:46] LABS: Phosphorus 2.6 mg/dl (2.5-4.9)
[2020-10-22] MEDS: DEXMEDETOMIDINE HCL 200 MCG in SODIUM CHLORIDE 0.9% 48 ML IV SCH ×2 (06:26→09:09)
[2020-10-22] MEDS: POTASSIUM CHLORIDE / WTR 10 MEQ/100 ML PLCT IV SCH ×3 (06:31→09:23)
[2020-10-22] MEDS: FAMOTIDINE 20 MG in SYRINGE 3 ML IV SCH (07:48)
--- NOTE | 2020-10-22 07:56 | Critical Care Progress Note ---
Date of Service October 22, 2020 Assessment & Plan (1) Cardiac arrest: Plan: Reason critically ill: 70-year-old female presents to the ICU following in field cardiac arrest x2 which ROSC was achieved with CPR only. Etiology unknown, but history of event suggestive of choking. Patient was admitted to ICU for close monitoring and management, complicated by delirium. Neuro - delirium on dementia (vascular) - exacerbated after cardiac cath procedure yesterday likely from analgesics - received 2 mg IV Ativan at 7pm and 4am - appears quite sedated this AM - future one-time doses of Ativan will be lowered to 0.5mg q8hprn - no further brain imaging at this time, but will reconsider if develops focal neuro deficits fall -CT head without acute intracranial finding -rib fracture. no acute intervention -R ankle fracture. wear boot -orthopedics following, follow up as outpatient 7-10 days after hosp discharge migrainescontinue Topamax anxiety and depressionhold citalopram for prolonged qtc. cardiology recommends continuing to hold Cardiac - cardiac arrestas described in HPI, patient underwent CPR for 2 cardiac arrest in which ROSC was achieved at approximately 2 minutes each time. Unknown underlying dysrhythmia. Patient did not receive epi or shock -HPI suggestive of cardiac arrest 2/2 choking, either vasovagal vs respiratory arrest -cardiology and interventional cardiology consulted at admission. heparin drip. nonemergent cardiac cath. result: mild CAD left ventricular aneurysm -CTA chest revealed possible 1.5 cm saccular aneurysm of the left ventricular apex - unable to perform ventriculogram during cardiac cath due to technical difficulties - may also be leftover from distant VSD repair HTN - elevated BPs mostly 150s-160s/80s-90s, asymptomatic - continue lisinopril when tolerated, defer short acting IV antihypertensives in absence of symptoms HLDcontinue Lipitor Respiratory - - satting well on room air and normal respiratory effort; follow clinically. Continuous monitoring pulse ox. - CTA chest without PE, mild bibasilar opacities. No pneumothorax. Angulated fractures anterior left third and fourth ribs with mild sclerosis of the anterior left fourth and fifth ribs -Asthmacontinue Brio Ellipta, DuoNeb as needed GI - diet restarted, tolerating minimally because of delirium dysphagia - followed by [facility] as outpatient. consulted while inpatient for continued symptoms GERDfamotidine. discontinued protonix RENAL/LYTES - -IV fluids discontinued -K 3.6, phos 2.6, Mg 2.2. - repleted w/ 30meq of KCl rider - also repleting w/ 15mmol KPhos -Monitor BMPs and electrolytes - 24 hour 3.1L in 2L out. continue monitoring ENDO - No history of diabetes or thyroid disease HEME - H&H stable, monitor routine CBCs ID - - 37.6C low grade temp noted, will follow - will check UA and cxr - UA w/ 2+ ketones, 3+ blood, 1+ leuk esterase, 10-30 wbc, >30 rbc, 5-10 hyaline casts, 20-30 epithelial cells. Negative for bacteria. - in context of waxing and waning mentation course, more likely hospital delirium than AMS from UTI. jack sample; consider contamination - cxr unchanged from prior, has persistent L basilar opacity LINES/IV ACCESS - Peripheral IVs DVT PROPHYLAXIS - SCDs, Lovenox Disposition: - stable for downgrade from ICU (2) Left ventricular aneurysm: (3) Rib fractures: (4) Abnormal EKG: (5) Acute hypokalemia: (6) Ankle fracture: (7) Vascular dementia without behavioral disturbance: (8) Dyslipidemia: (9) Asthma: (10) Dysphagia: (11) GERD (gastroesophageal reflux disease): (12) Depression with anxiety: (13) Hypertension: (14) Stumbling gait: Plan: Dr Juan was the resident-physician during care of patient. I separately evaluated patient for [place] portions of the history and the exam. I was present during the critical portion of medical decision making, and I discussed the case with the resident. I generally agree with the findings and plan except for any additions/exceptions noted. Patient seen and examined at bedside. Patient had gotten total of 4 mg of Ativan in the in the last 12 hours. Last dose being 3:47 AM. Patient was very somnolent at the time of examination. Vitals were within normal limit. Has been afebrile. Saturating well on room air. Constitutional: No acute distress HEENT: EOMI, PERRLA, arcus senilis bilaterally Respiratory system: Decreased air entry bilaterally, no wheeze, rhonchi, positive crackles bilateral lower lobes CVS: S1-S2 positive Abdomen: Soft, nontender, nondistended, positive bowel sounds x4 Extremities: +2 pulses bilaterally radialis/ dorsalis pedis, no cyanosis, +2 pitting edema right ankle, positive bruising at the right malleolus Neuro: Somnolent likely from Ativan Psych: Unable to assess G/U: Positive Jack --Acute delirium Likely from being in the hospital Continue with 1 is to 1 sitter Frequent reorientation will be beneficial --Prophylaxis VTE: Heparin drip GI: Pepcid Lines: Peripheral Diet: Cardiac Plan: In/out: +157, urine output 1300 For delirium I would like to avoid any benzodiazepines but unfortunately patient's QTC is very prolonged and I cannot give her haloperidol or any other antipsychotics Aripiprazole can be thought if need be Later during the day patient did get better. She ate well. Avoid QTC prolonging medications Keep mentation greater than 2, phosphorus greater than 3, potassium greater than 4 Patient hemodynamically stable to be downgraded to a medical floor. Please note the above document was generated using voice recognition software. It may contain grammatical, syntax or spelling errors.Any formal questions or concerns about the content, text or information contained within the body of this dictation should be directly addressed to the provider for clarification. Admission and Anticipated Discharge Date Admission Date: October 19, 2020 Subjective Overnight, patient received 2 doses of 2mg IV Ativan for delirium at 7pm and 4am. These worked well. This morning patient is sleepy/drowsy. History limited. 10:30AM recheck: patient denies any pain or other complaints. No chest pain, SOB, headache, numbness/tingling, abdominal pain. Denies other complaints. Review of Systems Review of Systems: All systems reviewed & are unremarkable except as noted in HPI & below (Patient denies other complaints. However, ROS limited because of delirium.) Physical Exam Physical Exam: General: 8:00AM: somnolent. 10:30AM: A&Ox1. NAD. Sleepy but arousable. 3PM: Patient is awake. She know her name and who her and children are. HEENT: Atraumatic, normocephalic. Pulm: CTAB anteriorly. Decreased air movement diffusely. Bibasilar inspiratory crackles. Cardiac: RRR, -mrg. 1+ BLE. Abdominal: Nondistended, soft. Nontender. Musculoskeletal: Nontender w/ palpation of L anterior ribs. Integumentary: Bruising at R lateral ankle, unchanged from yesterday's exam. Results & Data Results & Data ([facility]) Vital Signs (Past 12 Hours) Vital Signs Temp Pulse Resp BP Pulse Ox 10/22/20 06:34 36.9 C 10/22/20 05:55 67 21 150/74 H 97 10/22/20 04:55 59 L 20 151/81 H 97 10/22/20 04:01 59 L 10/22/20 03:55 37.6 C H 61 22 161/92 H 94 10/22/20 00:55 58 L 17 142/108 H 96 10/21/20 23:55 37.3 C 57 L 15 139/66 96 10/21/20 23:20 59 L 10/21/20 22:55 37.3 C 60 17 147/96 H 96 10/21/20 21:55 59 L 16 169/74 H 97 10/21/20 20:55 59 L 16 154/90 H 98 10/21/20 20:25 59 L 17 169/87 H 96 10/21/20 19:55 60 16 172/82 H 97 10/22/20 04:23 10/22/20 04:23 Resident Activity Tracking Resident Involvement: Resident Care Provided Care Provided: Adult Hospital Medicine (1) Ankle fracture Encounter type: initial encounter Fracture type: closed Laterality: right Qualified Code(s): S82.891A - Other fracture of right lower leg, initial encounter for closed fracture
--- NOTE | 2020-10-22 08:09 | Cardiology Progress Note ---
Date of Service October 22, 2020 Assessment & Plan (1) Cardiac arrest: Plan: Etiology and exact nature of her cardiac arrest remains unclear, however Dr. Horn's note after interview with the patient's strongly suggests that she could've had a hypoxic arrest after a choking episode. See his full consultation, no need for ICD at this time. Continue low-dose metoprolol to reduce tendency to ventricular ectopy. No evidence for substantial CAD, making ischemic arrest unlikely. Would increase activity as tolerated, work-up of various anomalies listed below could continue as outpatient, if she does well she could potentially be discharged tomorrow (from my standpoint). 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 Would be reasonable for prognostic purposes to further characterize, recommend obtaining CT angiogram at [facility] to evaluate course of vessel. If this is high risk variant, would then have discussion as to risks/benefits of repair given the patient's age and comorbidities. (3) Left ventricular aneurysm: Plan: Left ventriculogram unable to be performed. In the absence of occlusive coronary disease or evidence of transmural myocardial infarction, still suspect that this is actually a defect remaining after her ventricular septal repair. This could also be better characterized at the time of her CT angiogram at [facility]. Would not anticoagulate given absence of evidence for diminished/disturbed flow in the left ventricle. Would continue aspirin. (4) Nonocclusive coronary atherosclerosis of [place] coronary artery: Plan: Aspirin and statin. Reasonable to continue low-dose beta-henrietta as noted. (5) Long QT interval: Plan: This may be a postarrest phenomenon exacerbated by fairly high-dose citalopram. QTc is improving off citalopram, if this normalizes over time no further work-up necessary. Admission and Anticipated Discharge Date Admission Date: October 19, 2020 Subjective Patient sleeping at the time of my evaluation, appears comfortable. She had some confusion and received lorazepam several times in the past 24 hours for agitation. Nursing notes that she had not complained of any chest pain, dyspnea, or other complaints. Cardiac catheterization showed anomalous left circumflex coming off the right coronary sinus. Mild coronary artery disease of this anomalous vessel, otherwise no significant disease. Left ventriculogram not performed due to technical challenges. Physical Exam Physical Exam: Appears comfortable. BP moderately hypertensive. Pulse 68 bpm and regular. Skin: no ecchymoses or generalized lesions. HEENT: unremarkable. Neck: no JVD or carotid bruits. Chest wall: Previously noted tenderness left sternal border (rib fractures on CT) lungs: clear bilaterally. Cardiac: regular rhythm with readily audible aortic closure sound, 2/6 basal stock ejection murmur rating to the carotids, no diastolic murmur. Abdomen: benign. Extremities: Mild right ankle edema, good capillary refill both feet. Right wrist cath site benign. Intact radial pulse with good right hand capillary refill. Neurologic: grossly nonfocal. Results & Data ([facility]) Laboratory Results Normal electrolytes, BUN 7, creatinine 0.6. Diagnostic Findings ECG today showed sinus rhythm at 67 bpm, persistent anterior T wave inversions, and prolonged QTC. Compared with yesterday, PVCs no longer present. 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
[2020-10-22] MEDS ORDERED: POTASSIUM PHOS 3 MMOL/1 ML INFUSION IV STA (08:20)
[2020-10-22] MEDS ORDERED: POTASSIUM PHOSPHATE 15 MMOL in SODIUM CHLORIDE 0.9% 250 ML IV ONE (08:30)
--- NOTE | 2020-10-22 09:26 | Hospitalist Progress Note ---
Date of Service October 22, 2020 Assessment & Plan (1) Cardiac arrest: Plan: Gill Hall is a 70yo female with PMHx significant for hypertension, hyperlipidemia, vascular dementia, anxiety, depression, asthma, migraines who presented to [facility] following cardiac arrest in the field with subsequent ROSC x2. Upon her arrival here, chest imaging demonstrated a left ventricular saccular aneurysm. She currently remains in the ICU for close monitoring of delirium and prolonged QTc after cardiac catheterization on 10/21. Cardiac Arrest, s/p ROSC; Left Ventricular Aneurysm; mild CAD S/p CPR x 2 in the field with achievement of ROSC (did not receive shock or epi, amio) -- Unknown underlying rhythm that prompted this. ?Malignant arrhythmia vs. profound bradycardia from vaso-vagal response, may have been triggered by choking episode * Has not required pressure or respiratory support * ECG demonstrating ST-depressions in the inferior leads with mildly elevated Troponin that peaked at 0.6 * TTE with low-normal LVSF (EF 50-55%), small LV aneurysm cannot be excluded * Interventional cardiology consulted upon arrival: cardiac cath on 10/21 with mild CAD * Cardiology on board - appreciate recs * plan for further work-up as outpatient * continue Aspirin/Atorvastatin/Lisinopril/Metoprolol at current doses for now Delirium Likely hospital-induced delirium on chronic vascular dementia. * QTc improved today at 507 * avoid Haldol and other QTc-prolonging medications for delirium * Morphine/Ativan PRN for agitation * care per ICU Dysphagia/Odynophagia Symptoms occurred following choking episode on hamburger, patient symptoms has dysphagia with solid foods and was seen by Dr. Bolden - underwent EGD with dilation in 07/2020 and was started on Protonix, with improvement in symptoms at that time. * CT neck with signs of esophagitis but no significant pathology * PRODUCTION TECHNOLOGIST consult - recommended moist diet * GI consulted for further w/u - appreciate recs * recommend Protonix 40mg BID * will likely need motility evaluation after cath with esophageal manometry, but can consider barium swallow in the interim Elevated Troponin As stated above peaked at 0.6, with ST-depressions in inferior leads. Cardiac cath on 10/21 with mild CAD. No chest pain. Likely Type II MD (demand ischemia). * no further monitoring necessary RIGHT Ankle Fracture * Closed right ankle fracture involving the RIGHT lateral malleolus * Ortho consulted, following: recommend WBAT with boot; elevate and ice * F/U in 7-10 days after discharge * Consider DEXA as outpatient if not already done Rib Fractures * Appreciated on admission imaging * Suspect acute component s/p CPR, possibly chronic as well * No acute needs. Analgesia PRN Vascular Dementia, Anxiety, Depression * No acute needs at this time * held Citalopram due to concern for prolonged QTc * Continue Topamax HLD * Continue atorvastatin 80 (new to this admission) * Lipid profile: TG 153, TC 178, LDL 112, HDL 35 HTN * Continue JANE-I/BB Asthma * No acute needs. Stable respiratory status, no O2 requirement * Continue home Breo Mild * Noted on physical exam and per TTE GERD * Continue Pepcid Code: FULL CODE Dispo: ICU Diet: heart-healthy/dqvo-dq-cthq, NSS @75cc/hr DVT ppx: Lovenox 40mg SQ Q24H (2) Left ventricular aneurysm: (3) Ankle fracture: (4) Abnormal EKG: (5) Acute hypokalemia: (6) Vascular dementia without behavioral disturbance: (7) Osteoporosis: (8) Gait disturbance: (9) Dyslipidemia: (10) Chronic cerebral ischemia: (11) Cerebral amyloid angiopathy: (12) Asthma: (13) GERD (gastroesophageal reflux disease): (14) Depression with anxiety: (15) Stumbling gait: (16) Lumbar facet joint syndrome: (17) Hypertension: (18) Dysphagia: (19) Essential tremor: (20) Aortic stenosis, mild: (21) Rib fractures: Admission and Anticipated Discharge Date Admission Date: October 19, 2020 Supervising Physician Co-Signing Physician Notes I personally examined the patient and verified all carcamo points of history and exam, discussed case, and agree with decision making with Dr Delgado Still overall quite confused, while HPI is of questionable veracity, she denies any pain or shortness of breath, no abdominal pain. vitrals noted nad heent nc at mmm breathing unlabored no accessory muscles good effort skin no rashes no pallor or icterus cardio is regular without rubs murmurs or gallops, lungs clear to auscultation bilaterally no rales rhonchi wheezes, abdomen soft nondistended nontender, extremities without cyanosis clubbing, no calf tenderness, skin without erythema. cardiac arrest - likely choking --> hypoxia --> arrest. In this respect doing better now. Does appear to have deliriumprobably multifactorial metabolic encephalopathy related to hospitalization/arrest/sedation for procedures/etc.follow for any signs or symptoms of infection given low-grade temperature, but nothing else appears to be at play obviously infectious roberts, nothing overtly metabolic going on, so most likely environmental and medication related. Supportive care. PT/OT eval and treat. Subjective Patient received Morphine 1mg IV x1 and Ativan 2mg IV x2 overnight for agitation 2/2 delirium - was kept in the ICU for monitoring. She has been sleeping since the second dose of Ativan, difficult to arouse, but hemodynamically stable. This morning the patient is sleeping and I am unable to wake her. HPI/ROS unattainable due to current status. Review of Systems Review of Systems: Unobtainable due to cognitive status Physical Exam Physical Exam: General: NAD. Sleeping in bed comfortably. Not arousable with verbal stimulation. HEENT: Atraumatic, normocephalic. Pulm: CTAB A&P. -wheezes, -rales, -rhonchi. Symmetrical chest rise. No increase work of breathing. No respiratory distress. Cardiac: RRR, -mrg. Radial pulses intact and symmetrical. No LE edema. Abdominal: soft, non-tender, non-distended, BS x 4 Skin: warm, dry, no rash Results & Data Results & Data ([facility]) Vital Signs (Past 12 Hours) Vital Signs Temp Pulse Resp BP Pulse Ox 10/22/20 08:00 37.6 C H 10/22/20 07:45 68 20 158/95 H 97 10/22/20 06:34 36.9 C 10/22/20 05:55 67 21 150/74 H 97 10/22/20 04:55 59 L 20 151/81 H 97 10/22/20 04:01 59 L 10/22/20 03:55 37.6 C H 61 22 161/92 H 94 10/22/20 00:55 58 L 17 142/108 H 96 10/21/20 23:55 37.3 C 57 L 15 139/66 96 10/21/20 23:20 59 L 10/21/20 22:55 37.3 C 60 17 147/96 H 96 10/21/20 21:55 59 L 16 169/74 H 97 Resident Activity Tracking Resident Involvement: Resident Care Provided Care Provided: Adult Hospital Medicine (1) Ankle fracture Encounter type: initial encounter Fracture type: closed Laterality: right Qualified Code(s): S82.891A - Other fracture of right lower leg, initial encounter for closed fracture
[2020-10-22] MEDS: ATORVASTATIN 40 MG TAB PO SCH (09:36)
[2020-10-22] MEDS: lisinopril 5 MG TAB PO SCH ×2 (09:36→20:45)
[2020-10-22] MEDS: PANTOprazole 40 MG TAB PO SCH (09:36)
[2020-10-22] MEDS: METOPROLOL SUCC 25MG EXT REL TAB PO SCH (09:36)
[2020-10-22] MEDS: ASPIRIN 81 MG CHEW PO SCH (09:36)
[2020-10-22] MEDS: OXYBUTYNIN CHLORIDE XL 5 MG TABCR PO SCH (09:36)
[2020-10-22] MEDS: TOPIRAMATE 25 MG TAB PO SCH ×2 (09:37→22:03)
[2020-10-22 09:42] LABS: Appearance Urine Clear (Clear); Bacteria Urine Automated Negative (Negative); Bilirubin Urine Negative (Negative); Blood Urine 3+ (Negative); Epithelial Cell Urine Auto 20-30 /lpf (0-5); Glucose Urine UA Negative (Negative); Ketones Urine 2+ (Negative); Leukocyte Esterase Urine 1+ (Negative); Nitrite Urine Negative (Negative); Protein Urine Trace (Negative); RBC Urine Automated >30 /hpf (0-4); Specific Gravity Urine 1.022 (1.000-1.030); Urobilinogen Urine Negative (Negative); pH Urine 5.5 (4.5-7.5)
[2020-10-22] MEDS ORDERED: LORazepam 1 MG/2 ML VIAL IV PRN (09:44)
[2020-10-22 09:48] LABS: Color Urine Yellow
--- NOTE | 2020-10-22 09:56 | XRay Report ---
XR chest 1V portable HISTORY: 70 years-old Female covid pneumonia acute shortness of breath with pneumonia COMPARISON: Chest radiograph and CTA chest 10/18/2020 TECHNIQUE: Portable AP view of the chest FINDINGS: The patient is slightly rotated towards the left. Moderate cardiomegaly with prior median sternotomy. There are persistent left lung base consolidative opacities. No pneumothorax or overt pulmonary delmy a. Calcified plaque of the thoracic aorta. Degenerative changes of the shoulders and spine. IMPRESSION: 1. Cardiomegaly without overt pulmonary edema. 2. Persistent left lung base opacities suggestive of atelectasis versus pneumonia. ACT 112: Negative or not required by law. The above report was generated using voice recognition software. It may contain grammatical, syntax o r spelling errors. Electronically signed by: Patricio Belle M.D. 10/22/2020 9:54 AM
--- NOTE | 2020-10-22 10:10 | Gastroenterology Progress Note ---
Date of Service October 22, 2020 Assessment & Plan (1) Abnormal CT scan, esophagus: (2) Dysphagia: Plan: -Protonix 40 mg BID -Needs motility evaluation for suspected achalasia. When able, will need barium swallow and outpatient esophageal manometry. Admission and Anticipated Discharge Date Admission Date: October 19, 2020 Supervising Physician Co-Signing Physician Notes I personally evaluated the patient and agree with the findings as documented by Kalyn Flynn, PAC Exam: abd: soft, nt, nd Subjective Patient is a 70 yo female with cardiac arrest after choking. Patient does not participate in the visit today and is lethargic. Last EGD in July 2020 that indicated esophagitis and tortuous esophagus. Review of Systems Review of Systems: Unobtainable due to cognitive status Physical Exam Constitutional: no acute distress Respiratory: normal respiratory effort, lungs clear to auscultation Gastrointestinal (Abdomen): normal bowel sounds, soft, nontender, no hepatosplenomegaly Psychiatric: A+Ox3, euthymic affect Results & Data Results & Data ([facility]) Vital Signs (Past 12 Hours) Vital Signs Temp Pulse Resp BP Pulse Ox 10/22/20 08:00 37.6 C H 10/22/20 07:45 68 20 158/95 H 97 10/22/20 06:34 36.9 C 10/22/20 05:55 67 21 150/74 H 97 10/22/20 04:55 59 L 20 151/81 H 97 10/22/20 04:01 59 L 10/22/20 03:55 37.6 C H 61 22 161/92 H 94 10/22/20 00:55 58 L 17 142/108 H 96 10/21/20 23:55 37.3 C 57 L 15 139/66 96 10/21/20 23:20 59 L 10/21/20 22:55 37.3 C 60 17 147/96 H 96 PG Care Time/CCT Total # of Minutes Spent Total Time Spent with Patient: Total time spent is greater than 50% in coordination of care (as documented) at patient's floor/unit and/or counseling patient: Coding Level of Care Code 60141 Subseq Hosp Care Lvl [address] scan, esophagus R93.3 Dysphagia R13.10
[2020-10-22] MEDS: FAMOTIDINE 20 MG TAB PO SCH ×2 (10:24→22:03)
[2020-10-22] MEDS ORDERED: LORazepam 0.5 MG/1 ML VIAL IV PRN (15:13)
--- NOTE | 2020-10-22 17:22 | Billing Data ---
Date of Service October 22, 2020 Coding Level of Care Code 28319 Subseq Hosp Care Lvl 2
[2020-10-22] MEDS: ACETAMINOPHEN 325 MG TAB PO PRN (17:58)
[2020-10-22] MEDS: ENOXAPARIN INJ 40 MG/0.4 ML SYR SQ SCH (17:59)
--- NOTE | 2020-10-22 18:19 | Billing Data ---
Date of Service October 22, 2020 Coding Level of Care Code 77715 Subseq Hosp Care Lvl 3
[2020-10-22] MEDS ORDERED: LORazepam 1 MG/2 ML VIAL IV STA (19:57)
[2020-10-22] MEDS: CHOLECALCIFEROL 1,000 UNITS 25 MCG TAB PO SCH (22:03)
[2020-10-22] MEDS: MULTIVITAMIN TAB PO SCH (22:03)
[2020-10-22] MEDS: CYANOCOBALAMIN 500 MCG TABLET (VITAMIN B-12) PO SCH (22:03)
[2020-10-23 05:11] LABS: Basophils # (auto) 0.03 K/uL (0-0.2); Basophils % (auto) 0.3 %; Eosinophils # (auto) 0.11 K/uL (0-0.5); Hematocrit (blood only) 41.4 % (37-47); Hemoglobin 13.7 g/dL (12.0-16.0); Immature Granulocytes # (auto) 0.04 K/uL (0.00-0.02); Immature Granulocytes % (auto) 0.4 %; Lymphocytes # (auto) 2.05 K/uL (1.2-3.4); Lymphocytes % (auto) 18.8 %; Mean Corpuscular Hemoglobin 30.6 pg (25-34); Mean Corpuscular Hgb Conc 33.1 g/dL (32-36); Mean Corpuscular Volume 92.6 fL (80-100); Mean Platelet Volume 10.1 fL (7.4-10.4); Monocytes # (auto) 1.06 K/uL (0.11-0.59); Monocytes % (auto) 9.7 %; Neutrophils # (auto) 7.59 K/uL (1.4-6.5); Neutrophils % (auto) 69.8 %; Platelet Count 242 K/uL (130-400); RDW Coefficient of Variation 13.3 % (11.5-14.5); RDW Standard Deviation 44.8 fL (36.4-46.3); Red Blood Count 4.47 M/uL (4.2-5.4); White Blood Count 10.88 K/uL (4.8-10.8)
[2020-10-23 05:28] LABS: BUN Creatinine Ratio 12.8 (10-20); Calcium 8.9 mg/dl (8.5-10.1); Creatinine Clr Calc Pharmacy 78.9 ml/min; Est GFR (African American) 103.9 ml/min; Est GFR (Non-African American) 89.6 ml/min; Potassium 3.9 mmol/L (3.5-5.1)
[2020-10-23 05:35] LABS: Phosphorus 3.2 mg/dl (2.5-4.9)
[2020-10-23] MEDS: ATORVASTATIN 40 MG TAB PO SCH (09:10)
[2020-10-23] MEDS: METOPROLOL SUCC 25MG EXT REL TAB PO SCH (09:10)
[2020-10-23] MEDS: ASPIRIN 81 MG CHEW PO SCH (09:11)
[2020-10-23] MEDS: OXYBUTYNIN CHLORIDE XL 5 MG TABCR PO SCH (09:11)
[2020-10-23] MEDS: FAMOTIDINE 20 MG TAB PO SCH ×2 (09:11→19:56)
[2020-10-23] MEDS: lisinopril 5 MG TAB PO SCH ×2 (09:12→19:56)
[2020-10-23] MEDS: TOPIRAMATE 25 MG TAB PO SCH ×2 (09:12→19:56)
[2020-10-23] MEDS: ACETAMINOPHEN 325 MG TAB PO PRN ×2 (09:58→16:05)
--- NOTE | 2020-10-23 10:51 | Hospitalist Progress Note ---
Date of Service October 23, 2020 Assessment & Plan (1) Cardiac arrest: Plan: Gill Hall is a 70yo female with PMHx significant for hypertension, hyperlipidemia, vascular dementia, anxiety, depression, asthma, migraines who was admitted to [facility] on 10/19 following cardiac arrest in the field with subsequent ROSC x2. Had cardiac cath on 10/21 with mild CAD; no arrhythmias while admitted. Transferred out of ICU on 10/22 - remains delirious. Cardiac Arrest, s/p ROSC; Left Ventricular Aneurysm; mild CAD S/p CPR x 2 in the field with achievement of ROSC (did not receive shock or epi, amio). Suspect choking that led to arrhythmia. - ECG demonstrating ST-depressions in the inferior leads with mildly elevated Troponin that peaked at 0.6 - TTE with low-normal LVSF (EF 50-55%), small LV aneurysm cannot be excluded - Interventional cardiology consulted upon arrival: cardiac cath on 10/21 with mild CAD - Cardiology on board - appreciate recs - plan for further work-up as outpatient - continue Aspirin/Atorvastatin/Lisinopril/Metoprolol at current doses for now Delirium Likely hospital-induced vs. med-induced (Ativan/Haldol) delirium on chronic vascular dementia. No metabolic abnormalities or signs of infection. - Morphine/Ativan PRN for agitation - re-orientation per nursing Prolonged QTc Suspect due to Haldol. - avoid further Haldol or QTc-prolonging meds - repeat EKG today pending Dysphagia/Odynophagia Symptoms occurred following choking episode on hamburger, patient symptoms has dysphagia with solid foods and was seen by Dr. Bolden - underwent EGD with dilation in 07/2020 and was started on Protonix, with improvement in symptoms at that time. - IRONWORKER APPRENTICE SHOP consult - recommended moist diet - GI consulted for further w/u - appreciate recs - continue Protonix 40mg BID - will likely need motility evaluation after cath with esophageal manometry, but can consider barium swallow in the interim (all can be outpatient work-up) Elevated Troponin As stated above peaked at 0.6, with ST-depressions in inferior leads. Cardiac cath on 10/21 with mild CAD. No chest pain. Likely Type II NH (demand ischemia). - no further monitoring necessary Right Ankle Fracture Closed right ankle fracture involving the RIGHT lateral malleolus - Ortho consulted - appreciate recs - recommend WBAT with boot; elevate and ice - F/U in 7-10 days after discharge Rib Fractures Suspect acute component s/p CPR. - No acute needs. Analgesia PRN Vascular Dementia, Anxiety, Depression No acute needs at this time. - held Citalopram due to concern for prolonged QTc - Continue Topamax HLD - Continue atorvastatin 80mg (new to this admission) - Lipid profile: TG 153, TC 178, LDL 112, HDL 35 HTN - Continue JANE-I/BB Asthma No acute needs. Stable respiratory status, no O2 requirement. - Continue home Breo Mild Noted on physical exam and per TTE. Asymptomatic - f/u per PCP GERD - Continue Pepcid Code: FULL CODE Dispo: med/surg with tele, PT recommends rehab, CM to help facilitate this Diet: heart-healthy/minced and moist diet DVT ppx: Lovenox 40mg SQ Q24H (2) Left ventricular aneurysm: (3) Ankle fracture: (4) Abnormal EKG: (5) Acute hypokalemia: (6) Vascular dementia without behavioral disturbance: (7) Osteoporosis: (8) Gait disturbance: (9) Dyslipidemia: (10) Chronic cerebral ischemia: (11) Cerebral amyloid angiopathy: (12) Asthma: (13) GERD (gastroesophageal reflux disease): (14) Depression with anxiety: (15) Stumbling gait: (16) Lumbar facet joint syndrome: (17) Hypertension: (18) Dysphagia: (19) Essential tremor: (20) Aortic stenosis, mild: (21) Rib fractures: Admission and Anticipated Discharge Date Admission Date: October 19, 2020 Supervising Physician Co-Signing Physician Notes I personally examined the patient and verified all carcamo points of history and exam, discussed case, and agree with decision making with Dr Delgado Thinks we are in [place], knows that there is food in front of her but does not think it is hers. While she will try to hold a conversation, as I try to reorient and redirect, she is very difficult to take cues. vitrals noted nad heent nc at mmm breathing unlabored no accessory muscles good effort skin no rashes no pallor or icterus, no focal neuro deficits. cardiac arrest - likely choking --> hypoxia --> arrest. In this respect doing better now. Does appear to have deliriumprobably multifactorial metabolic encephalopathy related to hospitalization/arrest/sedation for procedures/etc.unfortunately likely will take a while to clear. Supportive care. PT/OT eval and treat. Anticipate need for SNF for the short-term. Ongoing work-up and management for esophageal issues by GI. Subjective Patient remains delirious overnight and into this morning. Pulled PIV out this morning - was replaced. Patient is able to say her name but is otherwise not alert/oriented. HPI/ROS limited by current mental status. Review of Systems Review of Systems: Unobtainable due to cognitive status Physical Exam Physical Exam: General: A+O to self only. NAD. HEENT: Atraumatic, normocephalic. Pulm: CTAB A&P. -wheezes, -rales, -rhonchi. Symmetrical chest rise. No increase work of breathing. No respiratory distress. Cardiac: RRR, -mrg. Radial pulses intact and symmetrical. No LE edema. Abdominal: soft, non-tender, non-distended, BS x 4 Skin: warm, dry, no rash Results & Data Results & Data ([facility]) Vital Signs (Past 12 Hours) Vital Signs Temp Pulse Resp BP Pulse Ox 10/23/20 08:00 37 C 10/23/20 04:55 75 18 157/102 H 10/23/20 03:55 76 14 149/80 H 97 10/23/20 02:55 75 22 141/89 H 95 10/23/20 01:56 75 18 153/84 H 95 10/23/20 00:55 72 16 138/83 98 10/22/20 22:56 65 10/22/20 22:55 36.8 C 66 15 149/72 H 95 Resident Activity Tracking Resident Involvement: Resident Care Provided Care Provided: Adult Hospital Medicine (1) Ankle fracture Encounter type: initial encounter Fracture type: closed Laterality: right Qualified Code(s): S82.891A - Other fracture of right lower leg, initial encounter for closed fracture
[2020-10-23] MEDS: ENOXAPARIN INJ 40 MG/0.4 ML SYR SQ SCH (16:06)
--- NOTE | 2020-10-23 18:04 | Billing Data ---
Date of Service October 23, 2020 Coding Level of Care Code 94820 Subseq Hosp Care Lvl 2
[2020-10-23] MEDS: MULTIVITAMIN TAB PO SCH (19:56)
[2020-10-23] MEDS: CHOLECALCIFEROL 1,000 UNITS 25 MCG TAB PO SCH (19:57)
[2020-10-23] MEDS: CYANOCOBALAMIN 500 MCG TABLET (VITAMIN B-12) PO SCH (19:57)
[2020-10-24 05:04] LABS: Basophils # (auto) 0.04 K/uL (0-0.2); Basophils % (auto) 0.5 %; Eosinophils # (auto) 0.21 K/uL (0-0.5); Eosinophils % (auto) 2.4 %; Hematocrit (blood only) 38.3 % (37-47); Hemoglobin 12.8 g/dL (12.0-16.0); Immature Granulocytes # (auto) 0.03 K/uL (0.00-0.02); Immature Granulocytes % (auto) 0.3 %; Lymphocytes # (auto) 2.32 K/uL (1.2-3.4); Lymphocytes % (auto) 26.5 %; Mean Corpuscular Hgb Conc 33.4 g/dL (32-36); Mean Corpuscular Volume 92.7 fL (80-100); Monocytes # (auto) 0.97 K/uL (0.11-0.59); Monocytes % (auto) 11.1 %; Neutrophils # (auto) 5.17 K/uL (1.4-6.5); Neutrophils % (auto) 59.2 %; Platelet Count 231 K/uL (130-400); RDW Coefficient of Variation 13.4 % (11.5-14.5); RDW Standard Deviation 45.3 fL (36.4-46.3); Red Blood Count 4.13 M/uL (4.2-5.4); White Blood Count 8.74 K/uL (4.8-10.8)
[2020-10-24] MEDS: ACETAMINOPHEN 325 MG TAB PO PRN ×2 (05:09→15:00)
[2020-10-24 05:27] LABS: BUN Creatinine Ratio 16.1 (10-20); Calcium 8.9 mg/dl (8.5-10.1); Creatinine Clr Calc Pharmacy 80.2 ml/min; Est GFR (African American) 104.4 ml/min; Est GFR (Non-African American) 90.1 ml/min; Magnesium 2.3 mg/dl (1.8-2.4); Potassium 3.4 mmol/L (3.5-5.1)
[2020-10-24 05:36] LABS: Phosphorus 4.1 mg/dl (2.5-4.9)
--- NOTE | 2020-10-24 06:05 | Electrocardiogram Report ---
Test Reason : Blood Pressure : / mmHG Vent. Rate : 067 BPM Atrial Rate : 067 BPM P-R Int : 158 ms QRS Dur : 106 ms QT Int : 480 ms P-R-T Axes : 068 019 -82 degrees QTc Int : 507 ms Normal sinus rhythm Prolonged QT Abnormal ECG When compared with ECG of 21-OCT-2020 04:18, Premature ventricular complexes are no longer Present Confirmed by Renny Mckeon ([id number]) on 10/24/2020 6:05:09 AM Referred By: REFERRED SELF Confirmed By:Renny Mckeon
[2020-10-24] MEDS: POTASSIUM CHLORIDE PWD 20 MEQ PACK PO ONE ×2 (07:14→07:37)
[2020-10-24] MEDS: ATORVASTATIN 40 MG TAB PO SCH (07:38)
[2020-10-24] MEDS: OXYBUTYNIN CHLORIDE XL 5 MG TABCR PO SCH (07:38)
[2020-10-24] MEDS: ASPIRIN 81 MG CHEW PO SCH (07:38)
[2020-10-24] MEDS: lisinopril 5 MG TAB PO SCH (07:39)
[2020-10-24] MEDS: FAMOTIDINE 20 MG TAB PO SCH (07:39)
[2020-10-24] MEDS ORDERED: POTASSIUM CHLORIDE 10 MEQ TABCR PO STA (07:39)
[2020-10-24] MEDS: TOPIRAMATE 25 MG TAB PO SCH (07:39)
[2020-10-24] MEDS: METOPROLOL SUCC 25MG EXT REL TAB PO SCH (07:39)
--- NOTE | 2020-10-24 13:17 | Hospitalist Progress Note ---
Date of Service October 24, 2020 Assessment & Plan (1) Cardiac arrest: Plan: Gill Hall is a 70yo female with PMHx significant for hypertension, hyperlipidemia, vascular dementia, anxiety, depression, asthma, migraines who was admitted to [facility] on 10/19 following cardiac arrest in the field with subsequent ROSC x2. Had cardiac cath on 10/21 with mild CAD; no arrhythmias while admitted. Transferred out of ICU on 10/22 - remains delirious but improving. Cardiac Arrest, s/p ROSC; Left Ventricular Aneurysm; mild CAD S/p CPR x 2 in the field with achievement of ROSC (did not receive shock or epi, amio). Suspect choking that led to arrhythmia. - ECG demonstrating ST-depressions in the inferior leads with mildly elevated Troponin that peaked at 0.6 - TTE with low-normal LVSF (EF 50-55%), small LV aneurysm cannot be excluded - Interventional cardiology consulted upon arrival: cardiac cath on 10/21 with mild CAD - Cardiology on board - appreciate recs - plan for further work-up as outpatient - continue Aspirin/Atorvastatin/Lisinopril/Metoprolol at current doses for now Delirium, improving Likely hospital-induced vs. med-induced (Ativan/Haldol) delirium on chronic vascular dementia. No metabolic abnormalities or signs of infection. - Morphine/Ativan PRN for agitation - re-orientation per nursing Prolonged QTc Suspect due to Haldol. - avoid further Haldol or QTc-prolonging meds - repeat EKG daily Dysphagia/Odynophagia Symptoms occurred following choking episode on hamburger, patient symptoms has dysphagia with solid foods and was seen by Dr. Bolden - underwent EGD with dilation in 07/2020 and was started on Protonix, with improvement in symptoms at that time. - CREDIT REVIEW ANALYST consult - recommended moist diet - GI consulted for further w/u - appreciate recs - continue Protonix 40mg BID - will likely need motility evaluation after cath with esophageal manometry, but can consider barium swallow in the interim (all can be outpatient work-up) Elevated Troponin As stated above peaked at 0.6, with ST-depressions in inferior leads. Cardiac cath on 10/21 with mild CAD. No chest pain. Likely Type II ND (demand ischemia). - no further monitoring necessary Right Ankle Fracture Closed right ankle fracture involving the RIGHT lateral malleolus - Ortho consulted - appreciate recs - recommend WBAT with boot; elevate and ice - F/U in 7-10 days after discharge Rib Fractures Suspect acute component s/p CPR. - No acute needs. Analgesia PRN Vascular Dementia, Anxiety, Depression No acute needs at this time. - held Citalopram due to concern for prolonged QTc - Continue Topamax HLD - Continue atorvastatin 80mg (new to this admission) - Lipid profile: TG 153, TC 178, LDL 112, HDL 35 HTN - Continue JANE-I/BB Asthma No acute needs. Stable respiratory status, no O2 requirement. - Continue home Breo Mild Noted on physical exam and per TTE. Asymptomatic - f/u per PCP GERD - Continue Pepcid Code: FULL CODE Dispo: med/surg with tele, PT recommends rehab, CM to assist with [facility] placement Diet: heart-healthy/minced and moist diet DVT ppx: Lovenox 40mg SQ Q24H (2) Left ventricular aneurysm: (3) Ankle fracture: (4) Abnormal EKG: (5) Acute hypokalemia: (6) Vascular dementia without behavioral disturbance: (7) Osteoporosis: (8) Gait disturbance: (9) Dyslipidemia: (10) Chronic cerebral ischemia: (11) Cerebral amyloid angiopathy: (12) Asthma: (13) GERD (gastroesophageal reflux disease): (14) Depression with anxiety: (15) Stumbling gait: (16) Lumbar facet joint syndrome: (17) Hypertension: (18) Dysphagia: (19) Essential tremor: (20) Aortic stenosis, mild: (21) Rib fractures: Admission and Anticipated Discharge Date Admission Date: October 19, 2020 Subjective Patient's mental status improved overnight, without need for PRNs. A+O to name as well as year, but did not know she was in the hospital or why she is here. Denies fever/chills, chest pain, palpitations, SOB, cough, N/V, abdominal pain, rash. Review of Systems Review of Systems: All systems reviewed & are unremarkable except as noted in Subjective Physical Exam Physical Exam: General: A+O to self and year only. NAD. Cooperative. More alert today. HEENT: Atraumatic, normocephalic. Pulm: CTAB A&P. -wheezes, -rales, -rhonchi. Symmetrical chest rise. No increase work of breathing. No respiratory distress. Cardiac: RRR, -mrg. Radial pulses intact and symmetrical. No LE edema. Abdominal: soft, non-tender, non-distended, BS x 4 Skin: warm, dry, no rash Results & Data Results & Data ([facility]) Vital Signs (Past 12 Hours) Vital Signs Temp Pulse Pulse Resp BP BP Pulse Ox 10/24/20 13:10 72 10/24/20 12:40 36.4 C L 76 20 132/85 96 10/24/20 11:17 37.2 C 61 19 152/82 H 95 10/24/20 08:00 74 10/24/20 07:13 63 21 175/82 H 95 10/24/20 07:11 37.2 C 80 19 175/82 H 96 10/24/20 04:24 36.8 C 66 17 157/82 H 97 Resident Activity Tracking Resident Involvement: Resident Care Provided Care Provided: Adult Hospital Medicine (1) Ankle fracture Encounter type: initial encounter Fracture type: closed Laterality: right Qualified Code(s): S82.891A - Other fracture of right lower leg, initial encounter for closed fracture
[2020-10-24] MEDS: ENOXAPARIN INJ 40 MG/0.4 ML SYR SQ SCH (15:29)
--- NOTE | 2020-10-24 16:24 | Orthopedic Progress Note ---
Date of Service October 23, 2020 Assessment & Plan (1) Ankle fracture: Plan: Right ankle fracture Will continue fracture boot when out of bed She may weight bear as tolerated right lower extremity with assistance as needed. Allowed for ROM right ankle as tolerated Ice and elevate PRN swelling Tylenol for pain She has follow up scheduled on Wednesday in our office for repeat x-rays, if she is still here then, we will obtain new xrays while in the hospital. Dr. Witt present for today's visit. Admission and Anticipated Discharge Date Admission Date: October 19, 2020 Subjective Patient is sitting in her chair. Has one-on-one monitoring right now. She's wearing her boot. states that she does have pain in the ankle. Denies pain elsewhere. Physical Exam Musculoskeletal: Boot in placed right ankle; fits fine. Distal N/V normal. Results & Data ([facility]) Vital Signs (Past 12 Hours) Vital Signs Temp Pulse Pulse Resp BP BP Pulse Ox 10/24/20 15:21 68 10/24/20 15:04 36.7 C 68 18 126/86 96 10/24/20 15:00 37.1 C 70 20 153/89 H 97 10/24/20 13:10 72 10/24/20 12:40 36.4 C L 76 20 132/85 96 10/24/20 11:17 37.2 C 61 19 152/82 H 95 10/24/20 08:00 74 10/24/20 07:13 63 21 175/82 H 95 10/24/20 07:11 37.2 C 80 19 175/82 H 96 10/24/20 04:24 36.8 C 66 17 157/82 H 97 (1) Ankle fracture Encounter type: initial encounter Fracture type: closed Laterality: right Qualified Code(s): S82.891A - Other fracture of right lower leg, initial e ncounter for closed fracture
--- NOTE | 2020-10-24 16:26 | Discharge Summary ---
Date of Service October 24, 2020 Admission HPI Per Admitting Provider The patient is a 70-year-old female with a past medical history including vascular dementia, vitamin D deficiency, urinary incontinence, osteoporosis, osteoarthritis, impaired fasting glucose, gait disturbance, dyslipidemia, chronic diarrhea, chronic cerebral ischemia, cerebral amyloid angiopathy, asthma, mild aortic stenosis, essential tremor, thoracic facet syndrome, myofascial pain, GERD, depression with anxiety, hypertension, lumbar facet joint syndrome and stumbling gait. Patient was D eating dinner this evening when she became acutely short of breath she then went into the bathroom, and her found her unresponsive, pulseless and apneic. He called for EMS, and while waiting did have some CPR performed by family. When EMS arrived, she was awake, but when she was being brought into the ambulance she arrested again. EMS performed CPR for about 2 minutes, did have ROSC, and did wake up again. In the emergency department patient was alert awake and responsive, and did not have any abnormal rhythms during her emergency department stay. Work-up included chest x-ray which showed bibasilar changes left greater than right. CT angiography of chest showed left ventricular 1.5 cm saccular aneurysm. Left third and fourth ribs fracture that were considered subacute/chronic. Right foot and ankle x-ray showed a right lateral malleolus fracture Laboratories: Potassium was 3.2 Admission Exam Per Admitting Provider The patient is awake, alert and oriented 3, well developed and well nourished, normocephalic and atraumatic, lying in bed and in no acute distress. HEENT--PERRL, EOMI, mucous membranes and oropharynx normal. Neck--supple. No JVD. No bruits. Thyroid normal, trachea midline, no adenopathy. Heart--normal S1 and S2. No murmurs, rubs or gallops. Lungs--clear bilaterally, no respiratory distress, no accessory muscle use. Abdomen--normal bowel sounds and soft. Nontender. Nondistended, no hernias or masses, no organomegaly. Extremities--no cyanosis or clubbing. No edema. There are good distal pulses b/l. Dermatologic--normal skin turgor, normal color, no abnormal lymph nodes, no rash. Neurologic--cranial nerves II through XII grossly intact. Rheumatologic--normal range of motion. Psychiatric--normal affect. Principal Diagnosis Cardiac Arrest Discharge Exam General: A+O to self only. NAD. HEENT: Atraumatic, normocephalic. Pulm: CTAB A&P. -wheezes, -rales, -rhonchi. Symmetrical chest rise. No increase work of breathing. No respiratory distress. Cardiac: RRR, -mrg. Radial pulses intact and symmetrical. No LE edema. Abdominal: soft, non-tender, non-distended, BS x 4 Skin: warm, dry, no rash Discharge Data Allergies Allergy/AdvReac Type Severity Reaction Status Date / Time aspirin Allergy Mild makes her Verified 10/18/20 22:29 sick Sulfa (Sulfonamide Allergy Unknown Unknown rxn Verified 10/18/20 22:29 Antibiotics) metoprolol AdvReac Intermediate makes her Verified 10/18/20 22:29 sick Consultations 10/18/20 22:44 ED Decision to Admit Stat 10/19/20 02:22 Consult Medical Psychotherapist Routine 10/19/20 06:49 Consult Orthopedic Surgery Routine 10/19/20 06:54 Consult Cardiology Routine 10/19/20 10:32 Consult Cardiac Catheterization Routine 10/21/20 09:33 Consult Gastroenterology Routine 10/21/20 09:50 Consult Cardiac Electrophysiology Routine Procedures Performed Operation Date: 10/21/20 11:00 Actual Procedures p Cath, Coronaries ONLY (no LV) - Mil Brownlee MD s Cineradiography w/Routine Exam - Mil Brownlee MD s Placement Art Occlusive Device - Mil Brownlee MD Ordered Studies 10/18/20 21:53 CT angio chest PE protocol Stat 10/18/20 23:17 CT head/brain wo con Stat 10/19/20 14:25 CT soft tissue neck w con Routine 10/21/20 07:33 CL Cath Imgs for PACS use only Stat Hospital Course (1) Cardiac arrest: Gill Hall is a 70yo female with PMHx significant for hypertension, hyperlipidemia, vascular dementia, anxiety, depression, asthma, migraines who was admitted to [facility] on 10/19 following cardiac arrest in the field with subsequent ROSC x2. Had cardiac cath on 10/21 with mild CAD; no arrhythmias while admitted. Transferred out of ICU on 10/22. Discharged on 10/24. Cardiac Arrest, s/p ROSC; Left Ventricular Aneurysm; mild CAD S/p CPR x 2 in the field with achievement of ROSC (did not receive shock or epi, amio). Suspect choking that led to arrhythmia. - ECG demonstrating ST-depressions in the inferior leads with mildly elevated Troponin that peaked at 0.6 - TTE with low-normal LVSF (EF 50-55%), small LV aneurysm cannot be excluded - Interventional cardiology consulted upon arrival: cardiac cath on 10/21 with mild CAD - Cardiology on board - appreciate recs - plan for further work-up as outpatient - continue Aspirin/Atorvastatin/Lisinopril/Metoprolol at current doses for now Delirium, resolved Likely hospital-induced vs. med-induced (Ativan/Haldol) delirium on chronic vascular dementia. No metabolic abnormalities or signs of infection. Prolonged QTc Suspect due to Haldol. - avoid further Haldol or QTc-prolonging meds - repeat EKG on an outpatient basis Dysphagia/Odynophagia Symptoms occurred following choking episode on hamburger, patient symptoms has dysphagia with solid foods and was seen by Dr. Bolden - underwent EGD with dilation in 07/2020 and was started on Protonix, with improvement in symptoms at that time. - AUTOMATIC LEHR OPERATOR consult - recommended moist diet - GI consulted for further w/u - appreciate recs - continue Protonix 40mg BID - will likely need motility evaluation after cath with esophageal manometry, but can consider barium swallow in the interim (all can be outpatient work-up) Elevated Troponin As stated above peaked at 0.6, with ST-depressions in inferior leads. Cardiac cath on 10/21 with mild CAD. No chest pain. Likely Type II OK (demand ischemia). - no further monitoring necessary Right Ankle Fracture Closed right ankle fracture involving the RIGHT lateral malleolus - Ortho consulted - appreciate recs - recommend WBAT with boot; elevate and ice - F/U in 7-10 days after discharge Rib Fractures Suspect acute component s/p CPR. - No acute needs. Analgesia PRN Vascular Dementia, Anxiety, Depression No acute needs at this time. - held Citalopram due to concern for prolonged QTc - Continue Topamax HLD - Continue atorvastatin 80mg (new to this admission) - Lipid profile: TG 153, TC 178, LDL 112, HDL 35 HTN - Continue JANE-I/BB Asthma No acute needs. Stable respiratory status, no O2 requirement. - Continue home Breo Mild Noted on physical exam and per TTE. Asymptomatic - f/u per PCP GERD - Continue Protonix (2) Left ventricular aneurysm: (3) Ankle fracture: (4) Abnormal EKG: (5) Acute hypokalemia: (6) Vascular dementia without behavioral disturbance: (7) Osteoporosis: (8) Gait disturbance: (9) Dyslipidemia: (10) Chronic cerebral ischemia: (11) Cerebral amyloid angiopathy: (12) Asthma: (13) GERD (gastroesophageal reflux disease): (14) Depression with anxiety: (15) Stumbling gait: (16) Lumbar facet joint syndrome: (17) Hypertension: (18) Dysphagia: (19) Essential tremor: (20) Aortic stenosis, mild: (21) Rib fractures: Total Time Total Time Spent Total Time Spent (In Minutes): <30 minutes Discharge Plan Discharge Items Patient Disposition: Home - Home Health Services Reason For Visit: CARDIAC ARREST Discharge Diagnosis: Cardiac Arrest Activity: Per Instructions section Weightbearing: Right weightbearing Weightbearing Comment: with boot on at all times. Non-emergency contact: Primary Care Provider, Surgeon, Measurement Supervisor and Aerospace Engineer Call non-emergency contact if: you have any medication questions, your pain is not controlled and you have a fever Follow-up/Referrals: Mary Drake CRNP [Primary Care Provider] - 11/04/20 2:00 pm (If you have any questions or need to change this appointment, please call [phone].) Sky Horn MD [Physician] - (please schedule f/u in 1-2 weeks) Hernan Bolden MD [Physician] - (please schedule f/u in 1-2 weeks ) Cabrera Bernard PA-C [Physician Banquet Stewardess] - 10/30/20 9:00 am Diet: Heart Healthy Diet Texture: Easy to Chew Addtl Attending Provider Instructions: You were admitted to [facility] from 10/19 to 10/24, after you choked on food, went into cardiac arrest, and were revived by CPR. You underwent significant blood work and evaluation of your heart, which included a heart catheterization procedure and cardiac rhythm monitoring. This work-up revealed some coronary artery disease (plaque disease of your heart blood vessels) and you were started on several medications for this. You were also seen by our GI doctors and they recommended maintaining a soft diet. You unfortunately had a right ankle fracture and will need to address this with an Orthopedic surgeon - an appointment has been arranged for you in 1 week. Please follow the instructions below (written by the Orthopedic surgeon) to care for your right foot. You will be discharged in good, stable condition on 10/24/2020. Please continue to take the following new medications, which will be sent to your pharmacy: 1. Aspirin, one pill per day 2. Atorvastatin, 1 pill per day 3. Metoprolol succinate, 1 pill per day You will stop taking Citalopram for now. Please speak to your PCP and Measurement Supervisor before re-starting this medication. Please continue to take your other home medications as prescribed. Please follow up with your Orthopedic surgeon, GI doctor, Measurement Supervisor, and PCP as scheduled. Addtl Communications Clerk Provider Instructions: Weight bear as tolerated right ankle with boot on right foot Ice to right ankle as needed for pain/swelling. Elevate right leg above heart to relieve pain/swelling. Allowed for range of motion left ankle as tolerated Follow up with Dr. Witt in 7-10 days for re-evaluation. Pending Studies at Discharge: No Stand-Alone Forms: [employer], Smoking Cessation Medications and DC Order Prescriptions: New aspirin 81 mg tablet,delayed release (DR/EC) 81 mg PO DAILY Qty: 30 RF: 1 atorvastatin 80 mg tablet 80 mg PO DAILY Qty: 30 RF: 1 metoprolol succinate 25 mg tablet extended release 24 hr 25 mg PO DAILY Qty: 30 RF: 1 Continued lisinopril 5 mg tablet 5 mg PO QAM Qty: 90 RF: 3 oxybutynin chloride 15 mg tablet extended release 24 hr 15 mg PO QAM Qty: 90 RF: 3 alendronate 70 mg tablet 70 mg PO WEEKLY Qty: 12 RF: 5 pantoprazole [Protonix] 40 mg tablet,delayed release (DR/EC) 40 mg PO DAILY Qty: 30 RF: 2 multivitamin Tablet 1 tab PO QPM RF: 0 cyanocobalamin (vitamin B-12) [Vitamin B-12] 1,000 mcg Tablet 1,000 mcg PO QPM RF: 0 celecoxib 200 mg capsule 200 mg PO QAM RF: 0 cholecalciferol (vitamin D3) 50 mcg (2,000 unit) capsule 50 mcg PO QPM RF: 0 Breo Ellipta 100-25 mcg/dose blister with device 1 puffs INH QAM PRN (Reason: Shortness Of Breath) RF: 0 topiramate 25 mg tablet 25 mg PO BID RF: 0 Discontinued citalopram 40 mg tablet 40 mg PO QPM RF: 0 Discharge Orders: Discharge Order (Routine); Ordered 10/24/20 Ordered By: Gilmer Delgado Admission Data Admit Date/Time: 10/19/20 00:54 Attending Provider: Andi Paniagua Admit Provider: Arash Torres Primary Care Provider: Mary Drake Other Providers: Arash Torres ; Michele Anthony ; Fabio Witt ; Mil Brownlee ; Carroll Ocampo ; Hernan Bolden ; Sky Horn ; [facility] Other Interventions: Discharge Summary Assessment (RN) Last Done: 10/24/20 16:31 Supervising Physician Co-Signing Physician Notes I personally examined the patient and verified all carcamo points of history and exam, discussed case, and agree with decision making with Dr Delgado Feeling okay. Ate a little bit. Still quite disoriented. No new complaints. In discussion with resident physician, feels he can do okay taking care of patient at home. Case management assisting. vitrals noted nad heent nc at mmm breathing unlabored no accessory muscles good effort skin no rashes no pallor or icterus, no focal neuro deficits. cardiac arrest - likely choking --> hypoxia --> arrest. In this respect doing better now. Does appear to have deliriumprobably multifactorial metabolic encephalopathy related to hospitalization/arrest/sedation for procedures/etc.unfortunately likely will take a while to clear. Supportive care. PT/OT eval and treat. Okay with plan for home with family support and additional support as can be arranged by case management, can return to hospital if delirium situation is overwhelming. Given that feels that he can care for her, her home environment would likely hasten resolution of delirium, however. Resident Activity Tracking Resident Involvement: Resident Care Provided Care Provided: Adult Hospital Medicine
--- NOTE | 2020-10-24 16:46 | Billing Data ---
Date of Service October 24, 2020 Coding Level of Care Code D/C DAY MANAGEMENT <30 MINS
--- NOTE | 2020-10-25 09:09 | Electrocardiogram Report ---
Test Reason : Blood Pressure : / mmHG Vent. Rate : 085 BPM Atrial Rate : 085 BPM P-R Int : 152 ms QRS Dur : 102 ms QT Int : 442 ms P-R-T Axes : 060 028 094 degrees QTc Int : 525 ms Normal sinus rhythm Prolonged QT Abnormal ECG When compared with ECG of 23-OCT-2020 11:56, No significant change was found Confirmed by Renny Mckeon ([id number]) on 10/25/2020 9:08:49 AM Referred By: REFERRED SELF Confirmed By:Renny Mckeon
--- NOTE | 2020-10-25 09:09 | Electrocardiogram Report ---
Test Reason : Blood Pressure : / mmHG Vent. Rate : 086 BPM Atrial Rate : 086 BPM P-R Int : 142 ms QRS Dur : 100 ms QT Int : 428 ms P-R-T Axes : 062 030 074 degrees QTc Int : 512 ms Normal sinus rhythm Prolonged QT Abnormal ECG When compared with ECG of 22-OCT-2020 04:32, Nonspecific T wave abnormality no longer evident in Inferior leads Confirmed by Renny Mckeon ([id number]) on 10/25/2020 9:08:25 AM Referred By: REFERRED SELF Confirmed By:Renny Mckeon
== END 2020-10-24 16:57 | disposition home health service (06) | DRG 205 ==
LOC: ED 21:17 → SUATTDRO 10-19 00:54 → 1E 10-19 00:54 → 2N 10-24 12:37
PROC: CLB.CCO (2020-10-21 11:00)

== ENCOUNTER 2022-11-21 20:06 | Observation (INO) ==
--- NOTE | 2022-11-21 22:01 | XRay Report ---
SINGLE VIEW CHEST CLINICAL HISTORY: Cough and fever. FINDINGS: 2 AP upright chest radiographs are compared to study dated 11/13/2020. The patient is status post midline sternotomy. The heart is enlarged noting atherosclerotic calcification of the thoracic area. The pulmonary vasculature is noncongested. The lungs and pleural spaces are clear. No pneumotho rax is seen. The skeletal structures are osteopenic. The bony thorax is grossly intact. IMPRESSION: No active disease in the chest. ACT 112: Negative or not required by law. Electronically signed by: Talha Storey M.D. 11/21/2022 10:00 PM
[2022-11-21 22:26] LABS: Alanine Aminotransferase 23 U/L (7-52); Albumin Globulin Ratio 1.4 (0.9-2); Alkaline Phosphatase 64 U/L (34-104); Anion Gap 8 (3-11); Aspartate Aminotransferase 29 U/L (13-39); BUN Creatinine Ratio 11.6 (10-20); Bilirubin,Total 0.9 mg/dl (0.2-1.0); Blood Urea Nitrogen 10 mg/dl (6-23); Calcium 9.1 mg/dl (8.6-10.3); Carbon Dioxide 28 mmol/L (21-32); Chloride 102 mmol/L (98-107); Est GFR (African American) 77.1 ml/min; Est GFR (Non-African American) 66.6 ml/min; Globulin 2.9 gm/dl (2.5-4.0); Glucose 115 mg/dl (70-99(Fasting)); Potassium 3.9 mmol/L (3.5-5.1); Sodium 138 mmol/L (136-145); Total Protein 6.9 gm/dl (6.0-8.3)
[2022-11-21 22:32] LABS: Basophils # (auto) 0.05 K/uL (0.00-0.20); Basophils % (auto) 0.7 %; Eosinophils # (auto) 0.01 K/uL (0.00-0.50); Eosinophils % (auto) 0.1 %; Hematocrit (blood only) 39.4 % (37.0-47.0); Hemoglobin 13.2 g/dl (12.0-16.0); Immature Granulocytes # (auto) 0.04 K/uL (0.01-0.20); Immature Granulocytes % (auto) 0.5 %; Lymphocytes # (auto) 0.81 K/uL (1.20-3.40); Mean Corpuscular Hemoglobin 31.9 pg (25.0-34.0); Mean Corpuscular Hgb Conc 33.5 g/dL (32.0-36.0); Mean Corpuscular Volume 95.2 fL (80.0-100.0); Monocytes # (auto) 0.89 K/uL (0.11-0.59); Monocytes % (auto) 12.1 %; Neutrophils # (auto) 5.58 K/uL (1.40-6.50); Neutrophils % (auto) 75.6 %; Platelet Count 149 K/uL (130-400); RDW Standard Deviation 48.7 fL (36.4-46.3); Red Blood Count 4.14 M/uL (4.20-5.40); White Blood Count 7.38 K/ul (4.8-10.8)
[2022-11-21 22:55] LABS: Appearance Urine Clear (Clear); Bacteria Urine Automated Negative (Negative); Bilirubin Urine Negative (Negative); Blood Urine Negative (Negative); Color Urine Dark Yellow; Epithelial Cell Urine Auto 20-30 /lpf (0-5); Glucose Urine UA Negative (Negative); Ketones Urine Trace (Negative); Leukocyte Esterase Urine 1+ (Negative); Nitrite Urine Negative (Negative); RBC Urine Automated 0-4 /hpf (0-4); Specific Gravity Urine 1.021 (1.000-1.030); Urobilinogen Urine Negative (Negative); pH Urine 7.5 (4.5-7.5)
[2022-11-21 22:56] LABS: Protein Urine Trace (Negative)
--- NOTE | 2022-11-21 23:07 | Emergency Department Note ---
ED Provider Note History of Present Illness Chief Complaint: Illness Time Seen by Provider: 11/21/22 22:39 Source: patient and family (spoke with , Karthikeyan via telephone) Mode of arrival: ambulatory Limitations: altered mental status This patient is a 72-year-old female who presents to the emergency department for evaluation of COVID-19, weakness and confusion. Patient states she does not know why she is here. She does have COVID-19 and states she is having some body aches, cough and fevers. I did speak with the patient's who states that the patient has been more confused than usual and has been very weak. She has had trouble getting around and he is having trouble helping her. He does not feel that he can care for her at home. The patient does report some shortness of breath. Home Medications Medication Instructions Recorded Confirmed Type cholecalciferol (vitamin D3) 50 50 mcg PO QPM 08/07/20 11/22/22 History mcg (2,000 unit) capsule cyanocobalamin (vitamin B-12) 1,000 mcg PO QPM 08/07/20 11/22/22 History 1,000 mcg tablet (Vitamin B-12) multivitamin 1 tab PO QPM 08/07/20 11/22/22 History aspirin 81 mg tablet,delayed 81 mg PO HS 08/11/21 11/22/22 History release alendronate 70 mg tablet 70 mg PO WEEKLY #12 tabs 12/17/21 11/22/22 Rx topiramate 25 mg tablet 25 mg PO BID #180 tabs 04/22/22 11/22/22 Rx atorvastatin 80 mg tablet 80 mg PO HS #90 tabs 10/08/22 11/22/22 Rx metoprolol succinate 25 mg 25 mg PO QAM #90 tabs 10/08/22 11/22/22 Rx tablet,extended release 24 hr fluticasone furoate 100 1 inh inhalation DAILY 10/20/22 11/22/22 History mcg-vilanterol 25 mcg/dose inhalation powder (Breo Ellipta) lisinopril 5 mg tablet 5 mg PO QAM #90 tabs 11/05/22 11/22/22 Rx pantoprazole 40 mg tablet,delayed 40 mg PO QAM #90 tabs 11/05/22 11/22/22 Rx release (Protonix) nirmatrelvir 300 mg (150 mg See Rx Instructions PO .COMPLEX 5 11/21/22 11/22/22 Rx x2)-ritonavir 100 mg tablet,dose days #30 tabs pack (Paxlovid) benzonatate 100 mg capsule 100 mg PO TID PRN Cough 11/22/22 11/22/22 History Allergies Allergy/AdvReac Type Severity Reaction Status Date / Time aspirin Allergy Mild makes her Verified 11/22/22 00:36 sick metoprolol Allergy Mild makes her Verified 11/22/22 00:36 sick Sulfa (Sulfonamide Allergy Unknown Unknown Verified 11/22/22 00:36 Antibiotics) mayonnaise AdvReac Mild "makes me Verified 11/22/22 00:36 sick and throws up" Past Med/Surg History Medical History Arrhythmia "skips a beat", old, nothing new Asthma inhaler daily Asymptomatic menopausal state Cardiac arrest (~10/21/20) per Dr. Horn's note "The mechanism of her cardiac arrest appeared to be hy poxia. She was noted to have evidence of cyanosis prior to losing consciousness. This occurred while eating. There were no indications of malignant arrhythmia or need for defibrillation. No cardioversion or defibrillation was performed during her resuscitation." Depression with anxiety Dyslipidemia Esophageal abnormality tortuous esophagus Forgetfulness Hiatal hernia History of esophageal dilatation History of urinary urgency Hypertension Long QT interval Lumbar facet joint syndrome Orthostatic hypotension Osteoarthritis Stumbling gait BLE weakness--pt denies need for any assistive devices when ambulating Transient ischemic attack (TIA) >5 years ago, [facility] neuro Urinary incontinence Surgical History H/O section X 2 History of cardiac cath (~10/21/20) d/t NSTEMI @ [facility], no stents placed--follows with Dr. Horn History of cataract surgery bilateral History of esophagogastroduodenoscopy (EGD) 08/08/20 [place] History of heart surgery at 13 years old, VSD repair S/P epidural steroid injection Family History Mother Myocardial infarction Father Myocardial infarction Other No family history of adverse response to anesthesia Denies family history of Ovarian cancer Prostate cancer Breast cancer Colorectal cancer Social History Smoking Status: Never smoker Tobacco Type: Cigarettes Second Hand Exposure: Yes ( is a former smoker); Do You Dip or Chew Tobacco: No; Hx Alcohol Use: No Hx Substance Use: No Preferred Language: Austrian Communication Ability: Effective Visual Impairment: Limited Hearing Ability: Normal Relay Checker Required: No Beliefs That Will Affect Care: None marital status: Current Living Situation: Spouse current occupational status: retired 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 Feels Safe at Home: Yes Childhood Exposure to Second-Hand Smoke: Yes Diet: regular caffeine: Yes Dental Care, Regularly: No Physical Activity Frequency: 3-4 Times per Week Seatbelt Use: always Sunscreen Use: No Assistive Devices: Cane, Denture - Upper and Walker Physical Exam Vital Signs Vital Signs - 24 hr 11/21/22 20:20 11/21/22 22:22 11/21/22 22:00 Temperature 37.3 C Temperature Source Temporal Artery Scan Pulse Rate 75 86 Pulse Rate [Right Finger] 75 Respiratory Rate 18 18 Respiratory Effort / Characteristics Non-Labored Spontaneous Non-Labored Spontaneous Respiratory Depth Normal Normal Respiratory Pattern Regular Regular Blood Pressure 109/59 L Blood Pressure [Right Arm] 92/69 L Blood Pressure Mean 75 Blood Pressure Mean [Right Arm] 76 Pulse Oximetry 95 92 Oxygen Delivery Method Room Air Room Air Sepsis Recent Fever Within 48 Hours No Sepsis New/Unexplained Change in Mental Status No Sepsis Action Taken by Nursing No Action Required VITALS: Vitals are noted on the nurse's note and reviewed by myself. GENERAL: This is a 72-year-old female, in no acute distress, lying on her side in bed. SKIN: The skin was without rashes. EARS: External auditory canals clear, tympanic membranes pearly [place] without erythema or effusion bilaterally. EYES: Pupils equal round and reactive to light and accommodation. MOUTH: Mucous membranes moist. Tonsils are not enlarged. Pharynx without erythema or exudate. NECK: Supple without nuchal rigidity. No lymphadenopathy. HEART: Regular rate and rhythm without murmurs gallops or rubs. LUNGS: Clear to auscultation bilaterally without wheezes, rales or rhonchi. No retractions or accessory muscle use. NEURO: Patient was alert and oriented to person and place, but not time. Course Administered Medications Acetaminophen (Acetaminophen 325 Mg Tab) 650 mg PO Q4H PRN PRN Reason: Pain or Fever Stop: 12/22/22 02:42 Last Admin: 11/22/22 15:20 Dose: 650 mg Documented By: Admin: 11/22/22 03:26 Dose: 650 mg Documented By: BEBE Aspirin (Aspirin 81 Mg Ectab) 81 mg PO HS [facility] Stop: 12/22/22 20:59 Last Admin: 11/22/22 22:35 Dose: 81 mg Documented By: JORDEN Atorvastatin Calcium (Atorvastatin 40 Mg Tab) 80 mg PO HS [facility] Stop: 12/22/22 20:59 Last Admin: 11/22/22 22:35 Dose: 80 mg Documented By: JORDEN Benzonatate (Benzonatate 100 Mg Capsule) 100 mg PO TID PRN PRN Reason: Cough Stop: 12/22/22 02:42 Last Admin: 11/22/22 13:22 Dose: 100 mg Documented By: MATEO Cyanocobalamin (Cyanocobalamin (B-12) 500 Mcg Tablet) 1,000 mcg PO QPM [facility] Stop: 12/22/22 20:59 Last Admin: 11/22/22 22:34 Dose: 1,000 mcg Documented By: JORDEN Fluticasone/Vilanterol (Fluticasone/Vilanterol 100/25mcg 14 Puffs/Inhaler) 1 puffs INH DAILY [facility] Stop: 12/22/22 08:59 Last Admin: 11/22/22 08:43 Dose: 1 puffs Documented By: NEGRO Lisinopril (Lisinopril 5 Mg Tab) 5 mg PO QAM [facility] Stop: 12/22/22 08:59 Last Admin: 11/22/22 08:40 Dose: 5 mg Documented By: NEGRO Metoprolol Succinate (Metoprolol Succ 25mg Ext Rel Tab) 25 mg PO QAM [facility] Stop: 12/22/22 08:59 Last Admin: 11/22/22 08:41 Dose: 25 mg Documented By: NEGRO Multivitamins (Multivitamin Tab) 1 tab PO QPM PRO Stop: 12/22/22 20:59 Last Admin: 11/22/22 22:35 Dose: 1 tab Documented By: JORDEN Pantoprazole Sodium (Pantoprazole 40 Mg Tab) 40 mg PO QAM PRO Stop: 12/22/22 08:59 Last Admin: 11/22/22 08:40 Dose: 40 mg Documented By: NEGRO Topiramate (Topiramate 25 Mg Tab) 25 mg PO BID PRO Stop: 12/22/22 08:59 Last Admin: 11/22/22 22:35 Dose: 25 mg Documented By: Admin: 11/22/22 08:40 Dose: 25 mg Documented By: NEGRO Vitamin D (Cholecalciferol 1,000 Units 25 Mcg Tab) 2,000 units PO QPM PRO Stop: 12/22/22 20:59 Last Admin: 11/22/22 22:35 Dose: 2,000 units Documented By: JORDEN Discontinued Medications Potassium Chloride/Sodium Chloride (Normal Saline W/20 Meq Kcl) 20 meq in 1,000 mls @ 80 mls/hr IV .[id number] PRO Stop: 11/22/22 15:12 Last Infusion: 11/22/22 18:50 Dose: 0 mls/hr Documented By: Admin: 11/22/22 03:26 Dose: 80 mls/hr Documented By: BEBE Medical Decision Making Differential Diagnosis Infection, hypoglycemia, electrolyte abnormalities, overdose, toxicologic, cardiac sources, intracerebral event, neurologic, trauma, as well as other pathologies. Home Medications was personally reviewed by me Laboratory Data Attestation: I reviewed the patient's lab results. 11/21/22 21:53 11/21/22 21:53 Lab Results 11/21/22 11/21/22 11/21/22 Range/Units 20:48 21:53 21:53 WBC 7.38 (4.8-10.8) K/ul RBC 4.14 L (4.20-5.40) M/uL Hgb 13.2 (12.0-16.0) g/dl Hct 39.4 (37.0-47.0) % MCV 95.2 (80.0-100.0) fL MCH 31.9 (25.0-34.0) pg MCHC 33.5 (32.0-36.0) g/dL RDW Std Deviation 48.7 H (36.4-46.3) fL RDW Coeff of [place] 14.0 (11.5-14.5) % Plt Count 149 (130-400) K/uL MPV 11.0 (9.4-12.4) fL Immature Gran % (Auto) 0.5 % Neut % (Auto) 75.6 % Lymph % (Auto) 11.0 % [place] % (Auto) 12.1 % Eos % (Auto) 0.1 % Baso % (Auto) 0.7 % Neut # (Auto) 5.58 (1.40-6.50) K/uL Lymph # (Auto) 0.81 L (1.20-3.40) K/uL [place] # (Auto) 0.89 H (0.11-0.59) K/uL Eos # (Auto) 0.01 (0.00-0.50) K/uL Baso # (Auto) 0.05 (0.00-0.20) K/uL Immature Gran # (Auto) 0.04 (0.01-0.20) K/uL Sodium 138 (136-145) mmol/L Potassium 3.9 (3.5-5.1) mmol/L Chloride 102 (98-107) mmol/L Carbon Dioxide 28 (21-32) mmol/L Anion Gap 8 (3-11) BUN 10 (6-23) mg/dl Creatinine 0.86 (0.6-1.2) mg/dl Est Cr Clr Drug Dosing Not Reportable Est GFR ( Amer) 77.1 ml/min Est GFR (Non-Af Amer) 66.6 ml/min BUN/Creatinine Ratio 11.6 (10-20) Glucose 115 H (70-99(Fasting)) mg/dl Calcium 9.1 (8.6-10.3) mg/dl Total Bilirubin 0.9 (0.2-1.0) mg/dl AST 29 (13-39) U/L ALT 23 (7-52) U/L Alkaline Phosphatase 64 (34-104) U/L Total Protein 6.9 (6.0-8.3) gm/dl Albumin 4.0 (3.4-5.0) gm/dl Globulin 2.9 (2.5-4.0) gm/dl Albumin/Globulin Ratio 1.4 (0.9-2) Urine Color Urine Appearance (Clear) Urine pH (4.5-7.5) Ur Specific [place] (1.000-1.030) Urine Protein (Negative) Urine Glucose (UA) (Negative) Urine Ketones (Negative) Urine Blood (Negative) Urine Nitrite (Negative) Urine Bilirubin (Negative) Urine Urobilinogen (Negative) Ur Leukocyte Esterase (Negative) Urine WBC (Auto) (0-5) /hpf Urine RBC (Auto) (0-4) /hpf U Hyaline Cast (Auto) (0-5) /lpf U Epithel Cells (Auto) (0-5) /lpf Urine Bacteria (Auto) (Negative) SARS-CoV-2 (PCR) Cancelled Influenza Type A (PCR) Cancelled Influenza Type B (PCR) Cancelled RSV (RT-PCR) Cancelled SARS-CoV-2, RNA, NAAT (NEGATIVE) 11/21/22 11/21/22 Range/Units 21:53 23:39 WBC (4.8-10.8) K/ul RBC (4.20-5.40) M/uL Hgb (12.0-16.0) g/dl Hct (37.0-47.0) % MCV (80.0-100.0) fL MCH (25.0-34.0) pg MCHC (32.0-36.0) g/dL RDW Std Deviation (36.4-46.3) fL RDW Coeff of [place] (11.5-14.5) % Plt Count (130-400) K/uL MPV (9.4-12.4) fL Immature Gran % (Auto) % Neut % (Auto) % Lymph % (Auto) % [place] % (Auto) % Eos % (Auto) % Baso % (Auto) % Neut # (Auto) (1.40-6.50) K/uL Lymph # (Auto) (1.20-3.40) K/uL [place] # (Auto) (0.11-0.59) K/uL Eos # (Auto) (0.00-0.50) K/uL Baso # (Auto) (0.00-0.20) K/uL Immature Gran # (Auto) (0.01-0.20) K/uL Sodium (136-145) mmol/L Potassium (3.5-5.1) mmol/L Chloride (98-107) mmol/L Carbon Dioxide (21-32) mmol/L Anion Gap (3-11) BUN (6-23) mg/dl Creatinine (0.6-1.2) mg/dl Est Cr Clr Drug Dosing Est GFR ( Amer) ml/min Est GFR (Non-Af Amer) ml/min BUN/Creatinine Ratio (10-20) Glucose (70-99(Fasting)) mg/dl Calcium (8.6-10.3) mg/dl Total Bilirubin (0.2-1.0) mg/dl AST (13-39) U/L ALT (7-52) U/L Alkaline Phosphatase (34-104) U/L Total Protein (6.0-8.3) gm/dl Albumin (3.4-5.0) gm/dl Globulin (2.5-4.0) gm/dl Albumin/Globulin Ratio (0.9-2) Urine Color Dark Yellow Urine Appearance Clear (Clear) Urine pH 7.5 (4.5-7.5) Ur Specific [place] 1.021 (1.000-1.030) Urine Protein Trace H (Negative) Urine Glucose (UA) Negative (Negative) Urine Ketones Trace H (Negative) Urine Blood Negative (Negative) Urine Nitrite Negative (Negative) Urine Bilirubin Negative (Negative) Urine Urobilinogen Negative (Negative) Ur Leukocyte Esterase 1+ H (Negative) Urine WBC (Auto) 10-30 H (0-5) /hpf Urine RBC (Auto) 0-4 (0-4) /hpf U Hyaline Cast (Auto) 1-5 (0-5) /lpf U Epithel Cells (Auto) 20-30 H (0-5) /lpf Urine Bacteria (Auto) Negative (Negative) SARS-CoV-2 (PCR) Influenza Type A (PCR) Influenza Type B (PCR) RSV (RT-PCR) SARS-CoV-2, RNA, NAAT POSITIVE A* (NEGATIVE) Imaging Data Attestation: I personally reviewed and interpreted this imaging study as follows: Radiologist's Impression: Chest X-Ray 11/21/22 20:32 SINGLE VIEW CHEST CLINICAL HISTORY: Cough and fever. FINDINGS: 2 AP upright chest radiographs are compared to study dated 11/13/2020. The patient is status post midline sternotomy. The heart is enlarged noting atherosclerotic calcification of the thoracic area. The pulmonary vasculature is noncongested. The lungs and pleural spaces are clear. No pneumothorax is seen. The skeletal structures are osteopenic. The bony thorax is grossly intact. IMPRESSION: No active disease in the chest. ACT 112: Negative or not required by law. Electronically signed by: Talha Storey M.D. 11/21/2022 10:00 PM MDM Narrative Continuous bus driver/monitor: Order was placed for continuous bus driver/monitor. Patient was placed on the bus driver/monitor. Patient was noted to be in normal sinus rhythm at an initial rate of 70 bpm. The patient is a 72-year-old female who presents today for evaluation of generalized weakness and COVID-19 infection. I did speak with the patient's , who states that she has been more confused than usual and has been very weak. He has had trouble taking care of her at home due to the weakness. Labs revealed no leukocytosis, anemia or concerning electrolyte abnormalities. She is positive for COVID. Unfortunately the patient's is unable to care for her at home therefore she will need admitted. The case was discussed with the hospitalist service, who agreed to evaluate patient for further care. Impression COVID-19, Generalized weakness, Confusion Discharge Plan Visit Data Chief Complaint: Illness ED Provider: Gilmer Norris ED Midlevel Provider: Michelle Julian Discharge Problem: COVID-19, Generalized weakness, Confusion Patient Disposition: Admitted As Inpatient Discharge Instructions Interventions: ED Discharge Assessment Last Done: 11/22/22 02:44
--- NOTE | 2022-11-22 00:53 | Emergency Department Note ---
ED Visit Note Physician Evaluation Note: I have personally evaluated and examined this patient. I agree with assessment and plan of Michelle Butterfield PA-C. Patient 72-year-old female worsening weakness. On examination she is is in no distress she is breathing comfortably with good vitals. Unfortunately patient is too weak to go home secondary to her COVID infection. Hospitalist consulted for further management. Gilmer Norris MD
--- NOTE | 2022-11-22 01:39 | History & Physical Report ---
Date of Service November 22, 2022 Assessment & Plan (1) COVID-19 virus infection: (2) General weakness: (3) Confusion: (4) Vascular dementia without behavioral disturbance: (5) Chronic cerebral ischemia: (6) Cerebral amyloid angiopathy: (7) GERD (gastroesophageal reflux disease): (8) Asthma: (9) Hypertension: (10) Stumbling gait: Plan General weakness/confusion/ongoing stumbling gait/chronic cerebral ischemia/vascular dementia- Patient appears to have had ongoing difficulties with her not being able to care for her at home. She is positive for COVID-19 infection, however, pulse ox is 99% on room air, and unclear how much this is having any part to her symptoms Consult PT/OT COVID-19 infection- Pulse ox is 99% on room air No symptoms of shortness of breath, dyspnea exertion or cough Patient has Paxlovid filled from the outpatient setting, that will place on while in hospital COVID-19 precautions CAD/hypertension- Continue aspirin and metoprolol Hold lisinopril History of Present Illness Chief Complaint: The patient presents to the emergency department with her , due to concerns regarding generalized weakness and fatigue, and a positive home COVID test, for which she was called and Paxlovid by her outpatient PCP, but has not started the dosing yet Primary Care Provider: BARRY Torres The patient is a 72-year-old female with a past medical history including overactive bladder, vascular dementia, impaired fasting glucose, chronic cerebral ischemia, cerebral amyloid angiopathy, mild aortic stenosis, GERD, nonocclusive CAD, cardiac arrest, depression with anxiety and hypertension. Patient is unsure why she was brought into the emergency department today. She reports that she has been a little more fatigued and weak than usual. She had a positive COVID test as an outpatient, and family had called PCP, who called in a prescription for Paxlovid which she has not taken yet. reports he is unable to take care of her at home at this time, and she is being admitted to the hospital for further care and treatment Allergies Allergy/AdvReac Type Severity Reaction Status Date / Time aspirin Allergy Mild makes her Verified 11/22/22 00:36 sick metoprolol Allergy Mild makes her Verified 11/22/22 00:36 sick Sulfa (Sulfonamide Allergy Unknown Unknown Verified 11/22/22 00:36 Antibiotics) mayonnaise AdvReac Mild "makes me Verified 11/22/22 00:36 sick and throws up" Home Medications Medication Instructions Recorded Confirmed Type cholecalciferol (vitamin D3) 50 50 mcg PO QPM 08/07/20 11/22/22 History mcg (2,000 unit) capsule cyanocobalamin (vitamin B-12) 1,000 mcg PO QPM 08/07/20 11/22/22 History 1,000 mcg tablet (Vitamin B-12) multivitamin 1 tab PO QPM 08/07/20 11/22/22 History aspirin 81 mg tablet,delayed 81 mg PO HS 08/11/21 11/22/22 History release alendronate 70 mg tablet 70 mg PO WEEKLY #12 tabs 12/17/21 11/22/22 Rx topiramate 25 mg tablet 25 mg PO BID #180 tabs 04/22/22 11/22/22 Rx atorvastatin 80 mg tablet 80 mg PO HS #90 tabs 10/08/22 11/22/22 Rx metoprolol succinate 25 mg 25 mg PO QAM #90 tabs 10/08/22 11/22/22 Rx tablet,extended release 24 hr fluticasone furoate 100 1 inh inhalation DAILY 10/20/22 11/22/22 History mcg-vilanterol 25 mcg/dose inhalation powder (Breo Ellipta) lisinopril 5 mg tablet 5 mg PO QAM #90 tabs 11/05/22 11/22/22 Rx pantoprazole 40 mg tablet,delayed 40 mg PO QAM #90 tabs 11/05/22 11/22/22 Rx release (Protonix) nirmatrelvir 300 mg (150 mg See Rx Instructions PO .COMPLEX 5 11/21/22 11/22/22 Rx x2)-ritonavir 100 mg tablet,dose days #30 tabs pack (Paxlovid) benzonatate 100 mg capsule 100 mg PO TID PRN Cough 11/22/22 11/22/22 History Past Med/Surg History Medical History Arrhythmia "skips a beat", old, nothing new Asthma inhaler daily Asymptomatic menopausal state Cardiac arrest (~10/21/20) per Dr. Horn's note "The mechanism of her cardiac arrest appeared to be hypoxia. She was noted to have evidence of cyanosis prior to losing consciousness. This occurred while eating. There were no indications of malignant arrhythmia or need for defibrillation. No cardioversion or defibrillation was performed during her resuscitation." Depression with anxiety Dyslipidemia Esophageal abnormality tortuous esophagus Forgetfulness Hiatal hernia History of esophageal dilatation History of urinary urgency Hypertension Long QT interval Lumbar facet joint syndrome Orthostatic hypotension Osteoarthritis Stumbling gait BLE weakness--pt denies need for any assistive devices when ambulating Transient ischemic attack (TIA) >5 years ago, [facility] neuro Urinary incontinence Surgical History H/O section X 2 History of cardiac cath (~10/21/20) d/t NSTEMI @ [facility], no stents placed--follows with Dr. Horn History of cataract surgery bilateral History of esophagogastroduodenoscopy (EGD) 08/08/20 [place] History of heart surgery at 13 years old, VSD repair S/P epidural steroid injection Family History Mother Myocardial infarction Father Myocardial infarction Other No family history of adverse response to anesthesia Denies family history of Ovarian cancer Prostate cancer Breast cancer Colorectal cancer Social History Smoking Status: Never smoker Tobacco Type: Cigarettes Second Hand Exposure: Yes ( smoked); Do You Dip or Chew Tobacco: No; Hx Alcohol Use: No Hx Substance Use: No Preferred Language: Kyrgyz Communication Ability: Effective Visual Impairment: Limited Hearing Ability: Normal Service Advocate Contact Required: No Beliefs That Will Affect Care: None marital status: Current Living Situation: Spouse current occupational status: retired 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 Feels Safe at Home: Yes Childhood Exposure to Second-Hand Smoke: Yes Diet: regular caffeine: Yes Dental Care, Regularly: No Physical Activity Frequency: 3-4 Times per Week Seatbelt Use: always Sunscreen Use: No Assistive Devices: Denture - Upper Review of Systems Review of Systems: The patient denies chest pain, palpitations, shortness of breath, dyspnea on exertion, cough, lower extremity swelling, sore throat, fevers, chills, sweats, weight change, fatigue, nausea, vomiting, diarrhea , constipation, abdominal pain, pelvic pain, blood in urine or stool, dysuria, urinary frequency or urgency, lightheadedness, dizziness, headache, loss of consciousness, rash, abnormal bruising or bleeding, focal or generalized weakness, numbness or tingling in arms or legs, generalized arthralgias or myalgias, back or neck pain, or night sweats. The review of systems is otherwise negative other than for that already noted above, and at least 10 systems have been reviewed. Physical Exam Physical Exam: The patient is awake, alert and oriented 3, well developed and well nourished, normocephalic and atraumatic, lying in bed and in no acute distress. HEENT--PERRL, EOMI, mucous membranes and oropharynx dry. Neck--supple. No JVD. No bruits. Thyroid normal, trachea midline, no adenopathy. Heart--normal S1 and S2. No murmurs, rubs or gallops. Lungs--clear bilaterally, no respiratory distress, no accessory muscle use. Abdomen--normal bowel sounds and soft. Nontender. Nondistended, no hernias or masses, no organomegaly. Extremities--no cyanosis or clubbing. No edema. Dermatologic--normal skin turgor, normal color, no abnormal lymph nodes, no rash. Neurologic--cranial nerves II through XII grossly intact. Rheumatologic--normal range of motion. Psychiatric--normal affect. Results & Data Results & Data Vital Signs (Past 12 Hours) Vital Signs Temp Pulse Pulse Resp BP BP Pulse Ox 11/22/22 00:00 75 24 124/68 96 11/21/22 22:00 86 11/21/22 22:22 75 18 92/69 L 92 11/21/22 20:20 37.3 C 75 18 109/59 L 95 O2 Del Method 11/22/22 00:00 11/21/22 22:00 11/21/22 22:22 Room Air 11/21/22 20:20 Room Air Laboratory Results Laboratory Results WBC 7.38 K/ul (4.8-10.8) 11/21/22 21:53 RBC 4.14 M/uL (4.20-5.40) L 11/21/22 21:53 Hgb 13.2 g/dl (12.0-16.0) 11/21/22 21:53 Hct 39.4 % (37.0-47.0) 11/21/22 21:53 MCV 95.2 fL (80.0-100.0) 11/21/22 21:53 MCH 31.9 pg (25.0-34.0) 11/21/22 21:53 MCHC 33.5 g/dL (32.0-36.0) 11/21/22 21:53 RDW Std Deviation 48.7 fL (36.4-46.3) H 11/21/22 21:53 RDW Coeff of [place] 14.0 % (11.5-14.5) 11/21/22 21:53 Plt Count 149 K/uL (130-400) 11/21/22 21:53 MPV 11.0 fL (9.4-12.4) 11/21/22 21:53 Immature Gran % (Auto) 0.5 % 11/21/22 21:53 Neut % (Auto) 75.6 % 11/21/22 21:53 Lymph % (Auto) 11.0 % 11/21/22 21:53 [place] % (Auto) 12.1 % 11/21/22 21:53 Eos % (Auto) 0.1 % 11/21/22 21:53 Baso % (Auto) 0.7 % 11/21/22 21:53 Neut # (Auto) 5.58 K/uL (1.40-6.50) 11/21/22 21:53 Lymph # (Auto) 0.81 K/uL (1.20-3.40) L 11/21/22 21:53 [place] # (Auto) 0.89 K/uL (0.11-0.59) H 11/21/22 21:53 Eos # (Auto) 0.01 K/uL (0.00-0.50) 11/21/22 21:53 Baso # (Auto) 0.05 K/uL (0.00-0.20) 11/21/22 21:53 Immature Gran # (Auto) 0.04 K/uL (0.01-0.20) 11/21/22 21:53 Sodium 138 mmol/L (136-145) 11/21/22 21:53 Potassium 3.9 mmol/L (3.5-5.1) 11/21/22 21:53 Chloride 102 mmol/L (98-107) 11/21/22 21:53 Carbon Dioxide 28 mmol/L (21-32) 11/21/22 21:53 Anion Gap 8 (3-11) 11/21/22 21:53 BUN 10 mg/dl (6-23) 11/21/22 21:53 Creatinine 0.86 mg/dl (0.6-1.2) 11/21/22 21:53 Est Cr Clr Drug Dosing Not Reportable 11/21/22 21:53 Est GFR ( Amer) 77.1 ml/min 11/21/22 21:53 Est GFR (Non-Af Amer) 66.6 ml/min 11/21/22 21:53 BUN/Creatinine Ratio 11.6 (10-20) 11/21/22 21:53 Glucose 115 mg/dl (70-99(Fasting)) H 11/21/22 21:53 Calcium 9.1 mg/dl (8.6-10.3) 11/21/22 21:53 Total Bilirubin 0.9 mg/dl (0.2-1.0) 11/21/22 21:53 AST 29 U/L (13-39) 11/21/22 21:53 ALT 23 U/L (7-52) 11/21/22 21:53 Alkaline Phosphatase 64 U/L (34-104) 11/21/22 21:53 Total Protein 6.9 gm/dl (6.0-8.3) 11/21/22 21:53 Albumin 4.0 gm/dl (3.4-5.0) 11/21/22 21:53 Globulin 2.9 gm/dl (2.5-4.0) 11/21/22 21:53 Albumin/Globulin Ratio 1.4 (0.9-2) 11/21/22 21:53 Urine Color Dark Yellow 11/21/22 21:53 Urine Appearance Clear (Clear) 11/21/22 21:53 Urine pH 7.5 (4.5-7.5) 11/21/22 21:53 Ur Specific [place] 1.021 (1.000-1.030) 11/21/22 21:53 Urine Protein Trace (Negative) H 11/21/22 21:53 Urine Glucose (UA) Negative (Negative) 11/21/22 21:53 Urine Ketones Trace (Negative) H 11/21/22 21:53 Urine Blood Negative (Negative) 11/21/22 21:53 Urine Nitrite Negative (Negative) 11/21/22 21:53 Urine Bilirubin Negative (Negative) 11/21/22 21:53 Urine Urobilinogen Negative (Negative) 11/21/22 21:53 Ur Leukocyte Esterase 1+ (Negative) H 11/21/22 21:53 Urine WBC (Auto) 10-30 /hpf (0-5) H 11/21/22 21:53 Urine RBC (Auto) 0-4 /hpf (0-4) 11/21/22 21:53 U Hyaline Cast (Auto) 1-5 /lpf (0-5) 11/21/22 21:53 U Epithel Cells (Auto) 20-30 /lpf (0-5) H 11/21/22 21:53 Urine Bacteria (Auto) Negative (Negative) 11/21/22 21:53 SARS-CoV-2 (PCR) Cancelled 11/21/22 20:48 Influenza Type A (PCR) Cancelled 11/21/22 20:48 Influenza Type B (PCR) Cancelled 11/21/22 20:48 RSV (RT-PCR) Cancelled 11/21/22 20:48 SARS-CoV-2, RNA, NAAT POSITIVE (NEGATIVE) A* 11/21/22 23:39 Impressions Chest X-Ray 11/21/22 20:32 SINGLE VIEW CHEST CLINICAL HISTORY: Cough and fever. FINDINGS: 2 AP upright chest radiographs are compared to study dated 11/13/2020. The patient is status post midline sternotomy. The heart is enlarged noting atherosclerotic calcification of the thoracic area. The pulmonary vasculature is noncongested. The lungs and pleural spaces are clear. No pneumothorax is seen. The skeletal structures are osteopenic. The bony thorax is grossly intact. IMPRESSION: No active disease in the chest. ACT 112: Negative or not required by law. Electronically signed by: Talha Storey M.D. 11/21/2022 10:00 PM Code Status & VTE Plan Code Status Full code VTE Prophylaxis Plan VTE Prophylaxis will be ordered: Yes PG Care Time/CCT Total # of Minutes Spent Total Time Spent with Patient: Total time spent is greater than 50% in coordination of care (as documented) at patient's floor/unit and/or counseling patient: Coding Level of Care Code 69449 INT INP/OBS CARE MIN Diagnoses COVID-19 virus infection U07.1 General weakness R53.1 Confusion R41.0 Vascular dementia without behavioral disturbance F01.50 Chronic cerebral ischemia I67.82 Cerebral amyloid angiopathy E85.4; I68.0 GERD (gastroesophageal reflux disease) K21.9 Asthma J45.909 Hypertension I10 Stumbling gait R26.0
[2022-11-22] MEDS ORDERED: BENZONATATE 100 MG CAPSULE PO PRN (02:43)
[2022-11-22] MEDS ORDERED: NSS + 20MEQ KCL 20 MEQ/1,000 ML BAG IV SCH (02:43)
[2022-11-22] MEDS ORDERED: ONDANSETRON INJ 2 MG/ML 2 ML VIAL IV PRN (02:43)
[2022-11-22] MEDS: ACETAMINOPHEN 325 MG TAB PO PRN ×2 (03:26→15:20)
[2022-11-22 05:18] LABS: Basophils # (auto) 0.03 K/uL (0.00-0.20); Basophils % (auto) 0.5 %; Hematocrit (blood only) 34.1 % (37.0-47.0); Hemoglobin 11.6 g/dl (12.0-16.0); Immature Granulocytes # (auto) 0.02 K/uL (0.01-0.20); Immature Granulocytes % (auto) 0.3 %; Lymphocytes % (auto) 22.2 %; Mean Corpuscular Volume 93.9 fL (80.0-100.0); Monocytes % (auto) 15.4 %; Neutrophils % (auto) 61.6 %; Platelet Count 148 K/uL (130-400); RDW Coefficient of Variation 14.1 % (11.5-14.5); RDW Standard Deviation 48.4 fL (36.4-46.3); Red Blood Count 3.63 M/uL (4.20-5.40); White Blood Count 5.85 K/ul (4.8-10.8)
[2022-11-22 05:24] LABS: Albumin Level 3.4 gm/dl (3.4-5.0); BUN Creatinine Ratio 14.9 (10-20); Calcium 8.3 mg/dl (8.6-10.3); Est GFR (African American) 92.5 ml/min; Est GFR (Non-African American) 79.8 ml/min; Phosphorus 3.8 mg/dl (2.5-4.9); Potassium 3.5 mmol/L (3.5-5.1)
--- NOTE | 2022-11-22 06:37 | CT Scan Report ---
Exam(s): CT HEAD Without Contrast EXAM: CT Head Without Intravenous Contrast CLINICAL HISTORY: Reason for exam: confusion, weakness. TECHNIQUE: Axial computed tomography images of the head/brain without intravenous contrast. CTDI is 37.61 mGy and DLP is 624.41 mGy-cm. Automated exposure control was utilized for the study. A dose lowering technique was utilized adhering to the principles of ALARA. COMPARISON: CT head performed 10/18/20 FINDINGS: There is no acute intracranial hemorrhage or major vascular territory infarct. No mass effect or midline shift seen. There is no ventriculomegaly. Scattered hypodensities throughout the periventricular and subcortical white matter are noted, likely sequela of chronic microvascular changes, similar to prior. The calvarium is intact. Bilateral lens replacements noted. Mild mucosal thickening of the paranasal sinuses. The mastoid air cells are clear. IMPRESSION: No acute intracranial pathology. Stable sequela of chronic microvascular ischemic angiopathy. Electronically signed by: Diego Trujillo M.D. 11/22/22 06:35 AM
--- NOTE | 2022-11-22 07:55 | Hospitalist Progress Note ---
Date of Service November 22, 2022 Assessment & Plan (1) COVID-19 virus infection: Plan: metabolic encephalopathy with weakness and confusion from Covid infection POA no pulmonary symptoms at present, clear CXR and good oxygen saturations Patient has Paxlovid filled from the outpatient setting, that will place on while in hospital Patient appears to have had ongoing difficulties with her not being able to care for her at home. Consult PT/OT (2) Vascular dementia without behavioral disturbance: Plan: Pt with confirmed sequela of chronic microvascular ischemic angiopathy on brain imaging History of cerebral amyloid angiopathy (3) Hypertension: Plan: CAD/hypertension- Continue aspirin and metoprolol Hold lisinopril (4) Asthma: Plan: chronic and stable continue fluticasone-vilanterol Plan Of note pt had cardiac arrest 11/09 felt to be from long Qtc due to haldol Admission and Anticipated Discharge Date Admission Date: November 22, 2022 Subjective Awake and alert and pleasant. Is now beginning to have some diarrhea. Has a known contact is COVID-positive. Did bring her Paxlovid in from home. Physical Exam Physical Exam: No respiratory distress lungs are clear to examination abdomen NABS soft and nontender Results & Data Results & Data Vital Signs (Past 12 Hours) Vital Signs Temp Pulse Pulse Resp BP BP Pulse Ox 11/22/22 07:04 80 11/22/22 06:28 60 18 95 11/22/22 03:15 11/22/22 03:15 11/22/22 03:15 67 21 136/81 97 11/22/22 02:29 75 11/22/22 02:00 68 20 141/65 H 97 11/22/22 00:00 75 24 124/68 96 11/21/22 22:00 86 11/21/22 22:22 75 18 92/69 L 92 11/21/22 20:20 99.1 F 75 18 109/59 L 95 Pulse Ox O2 Del Method O2 Del Method 11/22/22 07:04 11/22/22 06:28 Room Air 11/22/22 03:15 Room Air 11/22/22 03:15 96 Room Air 11/22/22 03:15 Room Air 11/22/22 02:29 11/22/22 02:00 11/22/22 00:00 11/21/22 22:00 11/21/22 22:22 Room Air 11/21/22 20:20 Room Air PG Care Time/CCT Total # of Minutes Spent Total Time Spent with Patient: Total time spent is greater than 50% in coordination of care (as documented) at patient's floor/unit and/or counseling patient: Coding Level of Care Code None Diagnoses COVID-19 virus infection U07.1 Vascular dementia without behavioral disturbance F01.50 Hypertension I10 Asthma J45.909
[2022-11-22] MEDS: lisinopril 5 MG TAB PO SCH (08:40)
[2022-11-22] MEDS: PANTOprazole 40 MG TAB PO SCH (08:40)
[2022-11-22] MEDS: TOPIRAMATE 25 MG TAB PO SCH ×2 (08:40→22:35)
[2022-11-22] MEDS: METOPROLOL SUCC 25MG EXT REL TAB PO SCH (08:41)
[2022-11-22] MEDS: FLUTICASONE/VILANTEROL 100/25MCG 14 PUFFS/INHALER INH SCH (08:43)
[2022-11-22] MEDS ORDERED: CYANOCOBALAMIN (B-12) 500 MCG TABLET PO SCH (21:00)
[2022-11-22] MEDS ORDERED: ATORVASTATIN 40 MG TAB PO SCH (21:00)
[2022-11-22] MEDS ORDERED: MULTIVITAMIN TAB PO SCH (21:00)
[2022-11-22] MEDS ORDERED: ASPIRIN 81 MG ECTAB PO SCH (21:00)
[2022-11-22] MEDS ORDERED: CHOLECALCIFEROL 1,000 UNITS 25 MCG TAB PO SCH (21:00)
[2022-11-23] MEDS: FLUTICASONE/VILANTEROL 100/25MCG 14 PUFFS/INHALER INH SCH (07:36)
[2022-11-23] MEDS: lisinopril 5 MG TAB PO SCH (07:37)
[2022-11-23] MEDS: METOPROLOL SUCC 25MG EXT REL TAB PO SCH (07:37)
[2022-11-23] MEDS: PANTOprazole 40 MG TAB PO SCH (07:37)
[2022-11-23] MEDS: TOPIRAMATE 25 MG TAB PO SCH (07:37)
[2022-11-23 08:03] LABS: Basophils # (auto) 0.02 K/uL (0.00-0.20); Basophils % (auto) 0.5 %; Hematocrit (blood only) 39.5 % (37.0-47.0); Hemoglobin 12.9 g/dl (12.0-16.0); Immature Granulocytes # (auto) 0.01 K/uL (0.01-0.20); Immature Granulocytes % (auto) 0.2 %; Lymphocytes # (auto) 1.48 K/uL (1.20-3.40); Lymphocytes % (auto) 35.7 %; Mean Corpuscular Hemoglobin 31.8 pg (25.0-34.0); Mean Corpuscular Hgb Conc 32.7 g/dL (32.0-36.0); Mean Corpuscular Volume 97.3 fL (80.0-100.0); Mean Platelet Volume 11.1 fL (9.4-12.4); Monocytes # (auto) 0.74 K/uL (0.11-0.59); Monocytes % (auto) 17.9 %; Neutrophils # (auto) 1.89 K/uL (1.40-6.50); Neutrophils % (auto) 45.7 %; Platelet Count 149 K/uL (130-400); RDW Coefficient of Variation 14.2 % (11.5-14.5); Red Blood Count 4.06 M/uL (4.20-5.40); White Blood Count 4.14 K/ul (4.8-10.8)
[2022-11-23 08:19] LABS: Albumin Level 3.6 gm/dl (3.4-5.0); BUN Creatinine Ratio 12.5 (10-20); Calcium 8.8 mg/dl (8.6-10.3); Creatinine Clr Calc Pharmacy 61.7 ml/min; Est GFR (African American) 84.2 ml/min; Est GFR (Non-African American) 72.6 ml/min; Phosphorus 3.9 mg/dl (2.5-4.9); Potassium 4.7 mmol/L (3.5-5.1)
--- NOTE | 2022-11-23 09:12 | Hospitalist Progress Note ---
Date of Service November 23, 2022 Assessment & Plan (1) COVID-19 virus infection: Plan: metabolic encephalopathy with weakness and confusion from Covid infection POA continues without pulmonary symptoms at present, clear CXR and good oxygen saturations Patient has Paxlovid filled from the outpatient setting, that will place on while in hospital prehospital GI distress has resolved Patient appears to have had ongoing difficulties with her not being able to care for her at home. (2) Vascular dementia without behavioral disturbance: Plan: Pt with confirmedsequela of chronic microvascular ischemic angiopathy on brain imaging (3) Hypertension: Plan: CAD/hypertension- Continue aspirin and metoprolol Hold lisinopril (4) Asthma: Plan: chronic and stable continue fluticasone-vilanterol Admission and Anticipated Discharge Date Admission Date: November 22, 2022 Subjective Patient is pleasantly confused she says she wants to go home. We cannot reach her . She initially was brought into our facility because her could not care for her. She appears to be in about a similar condition as when she arrived. She has significant memory loss. She does have a diagnosis of COVID but not manifesting any pulmonary or GI symptoms at this time she is on typical isolation for that Physical Exam Physical Exam: she is awake she is oriented x1 she has no apparent distress she is ambulating about her room lungs are clear without wheezes or crackles abdomen NABS Results & Data Results & Data Vital Signs (Past 12 Hours) Vital Signs Temp Pulse Pulse Resp BP Pulse Ox O2 Del Method 11/23/22 07:27 98.6 F 60 18 139/80 96 Room Air 11/23/22 03:00 Room Air 11/22/22 23:43 57 L 11/22/22 23:41 99.1 F 66 20 150/93 H 94 Room Air Laboratory Results reviewed chemistry reviewed CBC attempted to call was met with voicemail PG Care Time/CCT Total # of Minutes Spent Total Time Spent with Patient: Total time spent is greater than 50% in coordination of care (as documented) at patient's floor/unit and/or counseling patient: Coding Level of Care Code 44559 SUB INP/OBS CARE 2/35MIN Diagnoses COVID-19 virus infection U07.1 Vascular dementia without behavioral disturbance F01.50 Hypertension I10 Asthma J45.909
--- NOTE | 2022-11-23 16:55 | Discharge Summary ---
Date of Service November 23, 2022 Admission HPI Per Admitting Provider The patient is a 72-year-old female with a past medical history including overactive bladder, vascular dementia, impaired fasting glucose, chronic cerebral ischemia, cerebral amyloid angiopathy, mild aortic stenosis, GERD, nonocclusive CAD, cardiac arrest, depression with anxiety and hypertension. Patient is unsure why she was brought into the emergency department today. She reports that she has been a little more fatigued and weak than usual. She had a positive COVID test as an outpatient, and family had called PCP, who called in a prescription for Paxlovid which she has not taken yet. reports he is unable to take care of her at home at this time, and she is being admitted to the hospital for further care and treatment Principal Diagnosis covid infection, resolving metabolic encephalopathy resolved Discharge Exam she is awake she is oriented x1 she has no apparent distress she is ambulating about her room lungs are clear without wheezes or crackles abdomen NABS Discharge Data Allergies Allergy/AdvReac Type Severity Reaction Status Date / Time aspirin Allergy Mild makes her Verified 11/22/22 00:36 sick metoprolol Allergy Mild makes her Verified 11/22/22 00:36 sick Sulfa (Sulfonamide Allergy Unknown Unknown Verified 11/22/22 00:36 Antibiotics) mayonnaise AdvReac Mild "makes me Verified 11/22/22 00:36 sick and throws up" Consultations 11/22/22 00:53 ED Decision to Admit Stat Ordered Studies 11/22/22 01:31 CT head/brain wo con Stat Hospital Course (1) COVID-19 virus infection: metabolic encephalopathy with weakness and confusion from Covid infection POA continues without pulmonary symptoms at present, clear CXR and good oxygen saturations Patient has Paxlovid filled from the outpatient setting, reportedly pharmacy did not cofirm, did not start and will not recommend to start at dc home isolation instructions given prehospital GI distress has resolved Patient appears to have had ongoing difficulties with her not being able to care for her at home. 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 Quarantine means attempting to stay away from people who have not had an active covid infection in the past, and if you have to be around others to wear a mask even if you are indoors, do not share a room to sleep in with others until you are out of quarantine. If you still have symptoms at the 10th day, continue to quarantine until you are symptom free for 48 hours Addtl Community Relations Specialist Provider Instructions: plenty of hydration and good food rest as much as needed since you have improved without paxovid I do not think we need to start it at this time Pending Studies at Discharge: No Stand-Alone Forms: [facility] Quickshift, Smoking Cessation Medications and DC Order Prescriptions: Continued fluticasone furoate-vilanterol [Breo Ellipta] 100-25 mcg/dose blister with device 1 inh inhalation DAILY alendronate 70 mg tablet 70 mg PO WEEKLY Qty: 12 5RF Rx Instructions: Wednesday topiramate 25 mg tablet 25 mg PO BID Qty: 180 3RF atorvastatin 80 mg tablet 80 mg PO HS Qty: 90 3RF metoprolol succinate 25 mg tablet extended release 24 hr 25 mg PO QAM Qty: 90 3RF pantoprazole [Protonix] 40 mg tablet,delayed release (DR/EC) 40 mg PO QAM Qty: 90 3RF lisinopril 5 mg tablet 5 mg PO QAM Qty: 90 3RF aspirin 81 mg tablet,delayed release (DR/EC) 81 mg PO HS multivitamin Tablet 1 tab PO QPM cyanocobalamin (vitamin B-12) [Vitamin B-12] 1,000 mcg Tablet 1,000 mcg PO QPM cholecalciferol (vitamin D3) 50 mcg (2,000 unit) capsule 50 mcg PO QPM benzonatate 100 mg capsule 100 mg PO TID PRN (Reason: Cough) Discontinued Paxlovid 300 mg (150 mg x 2)-100 mg tablets,dose pack See Rx Instructions PO .COMPLEX 5 Days Qty: 30 0RF Rx Instructions: Take TWO 150 mg tablets of nirmatrelvir with ONE 100 mg tablet of ritonavir twice daily for 5 days PO Discharge Orders: Discharge Order (Routine); Ordered 11/23/22 Ordered By: Tyree Bruno Admission Data Admit Date/Time: 11/22/22 01:35 Attending Provider: Tyree Bruno Admit Provider: Arash Torres Primary Care Provider: Mary Carmen Other Providers: Arash Torres Coding Level of Care Code 13071 INP/OBS DISCH >30 MIN Diagnoses COVID-19 virus infection U07.1 Vascular dementia without behavioral disturbance F01.50 Hypertension I10 Asthma J45.909
--- NOTE | 2022-11-23 22:21 | Electrocardiogram Report ---
Test Reason : Blood Pressure : / mmHG Vent. Rate : 070 BPM Atrial Rate : 070 BPM P-R Int : 172 ms QRS Dur : 110 ms QT Int : 460 ms P-R-T Axes : 066 039 044 degrees QTc Int : 496 ms Normal sinus rhythm Nonspecific ST abnormality Abnormal ECG When compared with ECG of 13-NOV-2020 19:50, No significant change was found Confirmed by Renny Mckeon ([id number]) on 11/23/2022 10:20:29 PM Referred By: REFERRED SELF Confirmed By:Renny Mckeon
== END 2022-11-23 17:35 | disposition home or self-care (01) | DRG 177 ==
LOC: ED 20:06 → INTOOBSV 11-22 01:35 → SUATTDRO 11-22 01:35 → EDINP 11-22 01:35 → 2W 11-22 02:44 → 3E 11-23 10:01

== ENCOUNTER 2024-07-04 14:22 | Inpatient (IN) ==
--- NOTE | 2024-07-04 14:52 | Emergency Department Note ---
History of Present Illness General Chief complaint: Fall Stated complaint: BAD FALL Time Seen by Provider: 07/04/24 14:35 History of Present Illness Maximum Pain Intensity: 9 This is a [id number] 74-year-old female that presents to the emergency department via private vehicle with complaints of "fall, pain". The patient notes just prior to arrival she walked out to her mailbox and was carrying an umbrella. It was raining. Immediately then she notes there was a quick ly of wind followed by sleet. She then slipped on the wet ground and the wind pulled the umbrella causing her to fall. She struck the left side of her face, left shoulder, bilateral hands and bilateral knees. She notes most of her pain is in the left medial hand and points to the dorsal left fifth MCP joint where there is a small laceration as a location of pain. She does still have wedding band rings on the left fourth finger and the digit is beginning to swell. She denies loss of consciousness. She denies any anticoagulant use but was not entirely sure if she is on anticoagulants. Per review of the EMR she is on low-dose aspirin. Patient unsure of her tetanus vaccine status. Home Medications Medication Instructions Recorded Confirmed Type cholecalciferol (vitamin D3) 50 50 mcg PO QPM 08/07/20 07/04/24 History mcg (2,000 unit) capsule cyanocobalamin (vitamin B-12) 1,000 mcg PO QPM 08/07/20 07/04/24 History 1,000 mcg tablet (Vitamin B-12) multivitamin 1 tab PO QPM 08/07/20 07/04/24 History aspirin 81 mg tablet,delayed 81 mg PO HS 08/11/21 07/04/24 History release fluticasone furoate 100 1 inh inhalation DAILY 10/20/22 07/04/24 History mcg-vilanterol 25 mcg/dose inhalation powder (Breo Ellipta) ipratropium 0.5 mg-albuterol 3 mg 3 ml inhalation Q4H PRN wheezing 12/03/22 07/04/24 Rx (2.5 mg base)/3 mL nebulization #180 mL soln nebulizer accessories #1 ea 12/03/22 02/10/24 Rx nebulizer and compressor #1 ea 12/03/22 02/10/24 Rx baclofen 10 mg tablet 10 mg PO TID PRN muscle spasm #30 01/12/23 07/04/24 Rx tabs calcium carbonate (Calcium 600) 600 mg PO DAILY 02/03/23 07/04/24 History ibuprofen 600 mg tablet 600 mg PO Q8H PRN Pain 06/07/23 07/04/24 History lisinopril 5 mg tablet 5 mg PO QAM #90 tabs 10/18/23 07/04/24 Rx albuterol sulfate 90 mcg/actuation 1 inh inhalation QID PRN shortness 11/23/23 07/04/24 Rx aerosol inhaler of breath or wheezing #8.5 grams atorvastatin 80 mg tablet 80 mg PO HS #90 tabs 12/02/23 07/04/24 Rx metoprolol succinate 25 mg 25 mg PO QAM #90 tabs 12/02/23 07/04/24 Rx tablet,extended release 24 hr oxybutynin chloride 15 mg 15 mg PO QAM #90 tabs 01/11/24 07/04/24 Rx tablet,extended release 24 hr pantoprazole 40 mg tablet,delayed 40 mg PO QAM #90 tabs 02/10/24 07/04/24 Rx release (Protonix) topiramate 25 mg tablet 25 mg PO BID #180 tabs 05/01/24 07/04/24 Rx hydrochlorothiazide 12.5 mg tablet 12.5 mg PO QAM PRN swelling 07/04/24 07/04/24 History Allergies Allergy/AdvReac Type Severity Reaction Status Date / Time aspirin Allergy Mild makes her Verified 02/10/24 13:24 sick metoprolol Allergy Mild makes her Verified 02/10/24 13:24 sick Sulfa (Sulfonamide Allergy Unknown Unknown Verified 02/10/24 13:24 Antibiotics) [facility] AdvReac Mild "makes me Verified 02/10/24 13:24 sick and throws up" Past Med/Surg History Problem List (Updated 07/04/24 @ 20:23 by Harpal Rosenbaum PA-C) Acute bilateral knee pain (Acute) Acute pain of left shoulder (Acute) Open fracture of left hand (Acute) Fall (Acute) Open metacarpal fracture Dependent edema Cough URI (upper respiratory infection) Generalized weakness (Acute) Confusion (Acute) Recurrent low back pain Pelvic pain Microscopic hematuria Overactive bladder Internal hemorrhoid Vitamin D deficiency Vascular dementia without behavioral disturbance Urinary incontinence Osteoporosis Osteoarthritis of knee Impaired fasting glucose Gait disturbance Chronic diarrhea of unknown origin Chronic cerebral ischemia Cerebral amyloid angiopathy Aortic stenosis, mild Essential tremor Chronic headaches Thoracic facet syndrome Sacroiliitis Encounter for pre-operative examination GERD (gastroesophageal reflux disease) Left ventricular aneurysm Abnormal CT scan, esophagus Dysphagia 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 Horn's note "The mechanism of her cardiac arrest appeared to be hypoxia. She was noted to have evidence of cyanosis prior to losing consciousness. This occurred while eating. There were no indications of malignant arrhythmia or need for defibrillation. No cardioversion or defibrillation was performed during her resuscitation." Depression with anxiety Hypertension (Chronic) Lumbar facet joint syndrome Stumbling gait BLE weakness--pt denies need for any assistive devices when ambulating Medical History History of esophageal dilatation Esophageal abnormality tortuous esophagus Osteoarthritis Hiatal hernia [facility] Forgetfulness Arrhythmia "skips a beat", old, nothing new Urinary incontinence History of urinary urgency Asymptomatic menopausal state Orthostatic hypotension Surgical History History of cardiac cath (~10/21/20) d/t NSTEMI @ [facility], no stents placed--follows with Dr. Horn History of cataract surgery bilateral History of esophagogastroduodenoscopy (EGD) 08/08/20 ME S/P epidural steroid injection H/O section X 2 History of heart surgery at 13 years old, VSD repair Family History Mother Myocardial infarction Father Myocardial infarction Other No family history of adverse response to anesthesia Denies family history of Ovarian cancer Prostate cancer Breast cancer Colorectal cancer Social History Smoking Status: Never smoker Second Hand Exposure: Yes ( is a former smoker); Do You Dip or Chew Tobacco: No; Hx Alcohol Use: No Hx Substance Use: No Preferred Language: Spanish Communication Ability: Effective Visual Impairment: Limited Hearing Ability: Normal Deliverer Pharmacy Required: No Beliefs That Will Affect Care: None marital status: Current Living Situation: Spouse current occupational status: retired 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 Feels Safe at Home: Yes Childhood Exposure to Second-Hand Smoke: Yes Diet: regular caffeine: Yes Dental Care, Regularly: No Physical Activity Frequency: 3-4 Times per Week Seatbelt Use: always Sunscreen Use: No Assistive Devices: Cane, Denture - Upper and Walker Review of Systems A total of 10 systems reviewed and were otherwise negative Physical Exam Vital Signs Vital Signs - 24 hr 07/04/24 14:25 07/04/24 19:28 07/04/24 19:53 Temperature 36.7 C Temperature Source Temporal Artery Scan Pulse Rate 63 91 H 91 H Respiratory Rate 18 18 Respiratory Effort / Characteristics Non-Labored Spontaneous Respiratory Depth Normal Respiratory Pattern Regular Blood Pressure 142/78 H 122/100 Blood Pressure Mean 99 Pulse Oximetry 97 96 Oxygen Delivery Method Room Air Room Air Sepsis Recent Fever Within 48 Hours No Sepsis New/Unexplained Change in Mental Status N/A Sepsis Action Taken by Nursing No Action Required VITAL SIGNS - Vital signs and nursing notes were reviewed. Stable and afebrile. GENERAL - 74-year-old female appearing her stated age who is in no acute distress. Communicates well with provider and answers questions appropriately. SKIN -there is a small laceration to the dorsal hand, just proximal to the fifth MCP joint. Small amount of bleeding noted. HEAD - NC/AT. EYES - PERRL with EOMI bilaterally. Sclera anicteric. No hyphema. No subconjunctival hemorrhage. EARS -no blood from the ear canals. No hemotympanum. NOSE - Midline and without cyanosis. No epistaxis or purulent drainage noted. Septum midline without deviation or septal hematoma noted. MOUTH/OROPHARYNX - Without perioral cyanosis. Buccal mucosa pink and moist and without leukoplakia. Tongue midline with equal elevation of palate bilaterally. No tonsillar hypertrophy, erythema, or exudates noted. Fair dentition noted. NECK - Neck with FROM. No C-spine tenderness. No nuchal rigidity. LUNGS - Chest wall symmetric without accessory muscle use, intercostals retractions, or central cyanosis. Normal vesicular breath sounds CTA B/L. No wheezes, rales, or rhonchi appreciated. CARDIAC - RRR ABDOMEN - Abdominal contour normal without pulsations or visible masses. BS normoactive all four quadrants. No tenderness, palpable masses, hepatosplenomegaly, or ascites noted. EXTREMITIES - No clubbing or peripheral cyanosis. There is distal left fifth metacarpal tenderness as well as tenderness to the left shoulder and bilateral knees. +5/5 strength noted in UE/LE bilaterally. NEUROLOGIC - Cranial nerves II through XII grossly intact. PSYCH -alert, oriented and pleasant on exam Course Administered Medications Discontinued Medications Diphtheria/Pertussis/Tetanus Vacc (Diphther/Tetan/Pertus Vaccine (Tdap, Adol/Adult) 0.5ml) 0.5 ml IM .ONCE ONE Stop: 07/04/24 14:54 Last Admin: 07/04/24 16:10 Dose: 0.5 ml Documented By: PALMIRA Cefazolin Sodium (Ancef 2000mg) 2,000 mg in 15 mls @ 3.75 mls/min IV NOW STA Stop: 07/04/24 15:24 Last Admin: 07/04/24 16:11 Dose: 3.75 mls/min Documented By: PALMIRA Medical Decision Making Laboratory Data 07/04/24 16:14 07/04/24 16:14 Lab Results 07/04/24 Range/Units 16:14 WBC 7.21 (4.8-10.8) K/ul RBC 4.08 L (4.20-5.40) M/uL Hgb 12.9 (12.0-16.0) g/dl Hct 38.0 (37.0-47.0) % MCV 93.1 (80.0-100.0) fL MCH 31.6 (25.0-34.0) pg MCHC 33.9 (32.0-36.0) g/dL RDW Std Deviation 44.7 (36.4-46.3) fL RDW Coeff of [place] 13.2 (11.5-14.5) % Plt Count 204 (130-400) K/uL MPV 11.6 (9.4-12.4) fL Immature Gran % (Auto) 0.4 % Neut % (Auto) 56.2 % Lymph % (Auto) 30.1 % [place] % (Auto) 10.0 % Eos % (Auto) 2.5 % Baso % (Auto) 0.8 % Neut # (Auto) 4.05 (1.40-6.50) K/uL Lymph # (Auto) 2.17 (1.20-3.40) K/uL [place] # (Auto) 0.72 H (0.11-0.59) K/uL Eos # (Auto) 0.18 (0.00-0.50) K/uL Baso # (Auto) 0.06 (0.00-0.20) K/uL Immature Gran # (Auto) 0.03 (0.01-0.20) K/uL Sodium 145 (136-145) mmol/L Potassium 3.7 (3.5-5.1) mmol/L Chloride 109 H (98-107) mmol/L Carbon Dioxide 28 (21-32) mmol/L Anion Gap 8 (3-11) BUN 7 (6-23) mg/dl Creatinine 0.70 (0.6-1.2) mg/dl Est Cr Clr Drug Dosing 67.3 ml/min eGFR 89.58 BUN/Creatinine Ratio 10.0 (10-20) Glucose 112 H (70-99(Fasting)) mg/dl Calcium 9.9 (8.6-10.3) mg/dl Total Bilirubin 0.9 (0.2-1.0) mg/dl AST 20 (13-39) U/L ALT 12 (7-52) U/L Alkaline Phosphatase 60 (34-104) U/L Total Protein 7.0 (6.0-8.3) gm/dl Albumin 4.1 (3.4-5.0) gm/dl Globulin 2.9 (2.5-4.0) gm/dl Albumin/Globulin Ratio 1.4 (0.9-2) Imaging Data Radiologist's Impression: Cervical Spine CT 07/04/24 14:47 CT cervical spine wo con CLINICAL HISTORY: Fall, struck L side of head. COMPARISON: 07/15/2023 TECHNIQUE: Multiple axial CT images of the cervical spine were obtained without contrast. A dose lowering technique was utilized adhering to the principles of ALARA. FINDINGS: There are lower cervical spine degenerative changes. No fracture or subluxation. Stable small thyroid nodules. There are carotid bulb calcifications. IMPRESSION: No cervical spine fracture seen. ACT 112: Negative or not required by law. The above report was generated using voice recognition software. It may contain grammatical, syntax or spelling errors. Electronically signed by: Rudi Lee M.D. 07/04/2024 3:46 PM Hand X-Ray 07/04/24 14:47 XR hand LT min 3V routine CLINICAL HISTORY: Fall, L hand pain COMPARISON: None FINDINGS: There is an acute mildly comminuted mildly displaced mildly angulated fracture distally at the fifth metacarpal. No other fracture or dislocation seen. IMPRESSION: Acute fracture distally at the fifth metacarpal. ACT 112: Negative or not required by law. Electronically signed by: Rudi Lee M.D. 07/04/2024 3:[address] 07/04/24 14:47 CT head/brain wo con CLINICAL HISTORY: Fall, struck L side of head. TECHNIQUE: Multiple axial CT images of the head were obtained without contrast. A dose lowering technique was utilized adhering to the principles of ALARA. CT DOSE: 1014.82 mGy.cm COMPARISON: 07/15/2023 FINDINGS: No intracranial hemorrhage seen. No mass effect, midline shift, or hydrocephalus. No skull fracture seen. Visualized paranasal sinuses are clear. No mastoid effusion. Stable mild chronic small vessel ischemic changes. IMPRESSION: No acute findings. ACT 112: Negative or not required by law. The above report was generated using voice recognition software. It may contain grammatical, syntax or spelling errors. Electronically signed by: Rudi Lee M.D. 07/04/2024 3:44 PM Knee X-Ray 07/04/24 14:47 XR knee LT 3V CLINICAL HISTORY: Fall, knee pain COMPARISON: 07/15/2023 FINDINGS: There is mild osteoarthritis. No fracture or dislocation. IMPRESSION: No fracture seen. ACT 112: Negative or not required by law. Electronically signed by: Rudi Lee M.D. 07/04/2024 3:34 PM Knee X-Ray 07/04/24 14:47 XR knee RT 3V CLINICAL HISTORY: Fall, knee pain COMPARISON: None FINDINGS: There is mild osteoarthritis. No fracture or dislocation. There are atherosclerotic calcifications. IMPRESSION: No fracture seen. ACT 112: Negative or not required by law. Electronically signed by: Rudi Lee M.D. 07/04/2024 3:36 PM Shoulder X-Ray 07/04/24 14:47 XR shoulder LT min 2V routine CLINICAL HISTORY: Fall, L shoulder pain COMPARISON: 07/15/2023 FINDINGS: No fracture or dislocation. No significant degenerative change. IMPRESSION: No fracture seen. ACT 112: Negative or not required by law. Electronically signed by: Rudi Lee M.D. 07/04/2024 3:34 PM Chest X-Ray 07/04/24 14:48 XR chest 1V portable CLINICAL HISTORY: fall COMPARISON STUDY: 11/21/2022 FINDINGS: Stable CABG. Stable cardiomegaly without pulmonary vascular congestion. No effusion, consolidation, or pneumothorax. IMPRESSION: No acute findings. ACT 112: Negative or not required by law. Electronically signed by: Rudi Lee M.D. 07/04/2024 3:36 PM MDM Narrative Patient was seen and evaluated as above in room D03b. Review was performed of triage nursing notes and vital signs. I did review pertinent previous visits and patient history. After obtaining a thorough history and physical examination the above work up was performed. Patient presents to us today for evaluation of injury status post fall. Options of care were discussed with the patient. CT imaging head and C-spine obtained as well as x-rays of the left shoulder, left hand, bilateral knees. Chest x-ray also added. CT imaging at this time overall negative for acute process. There is an acute distal left fifth metacarpal fracture. Chest x-ray negative for acute process. Bilateral knees negative for acute process. I did obtain labs and there is no leukocytosis or concerning anemia. No emergent metabolic disturbance. IV Ancef ordered for suspicion of open fracture to the distal left fifth metacarpal. The integument defect is directly at the site of the fracture. Verbal consent was obtained and I did cleanse the wound with sterile saline dilute iodine and and iodine plus sterile saline soaked 4 x 4 with gauze was applied to the wound. I did ask ED ammunition storage superintendent to page orthopedics. Tetanus vaccine also updated. Dr. Pinto (orthopedics) did come to bedside. I did add on an EKG preoperatively. I also spoke with Dr. Rich, anesthesiologist at 1922pm. EKG per my interpretation performed at 1917 reveals what is likely a sinus rhythm with PVC however poor baseline artifact is noted. I did obtain a repeat EKG dated 1942 which revealed sinus rhythm at a rate of 73 bpm with frequent PVCs. QTc 515. QRS 114. Plan is a medical admission with orthopedic consult. Patient was taken directly to the operating room for further evaluation and management. I discussed case with the hospitalist service. Please refer to further documentation regarding her stay. GCS: 15 In the evaluation and treatment of this patient the following differential diagnoses were entertained: Fracture, dislocation, subluxation, contusion, sprain, strain, among others Impression & Plan Fall, Open fracture of left hand, Acute pain of left shoulder, Acute bilateral knee pain Discharge Plan Visit Data Chief Complaint: Fall Stated Complaint: BAD FALL ED Provider: Teetee Bolton ED Midlevel Provider: Harpal Rosenbaum Discharge Problem: Fall, Open fracture of left hand, Acute pain of left shoulder, Acute bilateral knee pain Patient Disposition: Admitted As Inpatient Condition: Good Discharge Instructions Interventions: ED Discharge Assessment Last Done: 07/04/24 19:53 Forms Stand Alone Forms: My [facility] [place] [employer] Prescriptions Prescriptions: No Action fluticasone furoate-vilanterol [Breo Ellipta] 100-25 mcg/dose blister with device 1 inh inhalation DAILY ibuprofen 600 mg tablet 600 mg PO Q8H PRN (Reason: Pain) Rx Instructions: 3 tabs qam and 3 tabs qhs baclofen 10 mg tablet 10 mg PO TID PRN (Reason: muscle spasm) Qty: 30 0RF lisinopril 5 mg tablet 5 mg PO QAM Qty: 90 3RF albuterol sulfate 90 mcg/actuation HFA aerosol inhaler 1 inh inhalation QID PRN (Reason: shortness of breath or wheezing) Qty: 8.5 5RF atorvastatin 80 mg tablet 80 mg PO HS Qty: 90 3RF metoprolol succinate 25 mg tablet extended release 24 hr 25 mg PO QAM Qty: 90 3RF Rx Instructions: Asked about metoprolol being on patient's allergy list. He said she can take medication fine. oxybutynin chloride 15 mg tablet extended release 24hr 15 mg PO QAM Qty: 90 3RF topiramate 25 mg tablet 25 mg PO BID Qty: 180 3RF calcium carbonate [Calcium 600] 600 mg calcium (1,500 mg) tablet 600 mg PO DAILY (DME) nebulizer accessories Kit See Rx Instructions .Route Qty: 1 0RF Rx Instructions: As directed (DME) nebulizer and compressor Device See Rx Instructions .ROUTE .Compass LabsPPLY Qty: 1 0RF Rx Instructions: As directed ipratropium-albuterol 0.5 mg-3 mg(2.5 mg base)/3 mL solution for nebulization 3 ml inhalation Q4H PRN (Reason: wheezing) Qty: 180 1RF pantoprazole [Protonix] 40 mg tablet,delayed release (DR/EC) 40 mg PO QAM Qty: 90 3RF aspirin 81 mg tablet,delayed release (DR/EC) 81 mg PO HS multivitamin Tablet 1 tab PO QPM cyanocobalamin (vitamin B-12) [Vitamin B-12] 1,000 mcg Tablet 1,000 mcg PO QPM cholecalciferol (vitamin D3) 50 mcg (2,000 unit) capsule 50 mcg PO QPM hydrochlorothiazide 12.5 mg tablet 12.5 mg PO QAM PRN (Reason: swelling) Referrals Referrals: Mary Carmen CRNP [Primary Care Provider] -
--- NOTE | 2024-07-04 15:35 | XRay Report ---
XR knee LT 3V CLINICAL HISTORY: Fall, knee pain COMPARISON: 07/15/2023 FINDINGS: There is mild osteoarthritis. No fracture or dislocation. IMPRESSION: No fracture seen. ACT 112: Negative or not required by law. Electronically signed by: Rudi Lee M.D. 07/04/2024 3:34 PM
--- NOTE | 2024-07-04 15:36 | XRay Report ---
XR shoulder LT min 2V routine CLINICAL HISTORY: Fall, L shoulder pain COMPARISON: 07/15/2023 FINDINGS: No fracture or dislocation. No significant degenerative change. IMPRESSION: No fracture seen. ACT 112: Negative or not required by law. Electronically signed by: Rudi Lee M.D. 07/04/2024 3:34 PM
--- NOTE | 2024-07-04 15:37 | XRay Report ---
XR knee RT 3V CLINICAL HISTORY: Fall, knee pain COMPARISON: None FINDINGS: There is mild osteoarthritis. No fracture or dislocation. There are atherosclerotic calcif ications. IMPRESSION: No fracture seen. ACT 112: Negative or not required by law. Electronically signed by: Rudi Lee M.D. 07/04/2024 3:36 PM
--- NOTE | 2024-07-04 15:37 | XRay Report ---
XR hand LT min 3V routine CLINICAL HISTORY: Fall, L hand pain COMPARISON: None FINDINGS: There is an acute mildly comminuted mildly displaced mildly angulated fracture distally at the fifth metacarpal. No other fracture or dislocation seen. IMPRESSION: Acute fracture distally at the fifth metacarpal. ACT 112: Negative or not required by law. Electronically signed by: Rudi Lee M.D. 07/04/2024 3:35 PM
--- NOTE | 2024-07-04 15:38 | XRay Report ---
XR chest 1V portable CLINICAL HISTORY: fall COMPARISON STUDY: 11/21/2022 FINDINGS: Stable CABG. Stable cardiomegaly without pulmonary vascular congestion. No effusion, consol idation, or pneumothorax. IMPRESSION: No acute findings. ACT 112: Negative or not required by law. Electronically signed by: Rudi Lee M.D. 07/04/2024 3:36 PM
--- NOTE | 2024-07-04 15:45 | CT Scan Report ---
CT head/brain wo con CLINICAL HISTORY: Fall, struck L side of head. TECHNIQUE: Multiple axial CT images of the head were obtained without contrast. A dose lowering tech nique was utilized adhering to the principles of ALARA. CT DOSE: 1014.82 mGy.cm COMPARISON: 07/15/2023 FINDINGS: No intracranial hemorrhage seen. No mass effect, midline shift, or hydrocephalus. No skull fracture seen. Visualized paranasal sinuses are clear. No mastoid effusion. Stable mild chronic small vessel ischemic changes. IMPRESSION: No acute findings. ACT 112: Negative or not required by law. The above report was generated using voice recognition software. It may contain grammatical, syntax o r spelling errors. Electronically signed by: Rudi Lee M.D. 07/04/2024 3:44 PM
--- NOTE | 2024-07-04 15:48 | CT Scan Report ---
CT cervical spine wo con CLINICAL HISTORY: Fall, struck L side of head. COMPARISON: 07/15/2023 TECHNIQUE: Multiple axial CT images of the cervical spine were obtained without contrast. A dose low ering technique was utilized adhering to the principles of ALARA. FINDINGS: There are lower cervical spine degenerative changes. No fracture or subluxation. Stable sma ll thyroid nodules. There are carotid bulb calcifications. IMPRESSION: No cervical spine fracture seen. ACT 112: Negative or not required by law. The above report was generated using voice recognition software. It may contain grammatical, syntax o r spelling errors. Electronically signed by: Rudi Lee M.D. 07/04/2024 3:46 PM
[2024-07-04] MEDS: DIPHTHER/TETAN/PERTUS Vaccine (Tdap, Adol/Adult) 0.5mL IM ONE (16:10)
[2024-07-04] MEDS: ceFAZolin 2000MG 2,000 MG/15 ML SYR IV STA (16:11)
[2024-07-04 16:29] LABS: Basophils # (auto) 0.06 K/uL (0.00-0.20); Basophils % (auto) 0.8 %; Eosinophils # (auto) 0.18 K/uL (0.00-0.50); Eosinophils % (auto) 2.5 %; Hemoglobin 12.9 g/dl (12.0-16.0); Immature Granulocytes # (auto) 0.03 K/uL (0.01-0.20); Immature Granulocytes % (auto) 0.4 %; Lymphocytes # (auto) 2.17 K/uL (1.20-3.40); Lymphocytes % (auto) 30.1 %; Mean Corpuscular Hemoglobin 31.6 pg (25.0-34.0); Mean Corpuscular Hgb Conc 33.9 g/dL (32.0-36.0); Mean Corpuscular Volume 93.1 fL (80.0-100.0); Mean Platelet Volume 11.6 fL (9.4-12.4); Monocytes # (auto) 0.72 K/uL (0.11-0.59); Neutrophils # (auto) 4.05 K/uL (1.40-6.50); Neutrophils % (auto) 56.2 %; Platelet Count 204 K/uL (130-400); RDW Coefficient of Variation 13.2 % (11.5-14.5); RDW Standard Deviation 44.7 fL (36.4-46.3); Red Blood Count 4.08 M/uL (4.20-5.40); White Blood Count 7.21 K/ul (4.8-10.8)
[2024-07-04 16:52] LABS: Albumin Level 4.1 gm/dl (3.4-5.0); Bilirubin,Total 0.9 mg/dl (0.2-1.0); Calcium 9.9 mg/dl (8.6-10.3); Potassium 3.7 mmol/L (3.5-5.1)
[2024-07-04 16:58] LABS: Albumin Globulin Ratio 1.4 (0.9-2); Creatinine Clr Calc Pharmacy 67.3 ml/min; Globulin 2.9 gm/dl (2.5-4.0)
--- NOTE | 2024-07-04 17:24 | Emergency Department Note ---
ED Visit Note I was consulted by Harpal Rosenbaum PA-C. I personally made/approved the management plan and take responsibility for the patient management. I performed a substantive portion of the visit. This includes the aspects of laboratory review, x-ray and CT imaging review. It appears the patient has an open fracture of the hand. IV access was obtained and antibiotics were administered. Tetanus status was updated. Orthopedics, Dr. Pinto was consulted. Please refer to Harpal Rosenbaum PA-C's notes for further details of the history, physical and visit. .
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
[2024-07-04] MEDS ORDERED: LIDOCAINE 2% 2 ML VIAL/AMP(20MG/ML) INFIL ONE (19:55)
[2024-07-04] MEDS ORDERED: PROPOFOL IV EMULSION 10 MG/ML 20 ML VIAL IV ONE (19:55)
[2024-07-04] MEDS ORDERED: fentaNYL citrate PF 100 MCG/2 ML VIAL ONE (20:03)
[2024-07-04] MEDS ORDERED: ROCURONIUM BROMIDE 10 MG/ML 5 ML VIAL IV ONE (20:03)
--- NOTE | 2024-07-04 20:14 | History & Physical Report ---
Date of Service July 04, 2024 Assessment & Plan (1) Open fracture of left hand: (2) Fall: Plan 74-year-old female PMHx HTN, dyslipidemia, depression with anxiety, essential tremors, cerebral amyloid angiopathy, chronic cerebral ischemia, OP, vascular dementia, OAB, and vitamin D deficiency who presents s/p GLF and L hand pain from the day of arrival. ED evaluation cytosis, stable H&H 12.9/38, CMP chloride 109, glucose 112; Cervical spine CT without acute findings; hand x-ray (L) with acute fracture distally fifth metacarpal; head CT without acute findings; knee XR L without acute fracture; knee XR R without acute fracture; shoulder XR without acute findings; CXR without acute findings; EKG (1920) undetermined rhythm with incomplete RBBB and nonspecific ST/T wave abnormality at 82 bpm, repeat at 1941 sinus rhythm with frequent PVCs and incomplete RBBB as well as ST/T abnormalities at 73 bpm.; Provided with tetanus vaccine and cefazolin 2 g IV x 2 in ED. #Fall/5th metacarpal fracture Pt presenting s/p GLF, landing on knees and L hand. Patient without adverse reactions to anesthesia, no know bleeding disorders, cardiac history significant for cardiac arrest/UT (10/19/2020) and prior open heart surgery at [id number]. From a cardiac standpoint, patient is stable. - CBC H/H 12.9/38; CMP grossly WNL - CBC am - CXR, Knee XR (R and L), and shoulder XR without acute findings - Cervical spine CT without acute findings - Hand XR (L) with acute fracture distally 5th metacarpal - EKG sinus with PVCs - Continue IVF once out of surgery - (echo 2020, EF 50-55%) LR @ 80 mL/hr x 500 mL - Cefazolin 4g IV given in ED - continue at discretion of ortho - Pain management per ortho - Ortho consulted - plans for ORIF; patient taken to surgery night of arrival - appreciate assistance and recs #/HTN- Mild , diagnosed on stress echo 2013; follows with cardiology; Lisinopril, HCTZ- From a cardiac standpoint, has been stable - continue meds #Cerebral amyloid angiopathy/Chronic headaches/Tremor/Dementia/Gait Disturbances - Cerebral amyloid angiopathy dx 2015, follows with neurology prn; Topiramate- continue #OAB- Urology; Oxybutynin and wears Depends -continue #HLD- Atorvastatin- continue #COPD- Dx 2015; Combivent inhaler, Breo; stable - continue #GERD- Pantoprazole- continue Dispo: Admit, med/sx VTE Prophylaxis: SCDs This document was dictated utilizing [email or web address]. Please excuse any grammatical errors that may be secondary to use of this software. Admission and Anticipated Discharge Date Admission Date: 07/03/2024 History of Present Illness Chief Complaint: Fall Primary Care Provider: BARRY Torres 74-year-old female PMHx HTN, dyslipidemia, depression with anxiety, essential tremors, cerebral amyloid angiopathy, chronic cerebral ischemia, OP, vascular dementia, OAB, and vitamin D deficiency who presents s/p GLF and L hand pain from the day of arrival. Patient states that she was walking outside to her mailbox with her umbrella when a strong ly of win came and started to pull her umbrella causing her to lose balance. She states that she fell onto the sidewalk then, landing on her L side and hand. She states that she did land on her knees initially then her L hand caught her fall. When she looked down, she noticed that a bone in her hand was out of her skin. Patient states that she did not have any symptoms prior to the fall to include chest pain, SOB, dizziness, or LOC. Her only complaint at this time is some discomfort in her hand, but no other concerns. Denying chest pain, SOB, palpitations, abdominal pain, N/V/D/C, LUTs, URI symptoms, or F/C. ED evaluation cytosis, stable H&H 12.9/38, CMP chloride 109, glucose 112; Cervical spine CT without acute findings; hand x-ray (L) with acute fracture distal fifth metacarpal; head CT without acute findings; knee XR L without acute fracture; knee XR R without acute fracture; shoulder XR without acute findings; CXR without acute findings; EKG (192) undetermined rhythm with incomplete RBBB and nonspecific ST/T wave abnormality at 82 bpm, repeat at 1941 sinus rhythm with frequent PVCs and incomplete RBBB as well as ST/T abnormalities at 73 bpm.; Provided with tetanus vaccine and cefazolin 2 g IV x [address] see Dr[address] Bhatt's attestation for adjustments/additions to treatment plan. Allergies Allergy/AdvReac Type Severity Reaction Status Date / Time aspirin Allergy Mild makes her Verified 02/10/24 13:24 sick metoprolol Allergy Mild makes her Verified 02/10/24 13:24 sick Sulfa (Sulfonamide Allergy Unknown Unknown Verified 02/10/24 13:24 Antibiotics) mayonnaise AdvReac Mild "makes me Verified 02/10/24 13:24 sick and throws up" Home Medications Medication Instructions Recorded Confirmed Type cholecalciferol (vitamin D3) 50 50 mcg PO QPM 08/07/20 07/04/24 History mcg (2,000 unit) capsule cyanocobalamin (vitamin B-12) 1,000 mcg PO QPM 08/07/20 07/04/24 History 1,000 mcg tablet (Vitamin B-12) multivitamin 1 tab PO QPM 08/07/20 07/04/24 History aspirin 81 mg tablet,delayed 81 mg PO HS 08/11/21 07/04/24 History release fluticasone furoate 100 1 inh inhalation DAILY 10/20/22 07/04/24 History mcg-vilanterol 25 mcg/dose inhalation powder (Breo Ellipta) ipratropium 0.5 mg-albuterol 3 mg 3 ml inhalation Q4H PRN wheezing 12/03/22 07/04/24 Rx (2.5 mg base)/3 mL nebulization #180 mL soln nebulizer accessories #1 ea 12/03/22 02/10/24 Rx nebulizer and compressor #1 ea 12/03/22 02/10/24 Rx baclofen 10 mg tablet 10 mg PO TID PRN muscle spasm #30 01/12/23 07/04/24 Rx tabs calcium carbonate (Calcium 600) 600 mg PO DAILY 02/03/23 07/04/24 History ibuprofen 600 mg tablet 600 mg PO Q8H PRN Pain 06/07/23 07/04/24 History lisinopril 5 mg tablet 5 mg PO QAM #90 tabs 10/18/23 07/04/24 Rx albuterol sulfate 90 mcg/actuation 1 inh inhalation QID PRN shortness 11/23/23 07/04/24 Rx aerosol inhaler of breath or wheezing #8.5 grams atorvastatin 80 mg tablet 80 mg PO HS #90 tabs 12/02/23 07/04/24 Rx metoprolol succinate 25 mg 25 mg PO QAM #90 tabs 12/02/23 07/04/24 Rx tablet,extended release 24 hr oxybutynin chloride 15 mg 15 mg PO QAM #90 tabs 01/11/24 07/04/24 Rx tablet,extended release 24 hr pantoprazole 40 mg tablet,delayed 40 mg PO QAM #90 tabs 02/10/24 07/04/24 Rx release (Protonix) topiramate 25 mg tablet 25 mg PO BID #180 tabs 05/01/24 07/04/24 Rx hydrochlorothiazide 12.5 mg tablet 12.5 mg PO QAM PRN swelling 07/04/24 07/04/24 History Past Med/Surg History Problem List Acute bilateral knee pain (Acute) Acute pain of left shoulder (Acute) Open fracture of left hand (Acute) Fall (Acute) Open metacarpal fracture Dependent edema Cough URI (upper respiratory infection) Generalized weakness (Acute) Confusion (Acute) Recurrent low back pain Pelvic pain Microscopic hematuria Overactive bladder Internal hemorrhoid Vitamin D deficiency Vascular dementia without behavioral disturbance Urinary incontinence Osteoporosis Osteoarthritis of knee Impaired fasting glucose Gait disturbance Chronic diarrhea of unknown origin Chronic cerebral ischemia Cerebral amyloid angiopathy Aortic stenosis, mild Essential tremor Chronic headaches Thoracic facet syndrome Sacroiliitis Encounter for pre-operative examination GERD (gastroesophageal reflux disease) Left ventricular aneurysm Abnormal CT scan, esophagus Dysphagia 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 Horn's note "The mechanism of her cardiac arrest appeared to be hypoxia. She was noted to have evidence of cyanosis prior to losing consciousness. This occurred while eating. There were no indications of malignant arrhythmia or need for defibrillation. No cardioversion or defibrillation was performed during her resuscitation." Depression with anxiety Hypertension (Chronic) Lumbar facet joint syndrome Stumbling gait BLE weakness--pt denies need for any assistive devices when ambulating Medical History History of esophageal dilatation Esophageal abnormality tortuous esophagus Osteoarthritis Hiatal hernia Transient ischemic attack (TIA) >5 years ago, [facility] neuro Forgetfulness Arrhythmia "skips a beat", old, nothing new Urinary incontinence History of urinary urgency Asymptomatic menopausal state Orthostatic hypotension Surgical History History of cardiac cath (~10/21/20) d/t NSTEMI @ [facility], no stents placed--follows with Dr. Horn History of cataract surgery bilateral History of esophagogastroduodenoscopy (EGD) 08/08/20 [place] S/P epidural steroid injection H/O section X 2 History of heart surgery at 13 years old, VSD repair Family History Mother Myocardial infarction Father Myocardial infarction Other No family history of adverse response to anesthesia Denies family history of Ovarian cancer Prostate cancer Breast cancer Colorectal cancer Social History Smoking Status: Never smoker Second Hand Exposure: No; Do You Dip or Chew Tobacco: No; Tobacco Cessation Education Requested by Patient: No Hx Alcohol Use: No Hx Substance Use: No Preferred Language: Malay Communication Ability: Effective Visual Impairment: Limited Hearing Ability: Normal Arson Investigator Required: No Beliefs That Will Affect Care: None marital status: Current Living Situation: Spouse current occupational status: retired 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 Other Information That Helps Us Care for You: No Feels Safe at Home: Yes Safety Concerns: Feels Safe At This Time Childhood Exposure to Second-Hand Smoke: Yes Diet: regular caffeine: Yes Dental Care, Regularly: No Physical Activity Frequency: 3-4 Times per Week Seatbelt Use: always Sunscreen Use: No Assistive Devices: Cane, Denture - Upper and Walker Review of Systems Review of Systems: All systems reviewed & are unremarkable except as noted in Subjective Physical Exam Physical Exam: General: No acute distress Skin: Warm and dry Head: Normocephalic, atraumatic Eyes: PERRL, conjunctivae clear, sclera non-icteric ENT: External ear and ear canal without swelling; nose atraumatic; good dentition, tongue normal appearance, pharynx normal Neck: Supple, no LAD Cardio: RRR, no M/G/R, S1 and S2 normal; central vertical scar on chest Resp: No respiratory distress, Lungs CTA in all lobes bilaterally, no wheezes, rales, or rhonchi Abdomen: Soft, symmetric, nontender; No masses or hepatosplenomegaly; Bowel sounds normoactive MSK: Left hand wrapped; Pulses palpable and equal; no edema. Neuro: Awake, alert; Sensation intact bilaterally; CN grossly intact Psych: Appropriate mood and affect; good judgement and insight. 3 family members present in room at time of visit. Results & Data Results & Data Vital Signs (Past 12 Hours) Vital Signs Temp Pulse Resp BP Pulse Ox O2 Del Method 07/04/24 19:53 91 H 18 122/100 96 Room Air 07/04/24 19:28 91 H 07/04/24 14:25 36.7 C 63 18 142/78 H 97 Room Air Laboratory Results 07/04/24 16:14 WBC 7.21 RBC 4.08 L Hgb 12.9 Hct 38.0 MCV 93.1 MCH 31.6 MCHC 33.9 RDW Std Deviation 44.7 RDW Coeff of [place] 13.2 Plt Count 204 MPV 11.6 Immature Gran % (Auto) 0.4 Neut % (Auto) 56.2 Lymph % (Auto) 30.1 [place] % (Auto) 10.0 Eos % (Auto) 2.5 Baso % (Auto) 0.8 Neut # (Auto) 4.05 Lymph # (Auto) 2.17 [place] # (Auto) 0.72 H Eos # (Auto) 0.18 Baso # (Auto) 0.06 Immature Gran # (Auto) 0.03 Sodium 145 Potassium 3.7 Chloride 109 H Carbon Dioxide 28 Anion Gap 8 BUN 7 Creatinine 0.70 Est Cr Clr Drug Dosing 67.3 eGFR 89.58 BUN/Creatinine Ratio 10.0 Glucose 112 H Calcium 9.9 Total Bilirubin 0.9 AST 20 ALT 12 Alkaline Phosphatase 60 Total Protein 7.0 Albumin 4.1 Globulin 2.9 Albumin/Globulin Ratio 1.4 Diagnostic Findings Cervical Spine CT 07/04/24 14:47 CT cervical spine wo con CLINICAL HISTORY: Fall, struck L side of head. COMPARISON: 07/15/2023 TECHNIQUE: Multiple axial CT images of the cervical spine were obtained without contrast. A dose lowering technique was utilized adhering to the principles of ALARA. FINDINGS: There are lower cervical spine degenerative changes. No fracture or subluxation. Stable small thyroid nodules. There are carotid bulb calcifications. IMPRESSION: No cervical spine fracture seen. ACT 112: Negative or not required by law. The above report was generated using voice recognition software. It may contain grammatical, syntax or spelling errors. Electronically signed by: Rudi Lee M.D. 07/04/2024 3:46 PM Hand X-Ray 07/04/24 14:47 XR hand LT min 3V routine CLINICAL HISTORY: Fall, L hand pain COMPARISON: None FINDINGS: There is an acute mildly comminuted mildly displaced mildly angulated fracture distally at the fifth metacarpal. No other fracture or dislocation seen. IMPRESSION: Acute fracture distally at the fifth metacarpal. ACT 112: Negative or not required by law. Electronically signed by: Rudi Lee M.D. 07/04/2024 3:[address] 07/04/24 14:47 CT head/brain wo con CLINICAL HISTORY: Fall, struck L side of head. TECHNIQUE: Multiple axial CT images of the head were obtained without contrast. A dose lowering technique was utilized adhering to the principles of ALARA. CT DOSE: 1014.82 mGy.cm COMPARISON: 07/15/2023 FINDINGS: No intracranial hemorrhage seen. No mass effect, midline shift, or hydrocephalus. No skull fracture seen. Visualized paranasal sinuses are clear. No mastoid effusion. Stable mild chronic small vessel ischemic changes. IMPRESSION: No acute findings. ACT 112: Negative or not required by law. The above report was generated using voice recognition software. It may contain grammatical, syntax or spelling errors. Electronically signed by: Rudi Lee M.D. 07/04/2024 3:44 PM Knee X-Ray 07/04/24 14:47 XR knee LT 3V CLINICAL HISTORY: Fall, knee pain COMPARISON: 07/15/2023 FINDINGS: There is mild osteoarthritis. No fracture or dislocation. IMPRESSION: No fracture seen. ACT 112: Negative or not required by law. Electronically signed by: Rudi Lee M.D. 07/04/2024 3:34 PM Knee X-Ray 07/04/24 14:47 XR knee RT 3V CLINICAL HISTORY: Fall, knee pain COMPARISON: None FINDINGS: There is mild osteoarthritis. No fracture or dislocation. There are atherosclerotic calcifications. IMPRESSION: No fracture seen. ACT 112: Negative or not required by law. Electronically signed by: Rudi Lee M.D. 07/04/2024 3:36 PM Shoulder X-Ray 07/04/24 14:47 XR shoulder LT min 2V routine CLINICAL HISTORY: Fall, L shoulder pain COMPARISON: 07/15/2023 FINDINGS: No fracture or dislocation. No significant degenerative change. IMPRESSION: No fracture seen. ACT 112: Negative or not required by law. Electronically signed by: uRdi Lee M.D. 07/04/2024 3:34 PM Chest X-Ray 07/04/24 14:48 XR chest 1V portable CLINICAL HISTORY: fall COMPARISON STUDY: 11/21/2022 FINDINGS: Stable CABG. Stable cardiomegaly without pulmonary vascular congestion. No effusion, consolidation, or pneumothorax. IMPRESSION: No acute findings. ACT 112: Negative or not required by law. Electronically signed by: Rudi Lee M.D. 07/04/2024 3:36 PM Medications Administered Cefazolin 2g IV x 2 Tetanus vaccine ECG Additional Comments: Initial EKG at 1921: Undetermined rhythm, incomplete RBBB, nonspecific ST-T wave abnormality 82 bpm, QRS 104, QT/QTc 510/595, PRT */16/22 Second EKG at 1941: Sinus rhythm with frequent PVCs, incomplete RBBB, ST-T wave abnormality 73 bpm, WA 172, QRS 114, QT/QTc 468/515, PRT 72/32/-1 Code Status & VTE Plan Code Status Full VTE Prophylaxis Plan VTE Prophylaxis will be ordered: Yes Supervising Physician Co-Signing Physician Notes Patient seen and examined, chart reviewed, case discussed with LAWANDA Olson and I agree with the assessment and plan as above. Patient s/p fall resulting in fal with open 5th metacarpal fracture s/p I &D. Patient seen in room 377-1. Complaining of pain. NO additional complaints. +S1/S2, regular, no m/r/g Lungs CTA Abd soft NT/ND Ext left hand dressed, clean/dry/intact Moving extremities Labs and images reviewed Assessment/Plan Pain management added with Tylenol, Oxycodone and Morphine PRN Remainder as above PG Care Time/CCT Total # of Minutes Spent Total Time Spent with Patient: Total time spent is greater than 50% in coordination of care (as documented) at patient's floor/unit and/or counseling patient: Coding Level of Care Code 25350 INT INP/OBS CARE MIN Diagnoses Open fracture of left hand S62.92XB Fall W19.XXXA
[2024-07-04] MEDS ORDERED: ePHEDrine sulfate 50 MG/ML AMP IV PRN (20:15)
[2024-07-04] MEDS ORDERED: ONDANSETRON INJ 2 MG/ML 2 ML VIAL IV PRN ×2 (20:15→23:55)
[2024-07-04] MEDS ORDERED: HYDROmorphone INJ 1 MG/ML SYRINGE IV PRN (20:15)
[2024-07-04] MEDS ORDERED: ATROPINE SULFATE 0.1 MG/ML 10ML SYR IV PRN (20:15)
--- NOTE | 2024-07-04 20:15 | Anesthesiology Consultation ---
Date of Service July 04, 2024 Assessment & Plan ASA ASA3 Proposed Anesthesia Anesthesia Type: General Risk / Benefits Reviewed With: PT / POA / Parent / Guardian, Accepts Plan and Informed Consent Obtained History Surgery Operation Date: 07/04/24 20:00 Proposed Procedures p I&D of the left hand, Open Reduction Internal Fixation Left 5th metatarsal - Sebastian La Pinto MD Height/Weight Height: 5 ft 4 in Weight: 73.9 kg Allergies Allergy/AdvReac Type Severity Reaction Status Date / Time aspirin Allergy Mild makes her Verified 02/10/24 13:24 sick metoprolol Allergy Mild makes her Verified 02/10/24 13:24 sick Sulfa (Sulfonamide Allergy Unknown Unknown Verified 02/10/24 13:24 Antibiotics) mayonnaise AdvReac Mild "makes me Verified 02/10/24 13:24 sick and throws up" Medications Home Medications Medication Instructions Recorded Confirmed Last Taken cholecalciferol (vitamin D3) 50 50 mcg PO QPM 08/07/20 07/04/24 08/11/21 mcg (2,000 unit) capsule cyanocobalamin (vitamin B-12) 1,000 mcg PO QPM 08/07/20 07/04/24 08/11/21 1,000 mcg tablet (Vitamin B-12) multivitamin 1 tab PO QPM 08/07/20 07/04/24 08/11/21 aspirin 81 mg tablet,delayed 81 mg PO HS 08/11/21 07/04/24 08/11/21 release fluticasone furoate 100 1 inh inhalation DAILY 10/20/22 07/04/24 Unknown mcg-vilanterol 25 mcg/dose inhalation powder (Breo Ellipta) ipratropium 0.5 mg-albuterol 3 mg 3 ml inhalation Q4H PRN wheezing 12/03/22 07/04/24 Unknown (2.5 mg base)/3 mL nebulization #180 mL soln nebulizer accessories #1 ea 12/03/22 02/10/24 Unknown nebulizer and compressor #1 ea 12/03/22 02/10/24 Unknown baclofen 10 mg tablet 10 mg PO TID PRN muscle spasm #30 01/12/23 07/04/24 Unknown tabs calcium carbonate (Calcium 600) 600 mg PO DAILY 02/03/23 07/04/24 Unknown ibuprofen 600 mg tablet 600 mg PO Q8H PRN Pain 06/07/23 07/04/24 Unknown lisinopril 5 mg tablet 5 mg PO QAM #90 tabs 10/18/23 07/04/24 Unknown albuterol sulfate 90 mcg/actuation 1 inh inhalation QID PRN shortness 11/23/23 07/04/24 Unknown aerosol inhaler of breath or wheezing #8.5 grams atorvastatin 80 mg tablet 80 mg PO HS #90 tabs 12/02/23 07/04/24 Unknown metoprolol succinate 25 mg 25 mg PO QAM #90 tabs 12/02/23 07/04/24 Unknown tablet,extended release 24 hr oxybutynin chloride 15 mg 15 mg PO QAM #90 tabs 01/11/24 07/04/24 Unknown tablet,extended release 24 hr pantoprazole 40 mg tablet,delayed 40 mg PO QAM #90 tabs 02/10/24 07/04/24 Unknown release (Protonix) topiramate 25 mg tablet 25 mg PO BID #180 tabs 05/01/24 07/04/24 Unknown hydrochlorothiazide 12.5 mg tablet 12.5 mg PO QAM PRN swelling 07/04/24 07/04/24 Unknown Past Medical History Medical History History of esophageal dilatation Esophageal abnormality tortuous esophagus Osteoarthritis Hiatal hernia Transient ischemic attack (TIA) >5 years ago, [facility] neuro Forgetfulness Arrhythmia "skips a beat", old, nothing new Urinary incontinence History of urinary urgency Asymptomatic menopausal state Orthostatic hypotension Exercise / Class Metabolic Activity II 4-5 Yardwork/Stairs/Walk up hill Past Family History Family History Mother Myocardial infarction Father Myocardial infarction Other No family history of adverse response to anesthesia Denies family history of Ovarian cancer Prostate cancer Breast cancer Colorectal cancer Past Surgical History Surgical History History of cardiac cath (~10/21/20) d/t NSTEMI @ [facility], no stents placed--follows with Dr. Horn History of cataract surgery bilateral History of esophagogastroduodenoscopy (EGD) 08/08/20 [place] S/P epidural steroid injection H/O section X 2 History of heart surgery at 13 years old, VSD repair Past Anesthesia History No Hx of Anesthesia Complications and No Family Hx of Anesthesia Complications History of PONV No Hx of PONV and No Hx of Motion Sickness Social History Smoking Status: Never smoker Do You Dip or Chew Tobacco: No Hx Alcohol Use: No Hx Substance Use: No substance use type: does not use Review of Systems denies fever/cough/ colds/ chest pain/ SOB/ BERTHA denies BERTHA Physical Exam Vital Signs Last Vital Signs Temp 36.7 C 07/04/24 14:25 Pulse 91 H 07/04/24 19:53 Resp 18 07/04/24 19:53 BP 122/100 07/04/24 19:53 Pulse Ox 96 07/04/24 19:53 O2 Del Method Room Air 07/04/24 19:53 ENMT Mouth: no TMJ abnormality and no dentition abnormality Thyromental Distance: > or= 3.5 Finger Breadths Mallampati Class: II Neck neck extension not limited Respiratory normal respiratory effort; no respiratory distress Auscultation: lungs clear to auscultation bilaterally Cardiovascular Rate/Rhythm: regular rate and regular rhythm Neurologic moves all extremities Psychiatric Orientation: alert and oriented x 3 Testing Laboratory Results 07/04/24 16:14 07/04/24 16:14
[2024-07-04] MEDS: ceFAZolin 2000MG 2,000 MG/15 ML SYR IV ONE (20:22)
[2024-07-04] MEDS: LIDOCAINE 1%/EPINEPHRINE 1:100,000 50 ML VIAL ONE (20:57)
[2024-07-04] MEDS: BUPIVACAINE 0.5 % 5 MG/1 ML MPF 30ML VIAL ONE (20:57)
[2024-07-04] MEDS ORDERED: ONDANSETRON INJ 2 MG/ML 2 ML VIAL ONE (22:05)
[2024-07-04] MEDS ORDERED: SUGAMMADEX SODIUM 200 MG/2 ML VIAL IV ONE (22:06)
--- NOTE | 2024-07-04 22:28 | Post Operative Brief Note ---
Immediate Post Op Note Date of Surgery July 04, 2024 Pre & Post Diagnosis Operation Date: 07/04/24 20:00 Pre-Op Diagnosis: Open left fifth metacarpal fracture Post-Op Diagnosis: Open comminuted left fifth metacarpal fracture I identified the patient and participated in the time-out.: Yes Procedure Operation Date: 07/04/24 20:00 Actual Procedures p Irrigation and Debridement of the left hand, Open Reduction Internal Fixation Left 5th metacarpal(Left) - Sebastian Pinto MD Surgeon Sebastian Pinto MD Gold Charmer Natalia Montes De Oca PA-C (No fellow avail) Estimated Blood Loss 15 Findings Consistent with Post-Op Diagnosis Fluids 700 cc Anesthesia Type General Complications none
--- NOTE | 2024-07-04 22:29 | Operative Report ---
Post Operative Report Pre & Post Diagnosis Operation Date: 07/04/24 20:00 Pre-Op Diagnosis: Open left fifth metacarpal fracture Post-Op Diagnosis: Open comminuted left fifth metacarpal fracture I identified the patient and participated in the time-out.: Yes Procedure Operation Date: 07/04/24 20:00 Actual Procedures p Irrigation and Debridement of the left hand, Open Reduction Internal Fixation Left 5th metacarpal(Left) - Sebastian Pinto MD Surgeon Sebastian Pinto MD Highway Design Engineer Natalia Montes De Oca PA-C (No fellow avail) Estimated Blood Loss 15 Findings See Below 1 cm laceration Dorsum left hand over 5th Metacarpal fracture. Open, Comminuted left 5th metacarpal neck fracture, displaced. Fluids 800 cc Specimens n/a Anesthesia Type General Complications none Indications The patient is a 74 year old female with an open, displaced left 5th metacarpal fracture, that I recommended I&D and surgical fixation. The patient understands the risks of surgery, which include but are not limited to: bleeding, infection, re-operation, damage to nerves and arteries, continued pain, progression of arthritis, mal-union, non-union, and stiffness. The patient understands all of these instructions and explanations, all of their questions have been satisfactorily addressed. The patient has elected to proceed with surgery and the informed consent was signed. Description of Procedure Natalia Montes De Oca PA-C was present for the case and assisted with positioning, prepping & draping, retraction, closure, and splinting. IMPLANTS: 1) 1.5 mm VA 6 Hole shaft, Condylar plate (Synthes). 2) 1.5 mm Cortical screws ( 6 mm) 3) 1.5 mm Variable angle Locking screw ( 6 mm x 3, 9 mm, 11 mm) PROCEDURE: The patient was taken to the Operating Room and placed in the supine position on the operating table. After general anesthetic was administered a multidisciplinary time-out was performed identifying my initials on the left upper extremity as the correct and operative limb. Prior to the incision being made, 500 milligrams of intravenous Ancef were given as they had recently been given 2g Ancef in the ED but over an hour prior to the OR. The left upper extremity was prepped and draped in the usual orthopaedic sterile fashion. The planned incision utilizing the open wound and extended in line with the fifth metacarpal was marked and was then injected with 5 cc of a 50:50 mix of 1% Lidocaine epi and 0.5% Bupivacaine plain. An ulnar nerve block was also performed in the standard fashion using another 5 cc of above-noted mixture. Using gravity to exsanguinate the limb and the tourniquet was inflated to 250 mmHg. The planned incision was carried down to the extensor mechanism. The proximal fragment was exposed first followed by the distal Fragments. The extensor tendon was protected throughout. The fragments were debrided of hematoma with dental pick, rongeur, irrigation and suction. Care was taken not to devitalize the fragments. There was significant comminution. Fluoroscopy was brought in to ensure near anatomic reduction. A 1.5 mm VA Shaft/Condylar plate was selected and fit well. Once the plate was placed and the fracture reduced and held in place with a 2 K wire distally the oblong hole was filled with a cortical screw. This was confirmed by Fluoro. A cortical screw was placed distally bring the plate down to the bone distally, it was later replaced with a locking screw. Two of the other distal holes were also filled with locking screw. Three locking screws were placed in the proximal fragment. Using a 2-0 antibiotic impregnated Vicryl suture 2 cerclage the comminuted distal fragment in the standard fashion. Fluoroscopy was used to show a near anatomic reduction with good position of the fracture and the hardware. The skin edge of the open wound was sharply debrided with a scalpel. The wound was copiously irrigated. There was no rotational deformity. The periosteum was closed over the plate with 2-0 Antibiotic impregnated Vicryl. The skin was closed with 4-0 Nylon using horizontal mattress stitch. The wound was dressed with Xeroform gauze, sterile gauze, sterile Webril, and a Ulnar gutter splint was placed with rebecca taping the 4th -5th digits. The sponge and needle counts were correct. He was taken to the recovery room in s table condition. Post-op Instructions: Patient will be admitted for 48 hours Anc due to open fracture. No lifting more than coffee cup left hand. I attest to the content of the Intraoperative Record and any orders documented therein. Any exceptions are noted below.
--- NOTE | 2024-07-04 22:44 | Operative Report ---
Post Operative Report Pre & Post Diagnosis Operation Date: 07/04/24 20:00 Pre-Op Diagnosis: Open left fifth metacarpal fracture Post-Op Diagnosis: Open comminuted left fifth metacarpal fracture I identified the patient and participated in the time-out.: Yes Procedure Operation Date: 07/04/24 20:00 Actual Procedures p Irrigation and Debridement of the left hand, Open Reduction Internal Fixation Left 5th metacarpal(Left) - Sebastian La Pinto MD Surgeon D Blair SANCHEZ Medical Doctor Md/Medical Director C LAWANDA Montes De Oca (No fellow avail) Estimated Blood Loss 15 Findings Consistent with Post-Op Diagnosis see operative report Specimens none Drains none Complications none Disposition Accompanied Patient To Recovery: Yes Indications This 74 year old female presented through the ED with complaints of left hand pain after falling earlier today. Evaluation there revealed an open fracture of her fifth metacarpal. She elected to proceed with surgical intervention after being educated about potential risks and outcomes. Preoperative imaging was obtained. Description of Procedure The patient was taken to the operating room where she was given general anesthesia. She was prepped and draped in the usual sterile fashion. Please see Dr. Pinto's operative report for specifics of the procedure. I was present for the entire case from initial patient positioning through final wound closure. Assistance was provided in tissue retraction, hemostasis, fracture reduction, hardware placement, final wound closure, and postoperative splinting. The patient was taken to the ICU for recovery in satisfactory condition. I attest to the content of the Intraoperative Record and any orders documented therein. Any exceptions are noted below.
[2024-07-04] MEDS: fentaNYL citrate PF 100 MCG/2 ML VIAL IV PRN (23:05)
--- NOTE | 2024-07-04 23:09 | Anesthesiology Progress Note ---
Date of Service July 04, 2024 Anesthesia Post Procedure Vital Signs Vital Signs: Temp Pulse Pulse Resp BP BP Pulse Ox 07/04/24 22:55 72 17 138/75 96 07/04/24 22:45 72 20 123/67 97 07/04/24 22:38 36.2 C L 84 16 111/75 99 07/04/24 19:53 91 H 18 122/100 96 07/04/24 19:28 91 H 07/04/24 14:25 36.7 C 63 18 142/78 H 97 O2 Del Method O2 Flow Rate 07/04/24 22:55 Room Air 07/04/24 22:45 Oxymask 2 07/04/24 22:38 Oxymask 4 07/04/24 19:53 Room Air 07/04/24 19:28 07/04/24 14:25 Room Air Pain Intensity Left Hand: Pain Intensity: 4 Transfer of Care Handoff Completed per policy Notes Mental Status: alert / awake / arousable and participated in evaluation Patient Amnestic to Procedure: Yes Nausea / Vomiting: adequately controlled Pain: adequately controlled Airway Patency, RR, SpO2: stable & adequate BP & HR: stable & adequate Hydration State: stable & adequate Anesthetic Complications: no major complications apparent and Pt Satisfied with anesthetic care
[2024-07-04] MEDS ORDERED: BACLOFEN 10 MG TAB PO PRN (23:55)
[2024-07-04] MEDS ORDERED: MELATONIN 3 MG TAB PO PRN (23:55)
[2024-07-04] MEDS ORDERED: ALBUTEROL HFA 8 GM INHALER INH PRN (23:55)
[2024-07-04] MEDS ORDERED: POLYETHYLENE (MIRALAX) 17 GM PACK PO PRN (23:55)
[2024-07-04] MEDS ORDERED: hydroCHLOROthiazide 25 MG TAB PO PRN (23:55)
[2024-07-04] MEDS ORDERED: ALBUT/IPRATROP 3MG/0.5MG NEB 3 ML VIAL INH PRN (23:55)
[2024-07-05] MEDS: ATORVASTATIN 40 MG TAB PO SCH (01:03)
[2024-07-05] MEDS: TOPIRAMATE 25 MG TAB PO SCH (01:04)
[2024-07-05] MEDS: LACTATED RINGER'S 1,000 ML IV SCH ×2 (01:57→20:39)
[2024-07-05] MEDS: ceFAZolin 2000MG 2,000 MG/15 ML SYR IV SCH (04:53)
[2024-07-05] MEDS ORDERED: ACETAMINOPHEN 325 MG TAB PO PRN (05:03)
[2024-07-05] MEDS: oxyCODONE HCL IR 5 MG TAB (IMMEDIATE RELEASE) PO PRN (05:24)
--- NOTE | 2024-07-05 07:53 | Fluoroscopy Report ---
FL hand LT 2V CLINICAL HISTORY: LT HAND ORIF COMPARISON STUDY: None pertinent FLUOROSCOPY TIME: 10.7 seconds FLUOROSCOPY IMAGES: 3 EXPOSURE DOSE: 0.23 mGy FINDINGS: Fluoroscopic guidance provided for screw-plate fixation of the fifth metacarpal IMPRESSION: Dorsally applied screw plate fixation transfixing a fifth metacarpal fracture. Refer to t he operative report for analysis real-time fluoroscopic observation ACT 112: Negative or not required by law. Electronically signed by: Carmella Mills M.D. 07/05/2024 7:51 AM
[2024-07-05 08:18] LABS: Hemoglobin 11.1 g/dl (12.0-16.0); Mean Corpuscular Hemoglobin 31.4 pg (25.0-34.0); Mean Corpuscular Hgb Conc 33.6 g/dL (32.0-36.0); Mean Corpuscular Volume 93.2 fL (80.0-100.0); Mean Platelet Volume 11.9 fL (9.4-12.4); Platelet Count 166 K/uL (130-400); RDW Coefficient of Variation 13.2 % (11.5-14.5); RDW Standard Deviation 45.4 fL (36.4-46.3); Red Blood Count 3.54 M/uL (4.20-5.40); White Blood Count 9.73 K/ul (4.8-10.8)
[2024-07-05 08:50] LABS: Calcium 8.8 mg/dl (8.6-10.3); Potassium 3.7 mmol/L (3.5-5.1)
[2024-07-05 08:56] LABS: Creatinine Clr Calc Pharmacy 67.3 ml/min
[2024-07-05] MEDS: PANTOprazole 40 MG TAB PO SCH (09:06)
[2024-07-05] MEDS: FLUTICASONE/VILANTEROL 100/25MCG 14 PUFFS/INHALER INH SCH (09:07)
[2024-07-05] MEDS: METOPROLOL SUCC 25MG EXT REL TAB PO SCH (09:07)
[2024-07-05] MEDS: lisinopril 5 MG TAB PO SCH (09:07)
[2024-07-05] MEDS: OXYBUTYNIN CHLORIDE XL 5 MG TABCR PO SCH (09:07)
--- NOTE | 2024-07-05 10:18 | Electrocardiogram Report ---
Test Reason : Blood Pressure : */* mmHG Vent. Rate : 73 BPM Atrial Rate : 73 BPM P-R Int : 172 ms QRS Dur : 114 ms QT Int : 468 ms P-R-T Axes : 72 32 -1 degrees QTcB Int : 515 ms Sinus rhythm with frequent Premature ventricular complexes Incomplete right bundle branch block Abnormal ECG Confirmed by Stiven Horn ([id number]) on 07/05/2024 10:18:07 AM Referred By: REFERRED SELF Confirmed By: Stiven Horn
--- NOTE | 2024-07-05 10:21 | Electrocardiogram Report ---
Test Reason : Blood Pressure : */* mmHG Vent. Rate : 82 BPM Atrial Rate : 59 BPM P-R Int : * ms QRS Dur : 104 ms QT Int : 510 ms P-R-T Axes : * 16 22 degrees QTcB Int : 595 ms Sinus rhythm with occasional and consecutive PVCs Incomplete right bundle branch block Nonspecific ST and T wave abnormality Abnormal ECG Confirmed by Stiven Horn ([id number]) on 07/05/2024 10:21:16 AM Referred By: REFERRED SELF Confirmed By: Stiven Horn
--- NOTE | 2024-07-05 11:14 | Orthopedic Progress Note ---
Date of Service July 05, 2024 Assessment & Plan (1) Open fracture of left hand: Plan: POD 1 - s/p Irrigation and Debridement, Open Reduction Internal Fixation Left 5th metacarpal Keep splint and dressings on today. Ice and elevate left hand to reduce swelling. Pain medication as needed. Nonweightbearing left hand. May do gentle range of motion of her fingers as the splint allows. Will plan for dressing change tomorrow to reassess wound. Continue IV antibiotics as per primary service. Will need 48 hours of IV antibiotics due to open fracture. Patient understands and agrees with the plan. If everything looks okay tomorrow may be able to potentially discharge to home. Will arrange follow-up as an outpatient for 1 week. All questions were answered today. Admission and Anticipated Discharge Date Admission Date: July 04, 2024 Supervising Physician Co-Signing Physician Notes I, Dr. Pinto, saw and examined the patient with my PA and agree with the above findings and plan o f care, I developed. Subjective Patient is sitting up in bed. Doing fairly well. Complaining of pain in her left hand. She does have the hand elevated. Splint is in place. She recently took some pain medication which does help ease up her discomfort. She states that it does not work for very long. Denies any numbness or tingling. Physical Exam Musculoskeletal: Exam focused on her left upper extremity: Splint and dressings are clean, dry and intact. Left hand is elevated. Normal sensation with light touch of the fingers of her left hand. Capillary refill is brisk of the 4th and 5th fingers. Mild tenderness with palpation of the dorsum of her hand. No significant edema. Results & Data Vital Signs (Past 12 Hours) Vital Signs Temp Pulse Pulse Resp BP Pulse Ox O2 Del Method 07/05/24 07:12 36.7 C 61 16 113/63 95 Room Air 07/05/24 02:29 36.9 C 93 H 18 139/75 94 Room Air 07/05/24 01:48 36.6 C 77 18 133/57 L 94 Room Air 07/05/24 01:30 36.8 C 79 16 113/70 95 Room Air 07/05/24 00:30 36.8 C 64 18 129/83 93 Room Air 07/05/24 00:01 36.5 C 76 16 129/67 93 Room Air 07/04/24 23:30 36.6 C 77 18 133/57 L 94 Room Air 07/04/24 23:15 36.7 C 85 24 156/80 H 93 Room Air Laboratory Results 07/05/24 07/04/24 Range/Units 07:18 16:14 WBC 9.73 7.21 (4.8-10.8) K/ul RBC 3.54 L 4.08 L (4.20-5.40) M/uL Hgb 11.1 L 12.9 (12.0-16.0) g/dl Hct 33.0 L 38.0 (37.0-47.0) % MCV 93.2 93.1 (80.0-100.0) fL MCH 31.4 31.6 (25.0-34.0) pg MCHC 33.6 33.9 (32.0-36.0) g/dL RDW Std Deviation 45.4 44.7 (36.4-46.3) fL RDW Coeff of [place] 13.2 13.2 (11.5-14.5) % Plt Count 166 204 (130-400) K/uL MPV 11.9 11.6 (9.4-12.4) fL Immature Gran % (Auto) 0.4 % Neut % (Auto) 56.2 % Lymph % (Auto) 30.1 % [place] % (Auto) 10.0 % Eos % (Auto) 2.5 % Baso % (Auto) 0.8 % Neut # (Auto) 4.05 (1.40-6.50) K/uL Lymph # (Auto) 2.17 (1.20-3.40) K/uL [place] # (Auto) 0.72 H (0.11-0.59) K/uL Eos # (Auto) 0.18 (0.00-0.50) K/uL Baso # (Auto) 0.06 (0.00-0.20) K/uL Immature Gran # (Auto) 0.03 (0.01-0.20) K/uL Sodium 145 145 (136-145) mmol/L Potassium 3.7 3.7 (3.5-5.1) mmol/L Chloride 112 H 109 H (98-107) mmol/L Carbon Dioxide 28 28 (21-32) mmol/L Anion Gap 5 8 (3-11) BUN 7 7 (6-23) mg/dl Creatinine 0.70 0.70 (0.6-1.2) mg/dl Est Cr Clr Drug Dosing 67.3 67.3 ml/min eGFR 89.58 89.58 BUN/Creatinine Ratio 10.0 10.0 (10-20) Glucose 90 112 H (70-99(Fasting)) mg/dl Calcium 8.8 9.9 (8.6-10.3) mg/dl Total Bilirubin 0.9 (0.2-1.0) mg/dl AST 20 (13-39) U/L ALT 12 (7-52) U/L Alkaline Phosphatase 60 (34-104) U/L Total Protein 7.0 (6.0-8.3) gm/dl Albumin 4.1 (3.4-5.0) gm/dl Globulin 2.9 (2.5-4.0) gm/dl Albumin/Globulin Ratio 1.4 (0.9-2) Diagnostic Findings Hand X-Ray 07/04/24 00:00 FL hand LT 2V CLINICAL HISTORY: LT HAND ORIF COMPARISON STUDY: None pertinent FLUOROSCOPY TIME: 10.7 seconds FLUOROSCOPY IMAGES: 3 EXPOSURE DOSE: 0.23 mGy FINDINGS: Fluoroscopic guidance provided for screw-plate fixation of the fifth metacarpal IMPRESSION: Dorsally applied screw plate fixation transfixing a fifth metacarpal fracture. Refer to the operative report for analysis real-time fluoroscopic observation ACT 112: Negative or not required by law. Electronically signed by: Carmella Mills M.D. 07/05/2024 7:[address] 07/04/24 14:47 CT cervical spine wo con CLINICAL HISTORY: Fall, struck L side of head. COMPARISON: 07/15/2023 TECHNIQUE: Multiple axial CT images of the cervical spine were obtained without contrast. A dose lowering technique was utilized adhering to the principles of ALARA. FINDINGS: There are lower cervical spine degenerative changes. No fracture or subluxation. Stable small thyroid nodules. There are carotid bulb calcifications. IMPRESSION: No cervical spine fracture seen. ACT 112: Negative or not required by law. The above report was generated using voice recognition software. It may contain grammatical, syntax or spelling errors. Electronically signed by: Rudi Lee M.D. 07/04/2024 3:46 PM Hand X-Ray 07/04/24 14:47 XR hand LT min 3V routine CLINICAL HISTORY: Fall, L hand pain COMPARISON: None FINDINGS: There is an acute mildly comminuted mildly displaced mildly angulated fracture distally at the fifth metacarpal. No other fracture or dislocation seen. IMPRESSION: Acute fracture distally at the fifth metacarpal. ACT 112: Negative or not required by law. Electronically signed by: Rudi Lee M.D. 07/04/2024 3:[address] 07/04/24 14:47 CT head/brain wo con CLINICAL HISTORY: Fall, struck L side of head. TECHNIQUE: Multiple axial CT images of the head were obtained without contrast. A dose lowering technique was utilized adhering to the principles of ALARA. CT DOSE: 1014.82 mGy.cm COMPARISON: 07/15/2023 FINDINGS: No intracranial hemorrhage seen. No mass effect, midline shift, or hydrocephalus. No skull fracture seen. Visualized paranasal sinuses are clear. No mastoid effusion. Stable mild chronic small vessel ischemic changes. IMPRESSION: No acute findings. ACT 112: Negative or not required by law. The above report was generated using voice recognition software. It may contain grammatical, syntax or spelling errors. Electronically signed by: Rudi Lee M.D. 07/04/2024 3:44 PM Knee X-Ray 07/04/24 14:47 XR knee LT 3V CLINICAL HISTORY: Fall, knee pain COMPARISON: 07/15/2023 FINDINGS: There is mild osteoarthritis. No fracture or dislocation. IMPRESSION: No fracture seen. ACT 112: Negative or not required by law. Electronically signed by: Rudi Lee M.D. 07/04/2024 3:34 PM Knee X-Ray 07/04/24 14:47 XR knee RT 3V CLINICAL HISTORY: Fall, knee pain COMPARISON: None FINDINGS: There is mild osteoarthritis. No fracture or dislocation. There are atherosclerotic calcifications. IMPRESSION: No fracture seen. ACT 112: Negative or not required by law. Electronically signed by: Rudi Lee M.D. 07/04/2024 3:36 PM Shoulder X-Ray 07/04/24 14:47 XR shoulder LT min 2V routine CLINICAL HISTORY: Fall, L shoulder pain COMPARISON: 07/15/2023 FINDINGS: No fracture or dislocation. No significant degenerative change. IMPRESSION: No fracture seen. ACT 112: Negative or not required by law. Electronically signed by: Rudi Lee M.D. 07/04/2024 3:34 PM Chest X-Ray 07/04/24 14:48 XR chest 1V portable CLINICAL HISTORY: fall COMPARISON STUDY: 11/21/2022 FINDINGS: Stable CABG. Stable cardiomegaly without pulmonary vascular congestion. No effusion, consolidation, or pneumothorax. IMPRESSION: No acute findings. ACT 112: Negative or not required by law. Electronically signed by: Rudi Lee M.D. 07/04/2024 3:36 PM
--- NOTE | 2024-07-05 16:56 | Hospitalist Progress Note ---
Date of Service July 05, 2024 Assessment & Plan (1) Open fracture of left hand: (2) Fall: Plan 74-year-old female PMHx HTN, dyslipidemia, depression with anxiety, essential tremors, cerebral amyloid angiopathy, chronic cerebral ischemia, OP, vascular dementia, OAB, and vitamin D deficiency who presents s/p GLF and L hand pain from the day of arrival. #Fall/5th metacarpal fracture CBC/BMP stable CXR, Knee XR (b/l), L shoulder XR w/o acute findings. Cervical spine CT w/o acute findings L Hand XR: acute fracture distally 5th metacarpal s/p ORIF of left 5th metacarpal w/ Dr. Pinto 07/04. IV Ancef x 48 hours for open fx Pain management per ortho Chronic conditions: /HTN: Mild dx on stress echo in 2013; Follows w/ cardiology. Lisinopril HCTZ Cerebral amyloid angiopathy/chronic headaches/tremor/dementia/gait disturbance: follows w/ neuro, topiramate OAB: Oxybutynin HLD: statin COPD: home inhalers GERD: Pantoprazole Dispo: Admit, med/sx VTE Prophylaxis: SCDs Anticipate discharge home 07/06 afternoon after cleared by ortho. Updated at bedside 07/05. Admission and Anticipated Discharge Date Admission Date: July 04, 2024 Subjective Patient seen and examined this morning. Patient reports having pain in her left hand but aside from this is feeling well today. She was tolerating a diet following surgery. at bedside. Physical Exam Constitutional: WD/WN, vitals as above Eyes: PERRL, conjunctivae normal, anicteric sclerae Respiratory: breathing unlabored Cardiovascular: well perfused Musculoskeletal: left hand in cast. Psychiatric: A+Ox3, euthymic affect Results & Data Results & Data Vital Signs (Past 12 Hours) Vital Signs Temp Pulse Resp BP Pulse Ox O2 Del Method 07/05/24 15:22 36.8 C 68 16 122/56 L 98 Room Air 07/05/24 07:12 36.7 C 61 16 113/63 95 Room Air PG Care Time/CCT Total # of Minutes Spent Total Time Spent with Patient: Total time spent is greater than 50% in coordination of care (as documented) at patient's floor/unit and/or counseling patient: Coding Level of Care Code 84462 SUB INP/OBS CARE 35MIN Diagnoses Open fracture of left hand S62.92XB Fall W19.XXXA
[2024-07-05] MEDS: MoRPHine SULFATE 2 MG/ML CARP IV PRN (19:54)
[2024-07-06 07:14] LABS: Hematocrit (blood only) 35.3 % (37.0-47.0); Hemoglobin 11.9 g/dl (12.0-16.0); Mean Corpuscular Hemoglobin 31.9 pg (25.0-34.0); Mean Corpuscular Hgb Conc 33.7 g/dL (32.0-36.0); Mean Corpuscular Volume 94.6 fL (80.0-100.0); Mean Platelet Volume 11.9 fL (9.4-12.4); Platelet Count 165 K/uL (130-400); RDW Coefficient of Variation 13.2 % (11.5-14.5); RDW Standard Deviation 46.1 fL (36.4-46.3); Red Blood Count 3.73 M/uL (4.20-5.40); White Blood Count 8.27 K/ul (4.8-10.8)
[2024-07-06 07:47] LABS: Calcium 8.6 mg/dl (8.6-10.3); Potassium 3.3 mmol/L (3.5-5.1)
[2024-07-06 07:53] LABS: BUN Creatinine Ratio 11.4 (10-20); Creatinine Clr Calc Pharmacy 67.3 ml/min
[2024-07-06 08:19] VITALS: BP 135/93; PULSE 91; RESP 16; TEMP 98.1; O2SAT 97
[2024-07-06] MEDS: POTASSIUM CHLORIDE CRTAB 20 MEQ TABCR PO STA (08:20)
--- NOTE | 2024-07-06 10:53 | Orthopedic Progress Note ---
Date of Service July 06, 2024 Assessment & Plan (1) Open fracture of left hand: Plan: The patient was educated regarding today's findings. Conservative care measures were discussed. Her dressings were changed. Her ulnar gutter splint was reapplied. She should leave this in place until she is seen in the office in a week. Continue with ice and elevation frequently to reduce pain and swelling. Continue oral pain medication. Before gentle range of motion of her thumb through long fingers to assist with circulation and prevent stiffness. Once she has completed her IV antibiotics around noon today, she may be discharged from an orthopedic standpoint. Continue Keflex 500 mg 3 times daily x 2 weeks. Care plan was discussed with Dr. Pinto. Admission and Anticipated Discharge Date Admission Date: July 04, 2024 Subjective This 74-year-old female is seen today in her room. She is 2 days status post left fifth metacarpal ORIF. She states there is pain in her hand. She denies any numbness or tingling. She is hoping to be discharged today. She would like to return home to her . No new complaints. Physical Exam Physical Exam: General: Well-developed, well-nourished, elderly female, in no acute distress. Obvious discomfort. Laying in bed. Alert and oriented. Conversant. Skin: Warm and dry with good turgor. The postsurgical dressing is in place on her left hand including an ulnar gutter splint. Upon removal, there is a moderate amount of dried blood present on her dorsal dressings. There is no active bleeding from her surgical incision. Expected postoperative edema in her hand and digits. Developing ecchymosis. No erythema. Musculoskeletal: The patient has intact motor function of her thumb, index, long, and ring fingers. There is intact flexion and extension to the little finger though it is limited secondary to pain. She also has intact motion to her wrist, though this is also limited secondary to pain. She has full elbow flexion and extension as well as supination and pronation. Neurologic: Gross sensation is intact across each of the digits of the left hand by soft touch. Peripheral pulses are 2+. Results & Data Vital Signs (Past 12 Hours) Vital Signs Temp Pulse Resp BP Pulse Ox O2 Del Method 07/06/24 07:22 36.7 C 91 H 16 135/93 97 Room Air
--- NOTE | 2024-07-06 12:14 | Discharge Summary ---
Discharge Summary Date of Service July 06, 2024 Principal Dx & Hospital Course #1 = Principal Diagnosis (1) Open fracture of left hand: (2) Fall: Plan 74-year-old female PMHx HTN, dyslipidemia, depression with anxiety, essential tremors, cerebral amyloid angiopathy, chronic cerebral ischemia, OP, vascular dementia, OAB, and vitamin D deficiency who presents s/p GLF and L hand pain from the day of arrival. #Fall/5th metacarpal fracture CBC stable, BMP w/ low K of 3.3, s/p repletion. CXR, Knee XR (b/l), L shoulder XR w/o acute findings. Cervical spine CT w/o acute findings L Hand XR: acute fracture distally 5th metacarpal s/p ORIF of left 5th metacarpal w/ Dr. Pinto 07/04. IV Ancef x 48 hours for open fx --> transition to Keflex 500mg TID x 14 days upon discharge. Pain management for home: Tylenol, Oxycodone for severe pain. Chronic conditions: /HTN: Mild dx on stress echo in 2013; Follows w/ cardiology. Lisinopril HCTZ Cerebral amyloid angiopathy/chronic headaches/tremor/dementia/gait disturbance: follows w/ neuro, topiramate OAB: Oxybutynin HLD: statin COPD: home inhalers GERD: Pantoprazole Dispo: Admit, med/sx VTE Prophylaxis: SCDs Discussed w/ ortho 07/06. Patient discharged home 07/06. Admission HPI Per Admitting Provider 74-year-old female PMHx HTN, dyslipidemia, depression with anxiety, essential tremors, cerebral amyloid angiopathy, chronic cerebral ischemia, OP, vascular dementia, OAB, and vitamin D deficiency who presents s/p GLF and L hand pain from the day of arrival. Patient states that she was walking outside to her mailbox with her umbrella when a strong ly of win came and started to pull her umbrella causing her to lose balance. She states that she fell onto the sidewalk then, landing on her L side and hand. She states that she did land on her knees initially then her L hand caught her fall. When she looked down, she noticed that a bone in her hand was out of her skin. Patient states that she did not have any symptoms prior to the fall to include chest pain, SOB, dizziness, or LOC. Her only complaint at this time is some discomfort in her hand, but no other concerns. Denying chest pain, SOB, palpitations, abdominal pain, N/V/D/C, LUTs, URI symptoms, or F/C. ED evaluation cytosis, stable H&H 12.9/38, CMP chloride 109, glucose 112; Cervical spine CT without acute findings; hand x-ray (L) with acute fracture distal fifth metacarpal; head CT without acute findings; knee XR L without acute fracture; knee XR R without acute fracture; shoulder XR without acute findings; CXR without acute findings; EKG (1920) undetermined rhythm with incomplete RBBB and nonspecific ST/T wave abnormality at 82 bpm, repeat at 194 sinus rhythm with frequent PVCs and incomplete RBBB as well as ST/T abnormalities at 73 bpm.; Provided with tetanus vaccine and cefazolin 2 g IV x [address] Please see Dr[address] Bhatt's attestation for adjustments/additions to treatment plan. Discharge Exam Constitutional WD/WN, vitals as above Eyes PERRL, conjunctivae normal, anicteric sclerae Respiratory breathing unlabored Cardiovascular well perfused Musculoskeletal cast left arm Psychiatric A+Ox3, euthymic affect Discharge Plan Discharge Items Patient Disposition: Home - Self-Care Reason For Visit: 5TH METATARSAL FX- ORIF Discharge Diagnosis: 5th metacarpal fracture Condition on Discharge: Good Activity: Resume your previous activity Lifting Comment: nothing more than a coffee cup in left hand Bathing Comment: keep left hand/arm dry. Non-emergency contact: Primary Care Provider and Surgeon Call non-emergency contact if: you have any medication questions, your symptoms worsen and you have a fever Follow-up/Referrals: Mary Carmen CRNP [Primary Care Provider] - Dorene Meza PA-C [Physician Posting Specialist] - 07/12/24 10:00 am Diet: Heart Healthy Addtl Attending Provider Instructions: Mrs. Hall, You were recently hospitalized following a fall. You experienced a fracture of your left 5th metacarpal and underwent surgery with Dr. Pinto on July 04. Please see recommendations below regarding your discharge. Please take Keflex three times daily for the next 14 days. Your first dose will be this evening, 07/06 at home. You may take with food to avoid GI upset. Please take a probiotic with your antibiotic to help promote good bacteria in your gut. Please use Oxycodone 5mg every 6 hours as needed for severe pain. Please use Tylenol as needed for mild-moderate pain. Please follow up with your surgeon within a week of discharge. They are arranging this appointment for you. Please resume the remainder of your medications. Please follow up with your PCP within 1-2 weeks of discharge. If you develop any fevers, purulent drainage at the incision site, or severe pain, please contact or surgeon or report to the ER for further care. Best of luck! Kezia Harris PA-C Pending Studies at Discharge: No Stand-Alone Forms: My [facility] [employer], Smoking Cessation Medications and DC Order Prescriptions: New oxycodone 5 mg Tablet 5 mg PO Q6H PRN (Reason: pain (scale score 7-10)) Qty: 14 0RF cephalexin 500 mg capsule 500 mg PO TID 14 Days Qty: 42 0RF Continued fluticasone furoate-vilanterol [Breo Ellipta] 100-25 mcg/dose blister with device 1 inh inhalation DAILY ibuprofen 600 mg tablet 600 mg PO Q8H PRN (Reason: Pain) Rx Instructions: 3 tabs qam and 3 tabs qhs baclofen 10 mg tablet 10 mg PO TID PRN (Reason: muscle spasm) Qty: 30 0RF lisinopril 5 mg tablet 5 mg PO QAM Qty: 90 3RF albuterol sulfate 90 mcg/actuation HFA aerosol inhaler 1 inh inhalation QID PRN (Reason: shortness of breath or wheezing) Qty: 8.5 5RF atorvastatin 80 mg tablet 80 mg PO HS Qty: 90 3RF metoprolol succinate 25 mg tablet extended release 24 hr 25 mg PO QAM Qty: 90 3RF Rx Instructions: Asked about metoprolol being on patient's allergy list. He said she can take medication fine. oxybutynin chloride 15 mg tablet extended release 24hr 15 mg PO QAM Qty: 90 3RF topiramate 25 mg tablet 25 mg PO BID Qty: 180 3RF calcium carbonate [Calcium 600] 600 mg calcium (1,500 mg) tablet 600 mg PO DAILY ipratropium-albuterol 0.5 mg-3 mg(2.5 mg base)/3 mL solution for nebulization 3 ml inhalation Q4H PRN (Reason: wheezing) Qty: 180 1RF pantoprazole [Protonix] 40 mg tablet,delayed release (DR/EC) 40 mg PO QAM Qty: 90 3RF aspirin 81 mg tablet,delayed release (DR/EC) 81 mg PO HS multivitamin Tablet 1 tab PO QPM cyanocobalamin (vitamin B-12) [Vitamin B-12] 1,000 mcg Tablet 1,000 mcg PO QPM cholecalciferol (vitamin D3) 50 mcg (2,000 unit) capsule 50 mcg PO QPM hydrochlorothiazide 12.5 mg tablet 12.5 mg PO QAM PRN (Reason: swelling) No Action (DME) nebulizer accessories Kit See Rx Instructions .Route Qty: 1 0RF Rx Instructions: As directed (DME) nebulizer and compressor Device See Rx Instructions .ROUTE .MEDSUPPLY Qty: 1 0RF Rx Instructions: As directed Discharge Orders: Discharge Order (Routine); Ordered 07/06/24 Ordered By: Kezia Brody/Other Patient Handouts: ED Fall Prevention Admission Data Admit Date/Time: 07/04/24 20:05 Attending Provider: Kelly Parnell Admit Provider: Shannan Bhatt Primary Care Provider: Mary Carmen Other Providers: Sebastian Pinto Other Interventions: Discharge Summary Assessment (RN) Last Done: 07/06/24 11:10 Hospital Stay Data Consultations 07/05/24 14:11 Consult Orthopedic Surgery Routine Procedures Performed Operation Date: 07/04/24 20:00 Actual Procedures p Open Reduction Internal Fixation Left 5th metacarpal(Left) - Sebastian Pinto MD s Irrigation and Debridement of the left hand, (Left) - Sebastian Pinto MD Diagnostic Imagining Performed 07/04/24 FL hand LT 3V RTN Routine 07/04/24 14:47 CT cervical spine wo con Stat CT head/brain wo con Stat Pending Results Patient Have Any Pending Studies at Discharge: No Discharge Instructions Given to Patient (Per Discharging Provider) Mrs. Hall, Reji were recently hospitalized following a fall. You experienced a fracture of your left 5th metacarpal and underwent surgery with Dr. Pinto on July 04. Please see recommendations below regarding your discharge. Please take Keflex three times daily for the next 14 days. Your first dose will be this evening, 07/06 at home. You may take with food to avoid GI upset. Please take a probiotic with your antibiotic to help promote good bacteria in your gut. Please use Oxycodone 5mg every 6 hours as needed for severe pain. Please use Tylenol as needed for mild-moderate pain. Please follow up with your surgeon within a week of discharge. They are arranging this appointment for you. Please resume the remainder of your medications. Please follow up with your PCP within 1-2 weeks of discharge. If you develop any fevers, purulent drainage at the incision site, or severe pain, please contact or surgeon or report to the ER for further care. Best of luck! Kezia Harris PA-C Total Time Total Time Spent Total Time Spent (In Minutes): 50 Total Time Includes: Examination of the Patient, Discharge Planning, Medication Reconciliation and Communication With Other Providers Coding Level of Care Code 61517 INP/OBS DISCH >30 MIN Diagnoses Open fracture of left hand S62.92XB Fall W19.XXXA
== END 2024-07-06 12:36 | disposition home or self-care (01) | DRG 513 ==
LOC: ED 14:22 → 3N 19:53 → SUATTDRO 20:05
DX: Z86.74 Personal history of sudden cardiac arrest; W01.0XXA Fall on same level from slipping, tripping and stumbling without subsequent striking against object, initial encounter; I25.5 Ischemic cardiomyopathy; E55.9 Vitamin D deficiency, unspecified; I25.10 Atherosclerotic heart disease of native coronary artery without angina pectoris; Z88.2 Allergy status to sulfonamides; E85.4 Organ-limited amyloidosis; F32.A Depression, unspecified; Q24.5 Malformation of coronary vessels; Z79.82 Long term (current) use of aspirin; Y92.014 Private driveway to single-family (private) house as the place of occurrence of the external cause; N32.81 Overactive bladder; G25.0 Essential tremor; J44.9 Chronic obstructive pulmonary disease, unspecified; M25.562 Pain in left knee; I68.0 Cerebral amyloid angiopathy; M25.561 Pain in right knee; I10 Essential (primary) hypertension; S62.396B Other fracture of fifth metacarpal bone, right hand, initial encounter for open fracture; E78.5 Hyperlipidemia, unspecified; F01.50 Vascular dementia, unspecified severity, without behavioral disturbance, psychotic disturbance, mood disturbance, and anxiety; M25.512 Pain in left shoulder; K21.9 Gastro-esophageal reflux disease without esophagitis; Z95.5 Presence of coronary angioplasty implant and graft